=== PATIENT | male | born 1960 | race Caucasian/White ===

== ENCOUNTER → 2024-06-18 | Outpatient (CLI) | payer OTHER, SELFPAY ==
--- NOTE | 2024-06-18 15:50 | RAD_ITS ---
INDICATION: PRE OP EXAMINATION/TECHNIQUE: X-RAY - XR Chest 2 Views COMPARISON: No relevant prior comparison study available FINDINGS: LINES/DEVICES: None. LUNGS: The lungs are hyperinflated. No consolidation, edema or effusion. No pneumothorax. MEDIASTINUM AND CARDIOVASCULAR STRUCTURES: Cardiac silhouette not enlarged. Central airways and mediastinal contour are unremarkable. BONES AND SOFT TISSUES: Unremarkable. RAD/Chest PA and Lateral IMPRESSION: Hyperinflated lungs. Electronically Signed: Patito Sainz MD at 8:31 EST ,
[2024-06-18 16:19] LABS: Absolute Lymphocyte Count 3.63 X10^3/uL (0.83-4.51); Absolute Neutrophil Count 4.5 X10^3/uL (2.0-7.7); Basophil# 0.04 X10^3/uL; Basophil% 0.4 % (0-1); Eosinophil# 0.19 X10^3/uL; Hematocrit 45.5 % (40-54); Hemoglobin 15.2 g/dL (13.0-16.5); Lymphocyte # 3.63 X10^3/ul (0.83-4.51); Lymphocyte % 38.7 % (19-41); Mean Corp Hgb Conc 33.4 g/dL (32-36); Mean Corpuscular Hgb 31.2 pg (27.0-32.0); Mean Corpuscular Volume 93.4 fL (80-94); Mean Platelet Vol. 8.7 fl (6.2-12.0); Monocyte# 1.01 X10^3/uL; Monocyte% 10.8 % (0-10); NRBC Flagged by Analyzer 0 % (0-5); Neutrophil # 4.47 X10^3/uL (2.7-7.7); Neutrophil % 47.8 % (47-70); Platelet Count 372 K/mm3 (150-450); RBC Distribution Width CV 13.2 % (11.6-14.6); RBC Distribution Width SD 45.2 fl (35.1-43.9); Red Blood Count 4.87 M/mm3 (4.6-6.2); White Blood Count 9.4 K/mm3 (4.4-11.0)
[2024-06-18 16:40] LABS: Color, Urine Yellow (Yellow); Glucose, Dipstick Normal (Normal); Ketone-Dipstick Negative (Negative); Leukocyte Esterase-Dipstick Negative /ul (Negative); Nitrite-Dipstick Negative (Negative); Occult Blood-Urine Negative /ul (Negative); Protein-Dipstick Negative (Negative); Urine Bilirubin Dipstick Negative (Negative); Urine Clarity Clear (Clear); Urine Urobilinogen Normal (Normal)
[2024-06-18 16:58] LABS: AST(SGOT) 18 U/L (15-37); Alanine Aminotransfer ALT/SGPT 23 U/L (16-61); Albumin, Serum 3.9 g/dL (3.2-5.0); Alkaline Phosphatase 74 U/L (45-117); Anion Gap 5 (5-15); BUN 8 mg/dL (7-18); BUN/Creat Ratio 10.7 RATIO (10-20); Calcium,Total 9.4 mg/dL (8.5-10.1); Chloride 104 mmol/L (98-107); Cholesterol 193 mg/dL (200); Creatinine, Serum 0.75 mg/dL (0.70-1.30); EST Glomerular Filtration Rate 111 mL/min (>60); Est Glom Filt Rate - Afr Amer 134 mL/min (>60); Globulin 3.8 g/dL (2.2-4.2); Glucose 90 mg/dL (74-106); High Density Lipoprotein 75 mg/dL; Potassium 4.2 mmol/L (3.5-5.1); Protein, Total 7.7 g/dL (6.4-8.2); Sodium Level 136 mmol/L (136-145); Triglycerides 73 mg/dL; Very Low Density Lipoprotein 15 mg/dL (5-40)
== END | disposition home or self-care (01) ==
PROVIDERS: PCP Family Medicine
DX: Z01.818 Encounter for other preprocedural examination (principal); I10 Essential (primary) hypertension; E78.5 Hyperlipidemia, unspecified
CPT/HCPCS: 36415; 71046; 80053; 80061; 81002; 84443; 85025

== ENCOUNTER 2024-06-29 09:49 | Day surgery (SDC) | payer OTHER, SELFPAY ==
[2024-06-29] VITALS (8 sets, daily range): BP systolic 133–164; BP diastolic 82–97; PULSE 82–95; RESP 16–18; TEMP 36.5–36.6; O2SAT 96–99; BMI 22.1
--- NOTE | 2024-06-29 | LES_PTH ---
PATIENT: MIGUEL DOE LOC: [facility] [place][id number] AGE/SX: 63/M ROOM: RE06/29/[address]: Dr. Tea Zaman MD : 1960 BED: DIS: 06/29/2024 SPEC #: [id number] RECD: 06/29/24 13:30 STATUS: JANUARY PAVAN #: [id number] LISA: 06/29/24 00:[address]: Tea Zaman DEPT: SURGICAL PATHOLOGY RECD BY: Los Beckett ENTERED: 06/29/24 13:34 SP TYPE: Lesion OTHR DR: Luis De La Rosa, [facility], RN ONCOLOGY RESEARCH-C Tissues: A - CYST B - Skin of nose, NOS C - Skin of arm Procedures: Surgery Specimen Level III Surgery Specimen Level IV HEADER OPERATION: Excision cyst right cheek with intermediate closure PRE-OP DIAGNOSIS: Neoplasm of uncertain behavior of skin of upper extremity, neoplasm of uncertain behavior of skin of nose, sebaceous cyst TISSUE SUBMITTED: A- Cyst right cheek, B-Lesion nose, C=Lesion left arm MICROSCOPIC DIAGNOSIS A. Cyst right cheek, excision: Inflamed epidermal inclusion cyst. B. 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 Actinic keratosis and solar elastosis. See comment. C. Lesion left arm, excisional biopsy: Basal cell carcinoma, nodular type, completely excised. Actinic keratosis and solar elastosis. 07/02/2024 COMMENT B. The tumor measures 0.7 x 0.2 cm (measured microscopically) and is present at the deep resection margin. Lymph-vascular or perineural invasion is not identified. MICROSCOPIC DESCRIPTION Slides are reviewed. GROSS DESCRIPTION A. Received in fixative is one container labeled with the patient's name and designated Cyst right cheek. The specimen consists of a piece of skin with underlying tissue measuring 4.0 x 2.2cm and 1.0cm in depth. Sections reveal a cyst that was previously ruptured filled with goodson-white cheesy material occupying almost entire underlying tissue. Filament Tester sections are submitted in one cassette. B. Received in fixative is one container labeled with the patient's name and designated Lesion nose. The specimen consists of a shave biopsy of goodson-white skin measuring 1.6 x 1.0cm and 0.1cm in thickness. The specimen is inked, serially sectioned and submitted entirely in one cassette. C. Received in fixative is one container labeled with the patient's name and designated Lesion left arm. The specimen consists of a goodson-white skin ellipse measuring 2.6 x 1.7cm and up to 0.3cm in thickness. The specimen is inked, serially section and submitted entirely in two cassettes. 06/29/2024 TC: 0 CPT:82422k3,01041
[2024-06-29] MEDS: 0.9% Normal Saline (1000mL) 1,000 ML 15 ML IV (10:37)
--- NOTE | 2024-06-29 10:43 | PCM.HP.BLA ---
History and Physical Date of Admission: 06/29/24 The patient is examined and there are no changes to the H&P dated 06/18/2024. He presents for excision of a subcutaneous cyst of the right cheek, excision of the lesion of the nose and excision of a neoplasm of the left arm. The patient is marked in the preop holding area and informed consent obtained. Assessment & Plan Assessment/Plan (1) Neoplasm of uncertain behavior of skin of upper extremity: (2) Neoplasm of uncertain behavior of skin of nose: (3) Sebaceous cyst: PLAN: Plan Patient for excision cyst of the right cheek, Nose, And left arm
--- NOTE | 2024-06-29 11:11 | PRE.ANES_ITS ---
ASA Classification* ASA Classification ASA Classification: 2 Assessment & Plan Anesthesia* Anesthesia Assessment Anesthesia Assessment: Discussed sedation and/or anesthesia options, risks, benefits, and alternatives with patient/parents/legal guardian/POA. Questions invited. The patient/parents/legal guardian/POA seems to understand and agrees to proceed with anesthesia plan. Reviewed the physical assessment, medical history, allergy history and patient home medications list prior to surgery/procedure/anesthetic and documented any changes. Performed airway and anesthesia risk assessments. Anesthesia Type Anesthesia Type: General History Source History Obtained from:: Patient and Chart Anesthesia Focused Assessment* Temperature: 97.7 F Pulse Rate: 82 Blood Pressure: 164/85 Respiratory Rate: 16 Pulse Ox: 96 Oxygen Delivery Method: Room Air Airway Assessment Mouth opens: >3 cm Mallampati Score: I Teeth Condition: Caps/Crowns (Patient has a crown left upper molar. It is tight.) Neck Range of motion (ROM): Full ROM Focused Labs Anesthesia Preop lab: CBC WBC 9.4 K/mm3 (4.4-11.0) 06/18/24 15:29 RBC 4.87 M/mm3 (4.6-6.2) 06/18/24 15:29 Hgb 15.2 g/dL (13.0-16.5) 06/18/24 15:29 Hct 45.5 % (40-54) 06/18/24 15:29 Plt Count 372 K/mm3 (150-450) 06/18/24 15:29 CHEMISTRY Potassium 4.2 mmol/L (3.5-5.1) 06/18/24 15:29 Sodium 136 mmol/L (136-145) 06/18/24 15:29 BUN 8 mg/dL (7-18) 06/18/24 15:29 Creatinine 0.75 mg/dL (0.70-1.30) 06/18/24 15:29 Glucose 90 mg/dL (74-106) 06/18/24 15:29 TSH 3.100 uIU/mL (0.358-3.740) 06/18/24 15:29 COAG Pre-Assessment Diagnosis/Proposed Procedure Planned Operative Procedure(s): (R) Excision cyst right cheek with intermediate closure,excision neoplasm nose, excision neoplasm left arm Anesthesia History 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 When Was Last Pacemaker Check QUESTION #4 FULL TEXT: You/Your Family Experience fever (hyperthermia) with Anesthesia Last Oral Intake Last Oral intake: Last Oral Intake NPO since 21:00 06/29/24 10:23 Meds taken in AM with sips of Yes 06/29/24 10:23 water? Meds patient instructed to lisinopril 06/29/24 10:23 take am of surgery Any additional information?: Yes Meds taken in AM with sips of water?: Yes PONV PONV - water well driller: PONV - water well driller Female No 06/19/24 14:23 HX of Motion Sickness No 06/19/24 14:23 HX of N/V After Surgery No 06/19/24 14:23 Non-Smoker No 06/19/24 14:23 Duration of Surgery greater Yes 06/19/24 14:23 than 60 minutes Number of Risk Factors 1 06/19/24 14:23 PONV Score Low Risk 06/19/24 14:23 Height & Weight Height & Weight: Anesthesia: Height & Weight Height 5 ft 10 in 06/29/24 10:23 Weight: 70 kg 06/29/24 10:23 Body Mass Index (BMI) 22.1 06/29/24 10:23 Respiratory Assessment Respiratory Assessment - water well driller: Respiratory Tract Infection Hx - water well driller Hx Respiratory Tract Infection No 06/19/24 14:23 STOP Sleep Apnea STOP Sleep Apnea - water well driller: STOP Sleep Apnea - water well driller Hx Hypertension Yes: just started new med 12 06/19/24 14: Hx Sleep Apnea No 06/19/24 14:23 CPAP BIPAP Do you snore loudly (louder No 06/19/24 14:23 than talking or can be heard Do you often feel tired/ No 06/19/24 14:23 fatigued/ sleepy during daytime? Has anyone observed you stop No 06/19/24 14:23 breathing during sleep? STOP Results Negative 06/19/24 14:23 QUESTION #5 FULL TEXT : Do you snore loudly (louder than talking or can be heard through closed doors)? 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 Specify any problems Hx of Preganancy in last 3 N/A 06/19/24 14:23 Months Nurse Filling Out Transfusion NBUCHER 06/19/24 14:23 & Questions: Date: 06/19/24 06/19/24 14:23 Time: 14:24 06/19/24 14:23 Patient unable to answer at this time (ie. confused, unrespo /Reproduction History /Reproductive History - water well driller: /Reproductive Hx- water well driller Hx Now No 06/19/24 14:23 Gestational Age (in weeks): EDC: Hx Hx Para Hx Section SAB No 06/19/24 14:23 Active Medications Active Medications: Current Medications Generic Name Dose Route Start Last Admin Trade Name Freq PRN Reason Stop Dose Admin Cefazolin Sodium 2 gm/ N/A 20 mls @ 400 mls/hr 06/29/24 11:30 IV 06/29/24 11:32 PREOP ONE Sodium Chloride 1,000 mls @ 15 mls/hr 06/29/24 10:30 06/29/24 10:37 IV 07/02/24 05:09 15 mls/hr .Q48H DENN[place] Administration Protocol PFSH Medical History Loss of hearing Wears glasses Smoker Hypertension History of hearing problem History of back problems Home Medications ?Medication ?Instructions ?Recorded ?Last Taken ?Type lisinopril 10 mg tablet 20 mg PO DAILY 06/19/24 06/29/24 04:30 History Allergy/AdvReac Type Severity Reaction Status Date / Time No Known Allergies Allergy Verified 06/19/24 14:21 Surgical History History of inguinal hernia repair History of cataract extraction with lens replacement (~2021) Social History Smoking Status: Current every day smoker tobacco type: cigarettes alcohol intake: never substance use type: does not use additional social history: pt denies aspirin and ibuprofen use, pt denies vaping, denies marijuana use, denies edibles. Review of Systems (Anesthesia) ROS Narrative System reviewed and no additional complaints, except as documented.
[2024-06-29] MEDS: Cefazolin 2 GM in Syringe IV (11:25)
[2024-06-29] MEDS: Povidone Iodine 30 ML Opthalmic Sol 1 DRP (11:45)
[2024-06-29] MEDS: Lidocaine 1% /Epi 1:100 (20ml) 20 ML Vial (11:51)
[2024-06-29] MEDS: BACITRACIN/POLYMYXIN B 15 GM Tube 1 APPLIC (12:56)
--- NOTE | 2024-06-29 13:06 | EX.PCM.DISCH ---
Discharge Instructions Dressing / Incision Additional Dressing/Incision Instructions:: On the cheek, you can leave this dressing on until seen next week in the office. (If it falls off, replace with gauze and tape in place) On the nose, apply antibiotic ointment (like neosporin, bacitracin, or triple antibiotic ointment) 1 x a day On the arm, you can leave this dressing on until seen in the office next week. Until seen next week, keep the dressings dry (sponge bathe only) Take the oral antibiotic (Keflex) 2 x a day until finished. Keep your back elevated (recliner position) at night to decrease swelling and bruising. Follow Up Care Please Follow Up With: Tea Zaman MD When: next week Test Results: Test results from this visit will be discussed in further detail at your follow-up appointment, if applicable. Discharge Plan Admission Attending Provider: Tea Zaman Primary Care Provider: Luis De La Rosa Instructions Print Language: Canadian Discharge Orders/Prescriptions Prescriptions: New cephalexin 500 mg capsule 500 mg PO BID 7 Days Qty: 14 0RF No Action lisinopril 10 mg tablet 20 mg PO DAILY Referrals / Follow Up: Luis De La Rosa, LANGUAGE AND LITERATURE DIVISION CHAIR-C [Primary Care Provider] - Disposition Disposition (needs filled in before D/C Order can be placed): Home, Self Care
--- NOTE | 2024-06-29 13:12 | PCM.POST.ANE ---
Anesthesia: Postop Eval I Current Vital Signs Temperature: 97.8 F Pulse Rate: 90 Blood Pressure: 137/82 Respiratory Rate: 18 Pulse Ox: 98 Oxygen Delivery Method: Room Air Assessment Airway patent: Yes Spontaneous unlabored respirations: Yes Mental status: Awake and Calm nausea: No Vomiting: No Anesthesia Complication: No Fluid Hydration Crystalloid volume administer (ml): 1,000 Total IV fluid infused: 1,000 Progress Note Anesthesia document: Postop Eval 1 completed: Yes
--- NOTE | 2024-06-29 13:12 | PCM.OPRPT ---
Problems Associated Problem List Diagnoses (1) Neoplasm of uncertain behavior of skin of upper extremity: (2) Neoplasm of uncertain behavior of skin of nose: (3) Sebaceous cyst: Operative Report (Standard) Operative Information Date of Procedure: 06/29/24 Pre-Operative Diagnosis: Cyst of right cheek Atrophic neoplasm of nasal dorsum Ulcerated lesion left elbow Post-Operative Diagnosis: Same Surgery/Procedure Performed: Excision cyst of right cheek (5.5 cm) with intermediate closure of the same length Excision neoplasm nose (2.0 cm) Excision neoplasm left arm at the elbow (5.0 cm) record center specialist: Yes Four Slide Operator: Kirill Lozada Tasks completed by nurse first assist: Retracting Type of Anesthesia: General RN Documented Start/Stop Times: Operation Date: 06/29/24 11:30 Case Time Into Pre-Op 06/29/24 10:12 Out of Pre-Op 06/29/24 11:19 Anesthesia Start 06/29/24 11:21 Into Room 06/29/24 11:21 Procedure Start 06/29/24 11:51 Procedure End 06/29/24 13:02 Anesthesia End 06/29/24 13:07 Out of Room 06/29/24 13:07 Procedure Start Time: 11:51 Procedure Stop Time: 13:02 Select all DRAINS/GRAFTS/IMPLANTS that apply: None Estimated Blood Loss: Minimal Specimen collected: Yes Description of specimen(s) removed: Cyst of right cheek Neoplasm of nasal dorsum Neoplasm left elbow Description of surgery: The patient presents today with a large draining cystic lesion of the right cheek, and atrophic neoplasm of the nasal dorsum, and an ulcerated lesion of the left elbow. He presents for excision of the above sites and submission for pathologic valuation. Informed consent was obtained prior to surgery. He is aware the potential need for further surgery depending on the resulting pathology. The potential risks of the procedure were reviewed including the potential for facial asymmetry. He is marked in the preop holding area prior to surgery. The patient is brought to the operating room and placed under general anesthesia in the supine position. The face and left arm are prepped and draped in the usual sterile fashion. 1% Xylocaine with epinephrine is used for local anesthetic. Following this, an elliptical incision is made over the apex of the cyst and dissection carried down to the cyst. It is enucleated from its bed. The cyst is noted to be draining from an open site during the procedure. This is primarily sebaceous debris however a purulent drainage also returns. The cyst is in this way totally removed. It is passed off the operative field to be sent to pathology. Hemostasis is controlled with cautery. The wound is irrigated with saline irrigation. The wound is then closed and layers using a Monocryl suture in the subcutaneous tissue and dermis. Skin edges are approximated with a running chromic suture. The site is dressed with dry gauze and tape. We then directed our attention to neoplasm of the nose and after this is anesthetized with 1% Xylocaine with epinephrine, it is excised and passed off the operative field to be sent to pathology. Hemostasis is controlled with cautery. The wound is then closed with a combination of interrupted silk suture as well as a running chromic suture. Antibiotic ointment is placed on the site. We then directed our attention to the ulcerated neoplasm of the left elbow. After this is anesthetized with 1% Xylocaine with epinephrine to facilitate hemostasis, it is excised down to subcutaneous tissue and passed off the operative field to be sent to pathology. The site is then closed with a combination of interrupted and running chromic suture. Xeroform gauze, type VII gauze, and an Keron wrap were used to dress the site. He tolerated the procedure well was taken to the recovery area in an awakening in stable condition. Needle and sponge counts are correct. Surgical Findings: As above Complications Complications: No Admit VTE Documentation VTE Mechan Device Prophylaxis: SCD's
--- NOTE | 2024-06-29 13:20 | POSTOPAN2_ITS ---
Anesthesia Postop Eval I Sum Postop Eval Completion status Anesthesia document: Postop Eval 1 completed: Yes Anesthesia Postop Eval I Summary Anesthesia Postop Eval I Summary: Anesthesia Postop Eval I: Assessment Summary Airway patent Yes 06/29/24 13:12 [email or web address] [email or web address] Spontaneous unlabored Yes 06/29/24 13:12 PIPE [email or web address].DARLIN respirations Mental status Awake,Calm 06/29/24 13:12 [email or web address] nausea No 06/29/24 13:12 PIPE [email or web address].[email or web address] Vomiting No 06/29/24 13:12 PIPE LAYER.[email or web address] Anesthesia Postop Eval I: Fluid Summary Crystalloid volume administer 1,000 06/29/24 13:12 PIPE [email or web address] (ml) Colloids volume administered ( ml) Blood Product volume administered (ml) Total IV fluid infused 1,000 06/29/24 13:12 PIPE [email or web address].[email or web address] Anesthesia Postop Eval I: Summary Notes Anesthesia Complication No 06/29/24 13:12 PIPE [email or web address] Anesthesia Complication Comment: Post-operative progress note Anesthesia: Postop Eval II Evaluation Mental status: Awake Pain Level: 1 nausea: No Vomiting: No
--- NOTE | 2024-06-29 13:20 | PCM.POSTANE2 ---
Anesthesia Postop Eval I Sum Postop Eval Completion status Anesthesia document: Postop Eval 1 completed: Yes Anesthesia Postop Eval I Summary Anesthesia Postop Eval I Summary: Anesthesia Postop Eval I: Assessment Summary Airway patent Yes 06/29/24 13:12 FOUNDRY [email or web address] Spontaneous unlabored Yes 06/29/24 13:12 FOUNDRY HAND.DARLIN respirations Mental status Awake,Calm 06/29/24 13:12 FOUNDRY HAND.[email or web address] nausea No 06/29/24 13:12 FOUNDRY HAND.[email or web address] Vomiting No 06/29/24 13:12 FOUNDRY HAND.[email or web address] Anesthesia Postop Eval I: Fluid Summary Crystalloid volume administer 1,000 06/29/24 13:12 FOUNDRY HAND.[email or web address] (ml) Colloids volume administered ( ml) Blood Product volume administered (ml) Total IV fluid infused 1,000 06/29/24 13:12 FOUNDRY HAND.[email or web address] Anesthesia Postop Eval I: Summary Notes Anesthesia Complication No 06/29/24 13:12 FOUNDRY HAND.[email or web address] Anesthesia Complication Comment: Post-operative progress note Anesthesia: Postop Eval II Evaluation Mental status: Awake Pain Level: 1 nausea: No Vomiting: No
== END 2024-06-29 14:08 | disposition home or self-care (01) ==
LOC: SDC 09:53 → AC 09:55
PROVIDERS: Referring Provider Plastic Surgery; Visit Provider Plastic Surgery
PROC: (CPT 11446; principal; 2024-06-29 11:15)
DX: C44.619 Basal cell carcinoma of skin of left upper limb, including shoulder (principal); L72.3 Sebaceous cyst; Z79.899 Other long term (current) drug therapy
CPT/HCPCS: 11446; 11642; 11606; 12053; 00300; 88304; 88305; J2405

== ENCOUNTER → 2024-07-23 | Outpatient (CLI) | payer OTHER, SELFPAY | END | disposition home or self-care (01) | LOC: LAB 12:30 | DX: Z01.818 Encounter for other preprocedural examination (principal) | CPT/HCPCS: 36415; 80053; 84439; 84443; 84481; 85025 ==

== ENCOUNTER 2024-08-02 05:44 | Day surgery (SDC) | payer OTHER, SELFPAY ==
[2024-08-02] VITALS (9 sets, daily range): BP systolic 109–150; BP diastolic 67–95; PULSE 77–94; RESP 16; TEMP 36.4–37.1; O2SAT 92–100; BMI 22.4
[2024-08-02] MEDS: 0.9% Normal Saline (1000mL) 1,000 ML 15 ML IV (06:13)
--- NOTE | 2024-08-02 06:21 | PRE.ANES_ITS ---
ASA Classification* ASA Classification ASA Classification: 2 Assessment & Plan Anesthesia* Anesthesia Assessment Anesthesia Assessment: Discussed sedation and/or anesthesia options, risks, benefits, and alternatives with patient/parents/legal guardian/POA. Questions invited. The patient/parents/legal guardian/POA seems to understand and agrees to proceed with anesthesia plan. Reviewed the physical assessment, medical history, allergy history and patient home medications list prior to surgery/procedure/anesthetic and documented any changes. Performed airway and anesthesia risk assessments. Anesthesia Type Anesthesia Type: General History Source History Obtained from:: Patient and Chart Anesthesia Focused Assessment* Temperature: 98.0 F Pulse Rate: 86 Blood Pressure: 127/82 Respiratory Rate: 16 Pulse Ox: 100 Oxygen Delivery Method: Room Air Airway Assessment Mouth opens: >3 cm Mallampati Score: II Teeth Condition: Intact Focused Labs Anesthesia Preop lab: CBC WBC 9.4 K/mm3 (4.4-11.0) 06/18/24 15:29 RBC 4.87 M/mm3 (4.6-6.2) 06/18/24 15:29 Hgb 15.2 g/dL (13.0-16.5) 06/18/24 15:29 Hct 45.5 % (40-54) 06/18/24 15:29 Plt Count 372 K/mm3 (150-450) 06/18/24 15:29 CHEMISTRY Potassium 4.2 mmol/L (3.5-5.1) 06/18/24 15:29 Sodium 136 mmol/L (136-145) 06/18/24 15:29 BUN 8 mg/dL (7-18) 06/18/24 15:29 Creatinine 0.75 mg/dL (0.70-1.30) 06/18/24 15:29 Glucose 90 mg/dL (74-106) 06/18/24 15:29 TSH 3.100 uIU/mL (0.358-3.740) 06/18/24 15:29 COAG Pre-Assessment Diagnosis/Proposed Procedure Planned Operative Procedure(s): Excision squamous cell carcinoma nose with frozen section(2.5cm)with possible rotation flap Anesthesia History Anesthesia History - char conveyor tender: Anesthesia History - char conveyor tender Hx Hospitalization No 07/31/24 11:35 Any Problems With Anesthesia No 07/31/24 11:35 Cholinesterase deficiency No 07/31/24 11:35 You/Your Family Experience No 07/31/24 11:35 fever (hyperthermia) with Relationship Recent Exposure to Contagious No 08/02/24 06:08 Disease Does patient have nerve No 07/31/24 11:35 stimulator Patient instructed to have device shut off --Does patient have Pacemaker No 08/02/24 06:08 or ICD? When Was Last Pacemaker Check QUESTION #4 FULL TEXT: You/Your Family Experience fever (hyperthermia) with Anesthesia Last Oral Intake Last Oral intake: Last Oral Intake NPO since 18:00 08/02/24 06:08 Meds taken in AM with sips of No 08/02/24 06:08 water? Meds patient instructed to take am of surgery PONV PONV - char conveyor tender: PONV - char conveyor tender Female No 07/31/24 11:35 HX of Motion Sickness No 07/31/24 11:35 HX of N/V After Surgery No 07/31/24 11:35 Non-Smoker No 07/31/24 11:35 Duration of Surgery greater No 07/31/24 11:35 than 60 minutes Number of Risk Factors PONV Score Height & Weight Height & Weight: Anesthesia: Height & Weight Height 5 ft 9 in 08/02/24 06:08 Weight: 69 kg 08/02/24 06:08 Body Mass Index (BMI) 22.4 08/02/24 06:08 Respiratory Assessment Respiratory Assessment - char conveyor tender: Respiratory Tract Infection Hx - char conveyor tender Hx Respiratory Tract Infection No 07/31/24 11:35 STOP Sleep Apnea STOP Sleep Apnea - char conveyor tender: STOP Sleep Apnea - char conveyor tender Hx Hypertension Yes: just started new med 12 07/31/24 11:35 /05/03 Hx Sleep Apnea No 07/31/24 11:35 CPAP BIPAP Do you snore loudly (louder No 07/31/24 11:35 than talking or can be heard Do you often feel tired/ No 07/31/24 11:35 fatigued/ sleepy during daytime? Has anyone observed you stop No 07/31/24 11:35 breathing during sleep? STOP Results Negative 07/31/24 11:35 QUESTION #5 FULL TEXT : Do you snore loudly (louder than talking or can be heard through closed doors)? Tobacco Use History Tobacco Use History - char conveyor tender: Tobacco Use History - char conveyor tender Tobacco Use Smoking Status Current every day smoker 07/31/24 11:35 Hx Tobacco Use Yes 07/31/24 11:35 Years Smoking Packs Smoked per Day 1 07/31/24 11:35 Smoking Cessation Date was within the last 15 years Hx Smoking Cessation Date Hx Smoking Cessation Counseling Hematologic Medial History Hematologic Hx - char conveyor tender: Hematologic Medical Hx - biometrics analyst Hx of Blood Transfusion No 07/31/24 11:35 Hx of Transfusion in last 3 No 07/31/24 11:35 Months Date of Last Transfusion (if within last 3 months) Ever experience any problems No 07/31/24 11:35 with transfusion(s)? Specify any problems Hx of Preganancy in last 3 N/A 07/31/24 11:35 Months Nurse Filling Out Transfusion NBUCHER 07/31/24 11:35 & Questions: Date: 07/31/24 07/31/24 11:35 Time: 11:36 07/31/24 11:35 Patient unable to answer at this time (ie. confused, unrespo /Reproduction History /Reproductive History - char conveyor tender: /Reproductive Hx- char conveyor tender Hx Now Gestational Age (in weeks): EDC: Hx Hx Para Hx Section SAB No 07/31/24 11:35 Active Medications Active Medications: Current Medications Generic Name Dose Route Start Last Admin Trade Name Freq PRN Reason Stop Dose Admin Cefazolin Sodium 2 gm/ N/A 20 mls @ 400 mls/hr 08/02/24 07:30 IV 08/02/24 07:32 PREOP ONE Sodium Chloride 1,000 mls @ 15 mls/hr 08/02/24 06:15 08/02/24 06:13 IV 08/07/24 19:34 15 mls/hr .Q48H [place] Administration Protocol [facility] Medical History Loss of hearing Wears glasses Smoker Hypertension History of hearing problem History of back problems Home Medications ?Medication ?Instructions ?Recorded ?Last Taken ?Type lisinopril 10 mg tablet 20 mg PO DAILY 06/19/24 08/01/24 History Allergy/AdvReac Type Severity Reaction Status Date / Time No Known Allergies Allergy Verified 08/02/24 06:04 Surgical History History of excision of mass History of inguinal hernia repair History of cataract extraction with lens replacement (~2021) Social History Smoking Status: Current every day smoker tobacco type: cigarettes alcohol intake: never substance use type: does not use additional social history: pt denies aspirin and ibuprofen use, pt denies vaping, denies marijuana use, denies edibles. Review of Systems (Anesthesia) ROS Narrative System reviewed and no additional complaints, except as documented.
--- NOTE | 2024-08-02 07:08 | PCM.HP.BLA ---
History and Physical Date of Admission: 08/02/24 The patient is examined and there are no changes to the H&P of 07/23/24. Pt for excision SCC nose with FS and possible rotation flap. Informed consent obtained. Pt marked in the pre-op area. 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
--- NOTE | 2024-08-02 07:30 | LES_PTH ---
PATIENT: MIGUEL DOE [place] [facility] [place][id number] AGE/SX: 63/M ROOM: RE08/02/[address]: Dr. Tea Zaman MD : 1960 BED: DIS: 08/02/2024 SPEC #: [id number] RECD: 08/02/24 08:38 STATUS: JANUARY REAbby #: [id number] LISA: 08/02/24 07:[address]: Tea Zaman DEPT: SURGICAL PATHOLOGY RECD BY: Aubrey Isabel ENTERED: 08/02/24 08:39 SP TYPE: Lesion OTHR DR: Luis De La Rosa, [facility], CHILD AND ADOLESCENT PSYCHIATRIST-C Tissues: Skin of nose, NOS Procedures: Frozen Section (charge) Frozen Section Add'l ([facility]) Surgery Specimen Level IV HEADER OPERATION: Excision squamous cell carcinoma nose with frozen section PRE-OP DIAGNOSIS: Squamous cell carcinoma of skin of nose TISSUE SUBMITTED: A- Squamous cell carcinoma of nose, B- Additional deep margin, C- 2nd additional margin, D- 3rd additional margin, E- 4th additional margin FROZEN SECTION DIAGNOSIS A. Nose lesion, excisional biopsy: Invasive squamous cell carcinoma. Deep margin is positive, other margins are free of tumor. B. Nose lesion, additional deep margin: Positive for invasive squamous cell carcinoma at 9o'clock margin. C. Nose lesion, additional margins: 3o'clock margin piece, negative for carcinoma. 9o'clock margin piece, positive for squamous cell carcinoma, close to deep margin. D. Nose lesion, 3rd additional margin: Positive for squamous cell carcinoma. E. Nose lesion, 4th additional margin: Negative for carcinoma. . 08/02/2024 MICROSCOPIC DIAGNOSIS A. Nose lesion, excisional biopsy: Invasive squamous cell carcinoma. See comment. B. Nose lesion, additional deep margin: Invasive squamous cell carcinoma. C. Nose lesion, 2nd additional margin: 3o'clock margin is negative for carcinoma. 9o'clock margin is positive for invasive squamous cell carcinoma at the deep margin. D. Nose lesion, 3rd additional margin: Positive for invasive squamous cell carcinoma at the deep margin. E. Nose lesion, 4th additional margin: Positive for invasive squamous cell carcinoma at the deep margin. . 08/03/2024 COMMENT A. The tumor is present at the deep margin of the specimen. Peripheral margins are negative for tumor. E. The invasive squamous cell carcinoma is noted only at the permanent sections slide. Frozen section slides are reviewed again and negative for carcinoma. MICROSCOPIC DESCRIPTION Slides are reviewed. GROSS DESCRIPTION A. Received fresh for frozen section diagnosis labeled with the patient's name is a specimen designated Skin of nose. The specimen is oriented on a gauze piece The specimen consists of a piece of goodson-white skin measuring 2.2 x 1.1 x 0.4cm. This piece is inked as follows: 12o'clock-black, 6o'clock-blue, 3 o'clock-green, 9 o'clock- yellow. The specimen is serially sectioned and submitted entirely for frozen section diagnosis in two cassettes. Cassette 1 contains the 3&9o'clock margins. B. Received fresh for frozen section diagnosis labeled with the patient's name is a specimen designated Additional deep margin. The specimen is oriented on a gauze piece The specimen consists of a goodson soft tissue measuring 1.5 x 1.5 x 0.1cm. The specimen is inked as follows: 12o'clock-black, 6o'clock-blue, 3 o'clock-green, 9 o'clock- yellow. The entire specimen is submitted in one cassette for frozen section diagnosis (enface margins). C. Received fresh for frozen section diagnosis labeled with the patient's name is a specimen designated 2nd additional margin. The specimen is oriented on a gauze piece. The specimen consists of two pieces of goodson-white skin. The specimen oriented as 3o'clock measures 2.3 x 0.2 x 0.1cm. and a piece oriented as 9 o'clock measures 2 x 0.7 x 0.1cm. The specimen is inked as follows: 12o'clock-black, 6o'clock-blue, 3 o'clock-green, 9 o'clock- yellow. The entire specimen is submitted in two cassettes for frozen section diagnosis. D. Received fresh for frozen section diagnosis labeled with the patient's name is a specimen designated 3rd additional margin. The specimen is oriented on a gauze piece. The specimen consists of a piece of goodson soft tissue measuring 2 x 0.2 x 0.1cm. The specimen is inked as follows: 12o'clock margin-black, 6o'clock margin-blue. The entire specimen is submitted for frozen section diagnosis in one cassette. E. Received fresh for frozen section diagnosis labeled with the patient's name is a specimen designated 4th additional margin. The specimen is oriented on a gauze piece. The specimen consists of a piece of goodson soft tissue measuring 1.5 x 0.2 x 0.6cm. The specimen is inked as follows: 12o'clock margin-black, 6o'clock margin-blue. The entire specimen is submitted for frozen section diagnosis in one cassette. SJ.mr 08/02/2024 TC:0 CPT:75892u8,[id number] ADDENDUM ADDENDUM ADDENDUM ADDENDUM ADDENDUM ADDENDUM ADDENDUM ADDENDUM ADDENDUM ADDENDUM ADDENDUM ADDENDUM ADDENDUM ADDENDUM ADDENDUM ADDENDUM ADDENDUM 10/05/2024 13:06 ADDENDUM 10/05/2024 13:06 ADDENDUM 10/05/2024 13:06 ADDENDUM 10/05/2024 13:06 ADDENDUM 10/05/2024 13:06 This addendum is to report re-review per Dr Curtis's request: Dr Curtis's questions - Size and depth of tumor: Evaluation of the size and depth of the tumor is limited by the fact that the tumor was received in multiple pieces with re-resected margins. The greatest dimensions observed on the glass slide is approximately 0.6 cm wide by 1.2 cm deep, and tumor extends into fibroadipose tissue deep to skeletal muscle. The length along the long axis of the excision cannot be assessed. Presence of lymphovascular and perineural invasion: Not identified. Confirm deep surgical margin in part E: The deep surgical margin is positive for squamous cell carcinoma (confirmed).
[2024-08-02] MEDS: Cefazolin 2 GM in Syringe IV (07:50)
[2024-08-02] MEDS: Lidocaine 1% /Epi 1:100 (20ml) 20 ML Vial (08:10)
--- NOTE | 2024-08-02 11:12 | DCINST_ITS ---
Discharge Instructions Dressing / Incision Additional Dressing/Incision Instructions:: Keep your back elevated (recliner position) to reduce bleeding and swelling. Avoid bending, lifting, straining to reduce bleeding and swelling. Take the oral antibiotic (Keflex) 2 times a day until finished. Keep the dressing and tape dry??do not remove until seen in the office Follow Up Care Please Follow Up With: Tea Zaman MD When: In 1 week Test Results: Test results from this visit will be discussed in further detail at your follow- up appointment, if applicable. Discharge Plan Admission Attending Provider: Tea Zaman Primary Care Provider: Luis De La Rosa Instructions Print Language: Ethiopian Discharge Orders/Prescriptions Prescriptions: New cephalexin 500 mg capsule 500 mg PO BID 7 Days Qty: 14 0RF No Action lisinopril 10 mg tablet 20 mg PO DAILY Referrals / Follow Up: Luis De La Rosa, REFINERY OPERATOR [facility] [Primary Care Provider] - Disposition Disposition (needs filled in before D/C Order can be placed): Home, Self Care
--- NOTE | 2024-08-02 11:15 | PCM.OPRPT ---
Operative Report (Standard) Operative Information Date of Procedure: 08/02/24 Pre-Operative Diagnosis: Biopsy-proven SCC of nasal dorsum Post-Operative Diagnosis: Same Surgery/Procedure Performed: Excision SCC nasal dorsum with frozen section x 5; rotation flap closures x 2 for wound closure (3 x 4 cm; 3 x 4cm) chemical strength tester: No Type of Anesthesia: General RN Documented Start/Stop Times: Operation Date: 08/02/24 07:30 Case Time Into Pre-Op 08/02/24 05:51 Out of Pre-Op 08/02/24 07:26 Anesthesia Start 08/02/24 07:30 Into Room 08/02/24 07:30 Procedure Start 08/02/24 08:00 Procedure End 08/02/24 11:08 Procedure Start Time: 08:00 Procedure Stop Time: 11:08 Select all DRAINS/GRAFTS/IMPLANTS that apply: None Estimated Blood Loss: <20cc Specimen collected: Yes Description of specimen(s) removed: SCC nasal dorsum with frozen section x 5 Description of surgery: The patient presents with biopsy-proven SCC of the dorsum of the nose. He presents for removal with frozen section evaluation for clear margins. He is aware of the potential for rotation flap closure of the resulting wound. Patient is brought to the operating room and placed under general anesthesia in the supine position. Care is taken to pad all pressure points, apply sequential compression stockings, and a warming blanket. The face is prepped and draped in the usual sterile fashion. We initially began with excising the previously biopsied skin cancer site on the dorsum of the nose. This is marked for orientation and passed off the operative field. Hemostasis is controlled with cautery. Frozen section reveals positive margin and therefore a repeat frozen section is performed in the same way. In total, 5 frozen sections were needed to obtain clear margins of the periphery and deep. Hemostasis is controlled with cautery. The size of the wound eliminates the possibility of primary closure and therefore rotation flap closures from the upper nasolabial fold are designed bilaterally. These flaps are initially injected peripheral to the flap with 1% Xylocaine with epinephrine. The flaps are then elevated in a subcutaneous/fascial plane. Hemostasis is controlled with cautery. The flaps are then transposed medially. These are then tacked together using silk suture. With adequate wound closure accomplished, further refinement the closure is done with running simple and horizontal mattress chromic sutures. Dermabond is applied to the incision along with Steri-Strips. A thin layer of Nitropaste is applied to the base of the flaps. He tolerated the procedure well was taken to the recovery area in an awake and stable condition. Needle and sponge counts are correct. Surgical Findings: Large SCC of the nasal dorsum Complications Complications: No Admit VTE Documentation VTE Present on Admission: No VTE Mechan Device Prophylaxis: SCD's
--- NOTE | 2024-08-02 11:20 | PCM.POST.ANE ---
Anesthesia: Postop Eval I Current Vital Signs Temperature: 98.2 F Pulse Rate: 88 Blood Pressure: 123/82 Respiratory Rate: 16 Pulse Ox: 98 Oxygen Delivery Method: Room Air Assessment Airway patent: Yes Spontaneous unlabored respirations: Yes Mental status: Asleep nausea: No Vomiting: No Anesthesia Complication: No Fluid Hydration Crystalloid volume administer (ml): 1,500 Total IV fluid infused: 1,500 Progress Note Anesthesia document: Postop Eval 1 completed: Yes
[2024-08-02] MEDS: Acetaminophen 325 MG Tablet 650 MG PO (13:12)
--- NOTE | 2024-08-02 19:08 | POSTOPAN2_ITS ---
Anesthesia Postop Eval I Sum Postop Eval Completion status Anesthesia document: Postop Eval 1 completed: Yes Anesthesia Postop Eval I Summary Anesthesia Postop Eval I Summary: Anesthesia Postop Eval I: Assessment Summary Airway patent Yes 08/02/24 11:22 [email or web address] [email or web address] Spontaneous unlabored Yes 08/02/24 11:22 [email or web address] [email or web address] respirations Mental status Asleep 08/02/24 11:22 [email or web address] nausea No 08/02/24 11:22 [email or web address] [email or web address] Vomiting No 08/02/24 11:22 [email or web address] [email or web address] Anesthesia Postop Eval I: Fluid Summary Crystalloid volume administer 1,500 08/02/24 11:22 [email or web address] (ml) Colloids volume administered ( ml) Blood Product volume administered (ml) Total IV fluid infused 1,500 08/02/24 11:22 [email or web address] Anesthesia Postop Eval I: Summary Notes Anesthesia Complication No 08/02/24 11:22 [email or web address] Anesthesia Complication Comment: Post-operative progress note Anesthesia: Postop Eval II Evaluation Mental status: Awake and Calm Pain Level: 1 nausea: No Vomiting: No Complications Anesthesia Complication: No
--- NOTE | 2024-08-02 19:08 | PCM.POSTANE2 ---
Anesthesia Postop Eval I Sum Postop Eval Completion status Anesthesia document: Postop Eval 1 completed: Yes Anesthesia Postop Eval I Summary Anesthesia Postop Eval I Summary: Anesthesia Postop Eval I: Assessment Summary Airway patent Yes 08/02/24 11:22 [email or web address] Spontaneous unlabored Yes 08/02/24 11:22 PROCEDURAL [email or web address] respirations Mental status Asleep 08/02/24 11:22 [email or web address] nausea No 08/02/24 11:22 PROCEDURAL [email or web address] Vomiting No 08/02/24 11:22 [email or web address] Anesthesia Postop Eval I: Fluid Summary Crystalloid volume administer 1,500 08/02/24 11:22 [email or web address] (ml) Colloids volume administered ( ml) Blood Product volume administered (ml) Total IV fluid infused 1,500 08/02/24 11:22 [email or web address] Anesthesia Postop Eval I: Summary Notes Anesthesia Complication No 08/02/24 11:22 [email or web address] Anesthesia Complication Comment: Post-operative progress note Anesthesia: Postop Eval II Evaluation Mental status: Awake and Calm Pain Level: 1 nausea: No Vomiting: No Complications Anesthesia Complication: No
== END 2024-08-02 13:32 | disposition home or self-care (01) ==
LOC: SDC 05:45 → AC 05:47
PROVIDERS: Referring Provider Plastic Surgery; Visit Provider Plastic Surgery
PROC: (CPT 11646; principal; 2024-08-02 07:20)
DX: C44.321 Squamous cell carcinoma of skin of nose (principal)
CPT/HCPCS: 11646; 00300; 88305; 88331; 88332; J2405

== ENCOUNTER → 2024-11-06 | Outpatient (CLI) | payer OTHER, SELFPAY ==
--- NOTE | 2024-11-06 14:12 | CT_ITS ---
PROCEDURE: LOW DOSE CT LUNG SCREENING (CTLUNGSCREEN), 11/06/2024 REASON FOR EXAM: LUNG CANCER SCREENING TECHNIQUE: Low dose CT (LDCT) chest was performed without contrast. Multiplanar reformats and MIP reconstructions were generated. RADIATION DOSE SUMMARY: CTDlvol: 1.59 mGy DLP: 55.79 mGycm One or more dose reduction techniques were used (e.g., Automated exposure control, adjustment of the mA and/or kV according to patient size, use of iterative reconstruction technique). COMPARISON: No prior CT or CTA chest FINDINGS: Note that evaluation of the vasculature, anastacia, and soft tissues is limited in the absence of IV contrast. Heart/pericardium:Trace aortic annular calcification. Moderate multivessel coronary atherosclerosis and/or stents.. Aorta: Mild atherosclerosis. Pulmonary arteries: Unremarkable. Lymph nodes: Precarinal node, 10 mm short axis. Lungs/pleura: Trace apical emphysema. Mild biapical pleural/parenchymal scarring.. 2 x 4 mm subpleural LEFT upper lobe micronodule (series 2, image 101). Airways: Unremarkable. Chest wall: Unremarkable. Upper abdomen: Grossly unremarkable. Musculoskeletal: Demineralization suspected. Mild scoliosis may be positional. Presumed bone island within the T11 vertebral body.. CT/Low Dose CT Lung Screening IMPRESSION: 1. Lung-RADS category: 2S (benign appearance or behavior, <1% chance of maligna ncy); continue annual screening with LDCT. 2. Other clinically significant or potentially significant non-lung cancer find ings: Coronary arterial calcification moderate or severe. 3. Borderline minimal mediastinal lymphadenopathy, nonspecific and potentially reactive, however given reported history of malignancy, recommend clinical follow-up. Comparison with any available outsid e imaging may be helpful to establish stability. 4. Additional description as above. Recommendations per [employer]. Lung CT Screening Reporting and Data System (Lung-RADS) v. 2022 Reading Location: [id number]
== END | disposition home or self-care (01) ==
LOC: CT 14:11
PROVIDERS: Referring Provider Nurse Practitioner Family; Visit Provider Nurse Practitioner Family
DX: Z12.2 Encounter for screening for malignant neoplasm of respiratory organs (principal); Z87.891 Personal history of nicotine dependence
CPT/HCPCS: 71271

== ENCOUNTER → 2025-02-11 | Outpatient (CLI) | payer OTHER, SELFPAY ==
--- NOTE | 2025-02-11 06:17 | ECHOD_ITS ---
Reason For Study Reason For Study: CHEST PAIN Procedure This was a 2D Doppler, Color Flow transthoracic echocardiogram. Exam performed in department. Left Ventricle Normal LV size. Left ventricular systolic function is normal. The left ventricular ejection fraction is 70 %. Stage 1 diastolic dysfunction. No regional wall motion abnormalities noted. Right Ventricle Normal RV size. Normal systolic function. Atria Normal left atrium. Normal right atrium. Mitral Valve Normal mitral valve. Tricuspid Valve Normal tricuspid valve. Aortic Valve Trisinus/trileaflet aortic valve. Pulmonic Valve Normal pulmonic valve. Great Vessels Normal aortic root. The pulmonary artery is normal size. Inferior vena cava collapse with respiration. Pericardium/Pleural No pericardial effusion. MMode/2D Measurements & Calculations LVIDd: 3.7 cm IVSd: 1.1 cm Ao root diam: 3.3 cm LVIDs: 2.1 cm LVPWd: 1.2 cm RVDd: 3.5 cm FS: 43.7 % LAV(MOD-bp): 23.9 ml LVAd ap4: 27.2 cm2 SV(MOD-sp4): 57.9 ml LAV(MOD-bp) Indexed: 13.4 ml/m2 LVLd ap4: 7.7 cm SI(MOD-sp4): 32.4 ml/m2 LAV(MOD-sp2): 33.6 ml EDV(MOD-sp4): 79.5 ml LAV(MOD-sp4): 15.8 ml EDV(sp4-el): 81.8 ml LVAs ap4: 12.6 cm2 LVLs ap4: 6.4 cm ESV(MOD-sp4): 21.6 ml ESV(sp4-el): 20.9 ml EF(MOD-sp4): 72.8 % EF(sp4-el): 74.4 % SV(sp4-el): 60.8 ml LA A4 area: 8.3 cm2 LA dimension(2D): 3.1 cm RA A4 area: 10.4 cm2 Time Measurements MV dec time: 0.28 sec Doppler Measurements & Calculations MV E max zheng: 69.3 cm/sec Lat Peak E' Zheng: 10.3 cm/sec Med Peak E' Zheng: 9.4 cm/sec MV A max zheng: 77.3 cm/sec E/E' lat: 6.7 E/E' med: 7.4 MV E/A: 0.90 MV V2 max: 83.6 cm/sec Ao V2 max: 152.2 cm/sec MV max P.8 mmHg MV dec slope: 257.0 cm/sec2 Ao max P.3 mmHg MV V2 mean: 56.4 cm/sec Ao V2 mean: 102.4 cm/sec MV mean P.4 mmHg Ao mean P.9 mmHg MV V2 VTI: 34.0 cm Ao V2 VTI: 35.2 cm AV (velocity ratio): 0.63 LV V1 max: 107.0 cm/sec PA V2 max: 113.0 cm/sec LV V1 max P.6 mmHg PA V2 mean: 75.5 cm/sec LV V1 mean P.3 mmHg LV V1 mean: 70.0 cm/sec LV V1 VTI: 22.1 cm ECHO/Echo Complete Interpretation Summary Normal LV size. Left ventricular systolic function is normal. The left ventricular ejection fraction is 70 %. Stage 1 diastolic dysfunction. Ordering Physician: Rolan Hoover Referring Physician: Rolan Hoover Performed By: Emely Luciano RCS
--- OUTSIDE RECORDS SUMMARY | 2025-02-11 06:19 | XMS RPT_ITS | CCD ---
Author Organization [facility] Care Team Providers Care Director Of Plant Operations Name Role Phone Beam REEL CUTTER-C, Zebulun Primary Care Provider Austyn MAYA, Dr. Metcalf Attending Provider Austyn MAYA, Dr. Metcalf Referring Provider Austyn MAYA, Dr. Metcalf Other Provider Beam REEL CUTTER-C, Zebulun Referring Provider Tin REEL CUTTER-C, Ginette E Attending Provider Dr. Jorge Curtis DO Attending Provider Dr. Jorge Curtis DO Referring Provider Alison REEL CUTTER-C, Radha Attending Provider Alison REEL CUTTER-C, Radha Referring Provider Beam REEL CUTTER-C, Zebulun Primary Care Provider Dr. Tea Zaman MD Attending Provider Dr. Tea Zaman MD Referring Provider Beam REEL CUTTER-C, Zebulun Primary Care Provider Beam REEL CUTTER-C, Zebulun Referring Provider Dr. Tea Zaman MD Attending Provider Alison REEL CUTTER-C, Radha Referring Provider Beam REEL CUTTER-C, Zebulun Primary Care Provider Beam REEL CUTTER-C, Zebulun Referring Provider Austyn MAYA, Dr. Metcalf Attending Provider Dr. Rolan Hoover MD Attending Provider [phone] Beam VSC, Zebulun Attending Unavailable Beam VSC, Zebulun Primary Care Unavailable Beam VSC, Zebulun Primary Care Unavailable Jorge Curtis Attending Unavailable Jorge Curtis Referring Unavailable Beam VSC, Zebulun Primary Care Unavailable Jorge Curtis Attending Unavailable Jorge Curtis Referring Unavailable Beam VSC, Zebulun Attending Unavailable Beam VSC, Zebulun Referring Unavailable Beckett, Jersey Primary Care Unavailable Beam VSC, Zebulun Referring Unavailable Beam VSC, Zebulun Attending Unavailable Beam VSC, Zebulun Primary Care Unavailable Beam VSC, Zebulun Primary Care Unavailable Jorge Curtis Attending Unavailable GhazoTea fuller Attending Unavailable GhazoEliana fullera Referring Unavailable Beam VSC, Zebulun Primary Care Unavailable GhazoTea fuller Referring Unavailable GhTea magaña Attending Unavailable Beam VSC, Zebulun Primary Care Unavailable Beam VSC, Zebulun Referring Unavailable GhazoTea fuller Attending Unavailable Beam VSC, Zebulun Primary Care Unavailable Beam VSC, Zebulun Primary Care Unavailable Beam VSC, Zebulun Referring Unavailable Tea Zaman Attending Unavailable Beam VSC, Zebulun Primary Care Unavailable Beam VSC, Zebulun Referring Unavailable GhTea magaña Attending Unavailable Beam VSC, Zebulun Primary Care Unavailable Jorge Curtis Attending Unavailable Jorge Curtis Referring Unavailable Beam VSC, Zebulun Primary Care Unavailable Jorge Curtis Attending Unavailable Jorge Curtis Referring Unavailable Beam VSC, Zebulun Primary Care Unavailable Jorge Curtis Attending Unavailable Jorge Curtis Referring Unavailable Beam VSC, Zebulun Primary Care Unavailable AlisonRdaha sanchez Attending Unavailable Alison, Radha Referring Unavailable Beam VSC, Zebulun Primary Care Unavailable Beam VSC, Zebulun Referring Unavailable GhazoTea fuller Attending Unavailable Beam VSC, Zebulun Primary Care Unavailable Beam VSC, Zebulun Referring Unavailable Tea Zaman Attending Unavailable Beam VSC, Zebulun Primary Care Unavailable Jorge Curtis Attending Unavailable Jorge Curtis Referring Unavailable Tea Zaman Attending Unavailable Jersey Beckett Referring Unavailable Beam VSC, Zebulun Primary Care Unavailable Beam VSC, Zebulun Referring Unavailable DarriusazoEliana fullera Attending Unavailable Beam VSC, Zebulun Primary Care Unavailable Beam VSC, Zebulun Primary Care Unavailable Ghazojonny Tea Referring Unavailable Jorge Curtis Attending Unavailable Beam VSC, Zebulun Primary Care Unavailable Alison Radha Referring Unavailable Alison Radha Attending Unavailable Beam VSC, Zebulun Primary Care Unavailable Beam VSC, Zebulun Referring Unavailable GhazoEliana fullera Attending Unavailable Beam VSC, Zebulun Primary Care Unavailable Rolan Hoover Attending Unavailable Rolan Hoover Referring Unavailable Beam VSC, Zebulun Primary Care Unavailable Jorge Curtis Attending Unavailable Jorge Curtis Referring Unavailable Ghazoul, Tea Consulting Unavailable GhazoJackmanesa Referring Unavailable Eliana Zamana Attending Unavailable Beam VSC, Zebulun Primary Care Unavailable Eliana Zamana Attending Unavailable Ghazoul, Tea Consulting Unavailable Ghazoul, Tea Referring Unavailable Beam VSC, Zebulun Primary Care Unavailable Beam VSC, Zebulun Primary Care Unavailable Jorge Curtis Attending Unavailable Jorge Curtis Referring Unavailable Beam VSC, Zebulun Primary Care Unavailable Jorge Curtis Attending Unavailable Jorge Curtis Referring Unavailable Beam VSC, Zebulun Primary Care Unavailable Tin REEL CUTTER, Ginette Pedersen Attending Unavailabl e Beam VSC, Zebulun Primary Care Unavailable Jorge Curtis Referring Unavailable Jorge Curtis Attending Unavailable Beam VSC, Zebulun Referring Unavailable Beam VSC, Zebulun Primary Care Unavailable Eliana Zamana Attending Unavailable Beam VSC, Zebulun Primary Care Unavailable Jorge Curtis Referring Unavailable Jorge Curtis Attending Unavailable Beam VSC, Zebulun Primary Care Unavailable Jorge Curtis Attending Unavailable Jorge Curtis Referring Unavailable Beam VSC, Zebulun Referring Unavailable Beam VSC, Zebulun Primary Care Unavailable Eliana Zamana Attending Unavailable Beam VSC, Zebulun Primary Care Unavailable Jorge Curtis Referring Unavailable Jorge Curtis Attending Unavailable Beam VS, Zebulun Referring Unavailable Beam VS, Zebulun Primary Care Unavailable Jorge Curtis Attending Unavailable Beam VS, Zebulun Primary Care Unavailable Jorge Curtis Attending Unavailable Jorge Curtis Referring Unavailable Beam VSC, Zebulun Referring Unavailable Beam VS, Zebulun Primary Care Unavailable Rolan Hoover Attending Unavailable Beam VS, Zebulun Referring Unavailable Jorge Curtis Attending Unavailable Beam VS, Zebun Primary Care Unavailable Jersey Beckett Referring Unavailable Jersey Beckett Primary Care Unavailable Tea Zaman Attending Unavailable Medications Current Medications Medication Drug Class(es) Dates Sig (Normalized) Sig (Original) lisinopril 20 mg oral tablet (12 sources) Angiotensin Converting Enzyme Inhibitor Start: 08-14-2024 take 1 tablet by mouth once daily Lisinopril 20 mg tablet Active 20 mg PO daily August 14, 2024 1:00am Start: 06-19-2024 End: 08-14-2024 take 2 tablets by mouth once daily Lisinopril 10 mg tablet Discontinued 20 mg PO DAILY June 19, 2024 1:00am August 14, 2024 10:47am silver sulfADIAZINE 10 mg/ml topical cream (6 sources) Sulfonamide Antibacterial Start: 08-14-2024 Silver Sulfadiazine (Silvadene) 1 % cream Active 1 NMA TOPICAL DAILY 20 August 14, 2024 1:00am apply a thin layer once a day as directed to the affected site Completed/Discontinued Medications Medication Drug Class(es) Dates Sig (Normalized) Sig (Original) cephalexin 500 mg oral capsule (12 sources) Cephalosporin Antibacterial Start: 08-02-2024 End: 08-14-2024 take 1 capsule by mouth twice daily Cephalexin 500 mg capsule Discontinued 500 mg PO TWICE A DAY 14 7 0 August 02, 2024 1:00am August 14, 2024 10:47am Start: 06-29-2024 End: 07-17-2024 take 1 capsule by mouth twice daily Cephalexin 500 mg capsule Discontinued 500 mg PO TWICE A DAY 14 7 0 June 29, 2024 1:00am July 17, 2024 4:49pm Problems Active Problems Problem Classification Problem Date Documented Date Episodic/Chronic Coronary atherosclerosis and other heart disease (20 sources) Calcification of coronary artery; Translations: [Atherosclerotic heart disease of marshall coronary artery without angina pectoris] Onset: 01-09-2025 11-07-2024 Chronic Essential hypertension (5 sources) Hypertensive disorder; Translations: [Essential (primary) hypertension] Onset: 01-09-2025 12-06-2024 Chronic Comment on above: just diagnosed and s tarted med 06/20/24 Other connective tissue disease (3 sources) H/O: back problem; Translations: [Personal history of other diseases of the musculoskeletal system and connective tissue] 12-06-2024 Episodic Other ear and sense organ disorders (3 sources) Hearing loss; Translations: [Unspecified hearing loss, unspecified ear] 12-06-2024 Chronic Other injuries and conditions due to external causes (18 sources) Delayed healing of wound; Translations: [Other injury of unspecified body region, subsequent encounter] 08-21-2024 Episodic Other non-epithelial cancer of skin (20 sources) Squamous cell carcinoma of skin of face; Translations: [Squamous cell carcinoma of skin of nose] Onset: 12-05-2024 07-03-2024 Episodic Other screening for suspected conditions (not mental disorders or infectious disease) (13 sources) Patient encounter status; Translations: [Encounter for screening for malignant neoplasm of respiratory organs] Onset: 12-10-2024 11-06-2024 Episodic Other skin disorders (6 sources) Epidermoid cyst; Translations: [Epidermal cyst] 07-03-2024 Episodic Other skin disorders (6 sources) Sebaceous cyst of skin; Translations: [Sebaceous cyst] 06-05-2024 Episodic Substance-related disorders (20 sources) Nicotine dependence; Translations: [Nicotine dependence, unspecified, uncomplicated] Onset: 10-17-2024 08-21-2024 Chronic Unclassified (6 sources) C44.321 - Squamous cell carcinoma of skin of nose Unclassified (6 sources) I25.10 - Atherosclerotic heart disease of marshall coronary artery without angina pectoris Unclassified (2 sources) Squamous cell cancer of skin of nose Past or Other Problems Problem Classification Problem Date Documented Da te Episodic/Chronic Neoplasms of unspecified nature or uncertain behavior (14 sources) Neoplasm of uncertain behavior of skin of upper limb; Translations: [Neoplasm of uncertain behavior of skin] Onset: 07-31-2024 06-05-2024 Episodic Other skin disorders (1 source) Sebaceous cyst; Translations: [Sebaceous cyst] Onset: 07-31-2024 Episodic Results Test Name Value Interpretation Reference Range Facility Radiation Oncology Visiton 0 01-14-2025 Radiation Oncology Visit [facility] [place] [address] OFFICE VISIT Date of Service: 01/14/25 0854 MR#: [id number] Acct: [id number] Name: MIGUEL LOVE Rep #: [id number] : 1960 From: Jorge Curtis Age/Sex: 64/M Location: [facility] Status: Signed Intake Vital Signs 12/12/24 09:09 01/09/25 08:54 01/14/25 08:56 Height 5 ft 9 in 5 ft 9 in 5 ft 9 in Weight: 144 lb 3 oz 143 lb 142 lb 1 oz BMI 21.2 21.1 20.9 BP 145/80 H 119/77 102/69 Blood Pressure Location Lt brachial Lt brachial Rt brachial Position Sitting Sitting Sitting Respiration 16 16 18 Pulse 70 72 87 Pulse Source Monitor Monitor Monitor Temp 98.6 F 97.8 F Temperature Source Temporal Artery Temporal Artery Pulse Oximetry (%) 97 97 Oxygen Delivery Method room air room air Intake Visit Reasons: 1 MONTH F/U POST RT Is patient in pain?: No Allergies No Known Allergies Allergy (Verified 01/14/25 08:57) Medications ???Medication ???Instructions ???Recorded ???Confirmed ???Type lisinopril 20 mg tablet 20 mg PO QDAY 08/14/24 01/14/25 Hi story silver sulfadiazine 1 % topical 1 applic topical DAILY #20 grams 0 08/14/24 01/14/25 Rx cream (Silvadene) Have you fallen in the past year?: No PFSH PFSH Medical History Atherosclerosis of coronary artery of marshall heart without angina pectoris Coronary artery calcification Tobacco use disorder, continuous Loss of hearing Hypertension History of back problems Home Medications ???Medication ???Instructions ???Recorded ???Last Taken ???Type lisinopril 20 mg tablet 20 mg PO QDAY 08/14/24 Unknown His tory silver sulfadiazine 1 % topical 1 applic topical DAILY #20 grams 0 08/14/24 Unknown Rx cream (Silvadene) Allergy/AdvReac Type Severity Reaction Status Date / Time No Known Allergies Allergy Verified 01/14/25 08:57 Family History Father Cancer Mother Bowel disease Surgical History History of excision of mass History of inguinal hernia repair History of cataract extraction with lens replacement ( 2021) Social History Smoking Status: Current every day smoker tobacco type: cigarettes Tobacco: How many years used: 50 alcohol intake: current alcohol intake frequency: holidays/special occasions only substance use type: does not use additional social history: pt denies aspirin and ibuprofen use, pt denies vaping, denies marijuana use, denies edibles. 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 From 10/29/2024 ??? 12/14/2024 he completed adjuvant radiation. History of Present Illness: 06/29/2024: Patient completed shave biopsy of a dorsum of the nose lesion.??? Pathology was consistent with invasive well to moderately differentiated squamous cell carcinoma, tumor measures about 7 x 2 mm and is present at the deep margin.??? No LVSI or PNI is noted. 08/02/2024: Patient underwent excision of the dorsum nose lesion, disease was present at the deep margin and 4 consecutive additional margins were obtained with the final 1 being negative on frozen but positive on final report. From 10/29/2024 ??? 12/14/2024: received adjuvant radiation therapy to the postop bed on the nose consisting of 6600 cGy delivered in 33 fractions using a .decimal bolus. He was treated using a 3D conformal treatment plan. Radiation Treatment History: 1) From 10/29/2024 ??? 12/14/2024: received adjuvant radiation therapy to the postop bed on the nose consisting of 6600 cGy delivered in 33 fractions using a .decimal bolus. He was treated using a 3D conformal treatment plan. Interval History: Patient presents for follow-up approximately 1 month after completing adjuvant radiation therapy to his nose. He reports doing well overall. The skin irritation has resolved, he denies tanning or peeling. He denies any pain. He does have some increased eye watering and itchiness and also increased drainage in his nose. He denies having any new skin lesions. He denies any changes in vision. He denies having nosebleeds but does have some increased crustiness at times especially in the morning. He denies taste changes or any dental concerns. Energy level has improved. He completes all ADLs though is difficult due to the 3 other problems or concerns at this time. Review of Systems: A 12-point review of systems was completed and was negative except for what is noted in the HPI/Interval History and by the nurse. Physical Exam: Weight: 142 lbs 1 oz (more content not included)... Normal [facility] Cardiology Visit Reporton Cardiology Visit Report [facility] [address] [place] [address] OFFICE VISIT Date of Service: 01/09/25 MR#: [id number] Acct: [id number] Name: MIGUEL LOVE Rep #: [id number] : 1960 Provider: Dr. Rolan Hoover MD Age/Sex: 64/M Location: [facility] Status: Signed HPI HPI History of Present Illness Details: Pleasant 64-year-old man with a history of tobacco use who underwent a low-dose CT scan was noted to have coronary calcifications as well as aortic annular calcification. He was therefore sent for us to have an evaluation. He denies any chest pain or shortness of breath or paroxysmal nocturnal dyspnea pedal edema he has had no neck arm or jaw discomfort suggest angina. He has been compliant with his medications. He does have some shortness of breath with exertion. His physical exam is unremarkable his electrocardiogram demonstrates sinus rhythm with a rate of 69 bpm and no acute changes his lipid profile demonstrates a total cholesterol 193 HDL of 75 LDL of 103 Intake Vital Signs 11/21/24 08:43 12/12/24 09:09 01/09/25 08:54 Height 5 ft 9 in 5 ft 9 in 5 ft 9 in Weight: 144 lb 3 oz 143 lb BMI 21.2 21.1 BP 145/80 H 119/77 Blood Pressure Location Lt brachial Lt brachial Position Sitting Sitting Respiration 16 16 Pulse 70 72 Pulse Source Monitor Monitor Temp 98.6 F Temperature Source Temporal Artery Pulse Oximetry (%) 97 Oxygen Delivery Method room air Intake Visit Reasons: CORONARY CALCIFICATIONS (ALISON) Systems Consultant Required: No Accompanied by: Self Is patient in pain?: No Allergies No Known Allergies Allergy (Verified 01/09/25 08:59) Medications ???Medication ???Instructions ???Recorded ???Confirmed ???Type lisinopril 20 mg tablet 20 mg PO QDAY 08/14/24 01/09/25 Hi story silver sulfadiazine 1 % topical 1 applic topical DAILY #20 grams 0 08/14/24 01/09/25 Rx cream (Silvadene) Have you fallen in the past year?: No PFSH Medical History Atherosclerosis of coronary artery of marshall heart without angina pectoris Coronary artery calcification Tobacco use disorder, continuous Loss of hearing Hypertension History of back problems Surgical History History of excision of mass History of inguinal hernia repair History of cataract extraction with lens replacement ( 2021) Family History Father Cancer Mother Bowel disease Social History Smoking Status: Current every day smoker tobacco type: cigarettes Tobacco: How many years used: 50 alcohol intake: current alcohol intake frequency: holidays/special occasions only substance use type: does not use additional social history: pt denies aspirin and ibuprofen use, pt denies vaping, denies marijuana use, denies edibles. ROS Const Const: Negative for fatigue, weakness, headache(s), daytime sleepiness or difficulty sleeping ENT ENT: Negative for headache(s), dizziness or Nosebleed/epistaxis Cardio Chest Pain: No Palpitations: No Edema: None Resp Respiratory: Negative for SOB with activity, SOB at rest, SOB orthopnea SOB lying down or Cough GI GI: Negative nausea, vomiting or heartburn Neuro Neuro: Negative for dizziness, lightheadedness, near syncope, headache(s) or weakness Endo Endo: Negative for fatigue Cardiology Exam Const Appearance: cooperative, healthy appearing, no acute distress, well developed and well groomed Nutritional Appearance: average body habitus and well nourished Orientation: alert, awake and oriented x3 Head Head: normal to inspection, normocephalic and atraumatic Ears: hearing grossly normal bilaterally and external ears normal Nose: external nose normal, nares normal, nasal mucous membranes and turbinates normal, septum normal and no nasal discharge Face and Sinus: face symmetric Mouth: oral mucosae normal, tongue normal, oropharynx normal and moist mucous membranes Teeth and gingiva: dentition normal Throat: posterior oropharynx normal, tonsils normal and uvula midline Eyes General: appearance normal, both eyes and all related structures Eyelids: eyelids normal Conjunctivae: conjunctivae normal Pupils: PERRL, normal by confrontation and accommodation normal EOM: EOM intact bilaterally Neck Neck: normal visual inspection, trachea midline and no JVD JVD: +5 Carotids: normal carotid upstroke and bounding pulses Chest Chest inspection: normal inspection of the chest, symmetric chest movement and normal respiratory effort Auscultation: Bilateral: Clear to Auscultation Cardio Palpation: normal PMI Rate: regular rate Rhythm: regular rhythm Hear (more content not included)... Normal [facility] Radiation Oncology Visiton 0 12-12-2024 Radiation Oncology Visit [facility] [address] [place] [id number] OFFICE VISIT Date of Service: 12/12/24906 MR#: [id number] Acct: [id number] Name: MIGUEL LOVE Rep #: [id number] : 1960 From: Jorge Curtis DO Age/Sex: 64/M Location: [facility] Status: Signed Intake Vital Signs 10/17/24 09:04 12/12/24 09:09 Height 5 ft 9 in 5 ft 9 in Weight: 144 lb 3 oz BMI 21.2 BP 145/80 H Blood Pressure Location Lt brachial Position Sitting Respiration 16 Pulse 70 Pulse Source Monitor Temp 98.6 F Temperature Source Temporal Artery Pulse Oximetry (%) 97 Oxygen Delivery Method room air Intake Visit Reasons: OTV Is patient in pain?: No Allergies No Known Allergies Allergy (Verified 12/12/24 09:13) Medications ???Medication ???Instructions ???Recorded ???Confirmed ???Type lisinopril 20 mg tablet 20 mg PO QDAY 08/14/24 12/12/24 Hi story silver sulfadiazine 1 % topical 1 applic topical DAILY #20 grams 0 08/14/24 12/12/24 Rx cream (Silvadene) Have you fallen in the past year?: No PFSH PFSH Medical History Atherosclerosis of coronary artery of marshall heart without angina pectoris Coronary artery calcification Tobacco use disorder, continuous Loss of hearing Hypertension History of back problems Home Medications ???Medication ???Instructions ???Recorded ???Last Taken ???Type lisinopril 20 mg tablet 20 mg PO QDAY 08/14/24 Unknown His tory silver sulfadiazine 1 % topical 1 applic topical DAILY #20 grams 0 08/14/24 Unknown Rx cream (Silvadene) Allergy/AdvReac Type Severity Reaction Status Date / Time No Known Allergies Allergy Verified 12/12/24 09:13 Family History Father Cancer Mother Bowel disease Surgical History History of excision of mass History of inguinal hernia repair History of cataract extraction with lens replacement ( 2021) Social History Smoking Status: Current every day smoker tobacco type: cigarettes Tobacco: How many years used: 50 alcohol intake: current alcohol intake frequency: holidays/special occasions only substance use type: does not use additional social history: pt denies aspirin and ibuprofen use, pt denies vaping, denies marijuana use, denies edibles. 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 Plan: Plan was made to complete adjuvant radiation therapy to the postop bed on the nose consisting of 6600 cGy delivered in 33 fractions using a .decimal bolus. Treatment Data: Treatment Site: nose Current total dose/Total dose planned: 6200 cGy / 6600 cGy Fraction number: Chemotherapy: none Subjective: Pain: 0 / 10 Fatigue: mild Skin: moderate erythema, some dry desquamation, no rash ENT: vision stable, mild conjunctival irritation/tearing some increased nasal congestion, occasional morning nose bleed Objective: Weight: 144 lbs Physical Exam: Gen: NAD Skin: moderate erythema, some dry desquamation, no rash, mild conjunctival erythema Assessment Plan Assessment/Plan (1) Squamous cell carcinoma of nose: PLAN: Plan Assessment: Tolerating treatment well overall.??? I reviewed and approved all treatment associated imaging. Fatigue: mild Skin: grade 2 erythema, Aquaphor, john Eye irritation improved this week, possibly from lotion, planning eye drops prn Plan: Continue treatment as planned.??? Will finish Tuesday I have reviewed potential treatment associated toxicities as well as timing for resolution and management. Reviewed skin care instructions, lotion bid Reviewed Flonase, saline rinses Follow up in one month or sooner if needed. Thank you for allowing me to participate in the management and care of your patient. If I may answer any questions in the interim, please do not hesitate to contact me at any time. Jorge Curtis DO, MS Contact Officer, Department of Radiation Oncology [facility] Coding Level of Care Code Radiation Tx Management x5 Diagnoses Squamous cell carcinoma of nose C44.321 12/12/24 0926 Date Jorge Cordoba Signature: Date (if applicable) CC: Normal [facility] Radiation Oncology Visiton 0 12-10-2024 Radiation Oncology Visit [facility] 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 Oncologic History: 06/29/2024: Patient completed shave biopsy of a dorsum of the nose lesion.??? Pathology was consistent with invasive well to moderately differentiated squamous cell carcinoma, tumor measures about 7 x 2 mm and is present at the deep margin.??? No LVSI or PNI is noted. 08/02/2024: Patient underwent excision of the dorsum nose lesion, disease was present at the deep margin and 4 consecutive additional margins were obtained with the final 1 being negative on frozen but positive on final report. Radiation Treatment History: None The patient completed a course of external beam radiotherapy in our department. This treatment was delivered for curative intent. Treatment was given according to the following parameters: MIGUEL LOVE received adjuvant radiation therapy to the postop bed on the nose consisting of 6600 cGy delivered in 33 fractions using a .decimal bolus. He was treated using a 3D conformal treatment plan. The patient did not receive concurrent chemotherapy. Date of First Treatment: 10/29/2024 Date of Last Treatment: 12/14/2024 Total Elapsed Days (including weekend and holidays): 46 Missed Treatments: none Response and Tolerance: The patient tolerated this course of radiotherapy well overall. The following radiation related toxicities developed during the course of radiation therapy: * Grade 2-3 skin erythema with dry desquamation * Grade 1 fatigue Total weight change during therapy: N/A Disposition: The patient tolerated the planned course of radiation therapy well without unexpected toxicity in an appropriate time course. I reviewed management of potential toxicities and discussed expected timing for toxicity resolution. I will have MIGUEL follow-up in one month for a routine visit. MIGUEL will maintain follow up with all other providers. MIGUEL was instructed to call with any further questions or concerns in the interim. If we can provide any further information on this patient's course of care, please do not hesitate to ask. We would like to thank you very much for allowing us to participate in the care of this patient. Sincerely, Jorge Curtis DO, MS Contact Officer, Department of Radiation Oncology [facility] 12/24/24 0851 Date Jorge Curtis DO Cosigner Signature: Date (if applicable) CC: Dr. Tea Zaman MD; [facility] REEL CUTTER-C Beam Normal [facility] Radiation Oncology Visiton 0 12-05-2024 Radiation Oncology Visit [facility] [address] [address] OFFICE VISIT Date of Service: 12/05/24910 MR#: [id number] Acct: [id number] Name: MIGUEL LOVE Rep #: [id number] : 1960 From: Jorge Curtis DO Age/Sex: 64/M Location: [facility] [place] Status: Signed Intake Vital Signs 10/17/24 09:04 12/05/24 09:12 Height 5 ft 9 in 5 ft 9 in Weight: 144 lb BMI 21.2 BP 128/79 H Blood Pressure Location Lt brachial Position Sitting Respiration 16 Pulse 69 Pulse Source Monitor Temp 98.4 F Temperature Source Temporal Artery Pulse Oximetry (%) 98 Oxygen Delivery Method room air Intake Visit Reasons: OTV Is patient in pain?: No Allergies No Known Allergies Allergy (Verified 12/05/24 09:13) Medications ???Medication ???Instructions ???Recorded ???Confirmed ???Type lisinopril 20 mg tablet 20 mg PO QDAY 08/14/24 12/05/24 Hi story silver sulfadiazine 1 % topical 1 applic topical DAILY #20 grams 0 08/14/24 12/05/24 Rx cream (Silvadene) Have you fallen in the past year?: No PFSH PFSH Medical History Coronary artery calcification Tobacco use disorder, continuous Encounter for screening for malignant neoplasm of lung Loss of hearing Wears glasses Smoker Hypertension History of hearing problem History of back problems Home Medications ???Medication ???Instructions ???Recorded ???Last Taken ???Type lisinopril 20 mg tablet 20 mg PO QDAY 08/14/24 Unknown His tory silver sulfadiazine 1 % topical 1 applic topical DAILY #20 grams 0 08/14/24 Unknown Rx cream (Silvadene) Allergy/AdvReac Type Severity Reaction Status Date / Time No Known Allergies Allergy Verified 12/05/24 09:13 Family History Father Cancer Mother Bowel disease Surgical History History of excision of mass History of inguinal hernia repair History of cataract extraction with lens replacement ( 2021) Social History Smoking Status: Current every day smoker tobacco type: cigarettes Tobacco: How many years used: 50 alcohol intake: current alcohol intake frequency: holidays/special occasions only substance use type: does not use additional social history: pt denies aspirin and ibuprofen use, pt denies vaping, denies marijuana use, denies edibles. 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 Plan: Plan was made to complete adjuvant radiation therapy to the postop bed on the nose consisting of 6600 cGy delivered in 33 fractions using a .decimal bolus. Treatment Data: Treatment Site: nose Current total dose/Total dose planned: 5200 cGy / 6600 cGy Fraction number: Chemotherapy: none Subjective: Pain: 0 / 10 Fatigue: mild Skin: moderate erythema, some dry desquamation, no rash ENT: vision stable, mild conjunctival irritation/tearing some increased nasal congestion, occasional morning nose bleed Objective: Weight: 144 lbs Physical Exam: Gen: NAD Skin: moderate erythema, some dry desquamation, no rash, mild conjunctival erythema Assessment Plan Assessment/Plan (1) Squamous cell carcinoma of nose: PLAN: Plan Assessment: Tolerating treatment well overall.??? I reviewed and approved all treatment associated imaging. Fatigue: mild Skin: grade 2 erythema, Aquaphor, john Eye irritation improved this week, possibly from lotion, planning eye drops prn Plan: Continue treatment as planned.??? I have reviewed potential treatment associated toxicities as well as timing for resolution and management. Reviewed skin care instructions, lotion bid Reviewed Flonase, saline rinses Follow up next week or sooner if needed. Thank you for allowing me to participate in the management and care of your patient. If I may answer any questions in the interim, please do not hesitate to contact me at any time. Jorge Curtis DO, MS Contact Officer, Department of Radiation Oncology [facility] Coding Level of Care Code Radiation Tx Management x5 Diagnoses Squamous cell carcinoma of nose C44.321 12/05/24 0934 Date Jorge Curtis DO Cosign Signature: Date (if applicable) CC: Normal [facility] Radiation Oncology Visiton 0 11-28-2024 Radiation Oncology Visit [facility] Care [address] [place], [place] [address] [address] OFFICE VISIT Date of Service: 11/28/24 0851 MR#: [id number] Acct: [id number] Name: MIGUEL LOVE Rep #: [id number] : 1960 From: Jorge Curtis DO Age/Sex: 64/M Location: [facility] [place] Status: Signed Intake Vital Signs 10/17/24 09:04 11/28/24 08:52 Height 5 ft 9 in 5 ft 9 in Weight: 145 lb 2 oz BMI 21.4 BP 129/77 H Blood Pressure Location Lt brachial Position Sitting Respiration 16 Pulse 70 Pulse Source Monitor Temp 98.1 F Temperature Source Temporal Artery Pulse Oximetry (%) 99 Oxygen Delivery Method room air Intake Visit Reasons: OTV Is patient in pain?: No Allergies No Known Allergies Allergy (Verified 11/28/24 08:53) Medications ???Medication ???Instructions ???Recorded ???Confirmed ???Type lisinopril 20 mg tablet 20 mg PO QDAY 08/14/24 11/28/24 Hi story silver sulfadiazine 1 % topical 1 applic topical DAILY #20 grams 0 08/14/24 11/28/24 Rx cream (Silvadene) Have you fallen in the past year?: No PFSH PFSH Medical History Coronary artery calcification Tobacco use disorder, continuous Encounter for screening for malignant neoplasm of lung Loss of hearing Wears glasses Smoker Hypertension History of hearing problem History of back problems Home Medications ???Medication ???Instructions ???Recorded ???Last Taken ???Type lisinopril 20 mg tablet 20 mg PO QDAY 08/14/24 Unknown His tory silver sulfadiazine 1 % topical 1 applic topical DAILY #20 grams 0 08/14/24 Unknown Rx cream (Silvadene) Allergy/AdvReac Type Severity Reaction Status Date / Time No Known Allergies Allergy Verified 11/28/24 08:53 Family History Father Cancer Mother Bowel disease Surgical History History of excision of mass History of inguinal hernia repair History of cataract extraction with lens replacement ( 2021) Social History Smoking Status: Current every day smoker tobacco type: cigarettes Tobacco: How many years used: 50 alcohol intake: current alcohol intake frequency: holidays/special occasions only substance use type: does not use additional social history: pt denies aspirin and ibuprofen use, pt denies vaping, denies marijuana use, denies edibles. 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 Plan: Plan was made to complete adjuvant radiation therapy to the postop bed on the nose consisting of 6600 cGy delivered in 33 fractions using a .decimal bolus. Treatment Data: Treatment Site: nose Current total dose/Total dose planned: 4400 cGy / 6600 cGy Fraction number: Chemotherapy: none Subjective: Pain: 0 / 10 Fatigue: mild Skin: moderate erythema, some dry desquamation, no rash ENT: vision stable, mild conjunctival irritation/tearing some increased nasal congestion, occasional morning nose bleed Objective: Weight: 145 lbs 2 oz Physical Exam: Gen: NAD Skin: moderate erythema, some dry desquamation, no rash, mild conjunctival erythema Assessment Plan Assessment/Plan (1) Squamous cell carcinoma of nose: PLAN: Plan Assessment: Tolerating treatment well overall.??? I reviewed and approved all treatment associated imaging. Fatigue: mild Skin: grade 2 erythema, Aquaphor, john Eye irritation, possibly from lotion, planning eye drops prn Plan: Continue treatment as planned.??? I have reviewed potential treatment associated toxicities as well as timing for resolution and management. Reviewed skin care instructions, lotion bid Reviewed Flonase, saline rinses Follow up next week or sooner if needed. Thank you for allowing me to participate in the management and care of your patient. If I may answer any questions in the interim, please do not hesitate to contact me at any time. Jorge Curtis DO, MS Contact Officer, Department of Radiation Oncology [facility] Coding Level of Care Code Radiation Tx Management x5 Diagnoses Squamous cell carcinoma of nose C44.321 11/28/24 0917 Date Jorge Snowdenigner Signature: Date (if applicable) CC: Normal [facility] Radiation Oncology Visiton 0 11-21-2024 Radiation Oncology Visit [facility] [place] [address] OFFICE VISIT Date of Service: 11/21/24 0841 MR#: [id number] Acct: [id number] Name: MIGUEL LOVE Rep #: [id number] : 1960 From: Jorge Curtis DO Age/Sex: 64/M Location: [facility] [place] Status: Signed Intake Vital Signs 10/17/24 09:04 11/21/24 08:43 Height 5 ft 9 in 5 ft 9 in Weight: 143 lb 1 oz BMI 21.1 BP 151/79 H Blood Pressure Location Lt brachial Position Sitting Respiration 16 Pulse 81 Pulse Source Monitor Temp 98.6 F Temperature Source Temporal Artery Pulse Oximetry (%) 100 Oxygen Delivery Method room air Intake Visit Reasons: OTV Is patient in pain?: No Allergies No Known Allergies Allergy (Verified 11/21/24 08:45) Medications ???Medication ???Instructions ???Recorded ???Confirmed ???Type lisinopril 20 mg tablet 20 mg PO QDAY 08/14/24 11/21/24 Hi story silver sulfadiazine 1 % topical 1 applic topical DAILY #20 grams 0 08/14/24 11/21/24 Rx cream (Silvadene) Have you fallen in the past year?: No PFSH PFSH Medical History Coronary artery calcification Tobacco use disorder, continuous Encounter for screening for malignant neoplasm of lung Loss of hearing Wears glasses Smoker Hypertension History of hearing problem History of back problems Home Medications ???Medication ???Instructions ???Recorded ???Last Taken ???Type lisinopril 20 mg tablet 20 mg PO QDAY 08/14/24 Unknown His tory silver sulfadiazine 1 % topical 1 applic topical DAILY #20 grams 0 08/14/24 Unknown Rx cream (Silvadene) Allergy/AdvReac Type Severity Reaction Status Date / Time No Known Allergies Allergy Verified 11/21/24 08:45 Family History Father Cancer Mother Bowel disease Surgical History History of excision of mass History of inguinal hernia repair History of cataract extraction with lens replacement ( 2021) Social History Smoking Status: Current every day smoker tobacco type: cigarettes Tobacco: How many years used: 50 alcohol intake: current alcohol intake frequency: holidays/special occasions only substance use type: does not use additional social history: pt denies aspirin and ibuprofen use, pt denies vaping, denies marijuana use, denies edibles. 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 Plan: Plan was made to complete adjuvant radiation therapy to the postop bed on the nose consisting of 6600 cGy delivered in 33 fractions using a .decimal bolus. Treatment Data: Treatment Site: nose Current total dose/Total dose planned: 3400 cGy / 6600 cGy Fraction number: Chemotherapy: none Subjective: Pain: 0 / 10 Fatigue: mild Skin: moderate erythema, some dry desquamation, no rash ENT: vision stable, mild conjunctival irritation/tearing some increased nasal congestion, occasional morning nose bleed Objective: Weight: 143 lbs 1 oz Physical Exam: Gen: NAD Skin: moderate erythema, some dry desquamation, no rash Assessment Plan Assessment/Plan (1) Squamous cell carcinoma of nose: PLAN: Plan Assessment: Tolerating treatment well overall.??? I reviewed and approved all treatment associated imaging. Fatigue: mild Skin: grade 2 erythema Eye irritation, possibly from lotion, planning eye drops prn Plan: Continue treatment as planned.??? I have reviewed potential treatment associated toxicities as well as timing for resolution and management. Reviewed skin care instructions, lotion bid Reviewed Flonase, saline rinses Follow up next week or sooner if needed. Thank you for allowing me to participate in the management and care of your patient. If I may answer any questions in the interim, please do not hesitate to contact me at any time. Jorge Curtis DO, MS Contact Officer, Department of Radiation Oncology [facility] Coding Level of Care Code Radiation Tx Management x5 Diagnoses Squamous cell carcinoma of nose C44.321 11/21/24 0909 Date Jorge Curtis DO Cosigner Signature: Date (if applicable) CC: Normal [facility] Radiation Oncology Visiton 0 11-14-2024 Radiation Oncology Visit [facility] [address] [place] [address] OFFICE VISIT Date of Service: 11/14/24 0851 MR#: [id number] Acct: [id number] Name: MIGUEL LOVE Rep #: [id number] : 1960 From: Jorge Curtis DO Age/Sex: 64/M Location: [facility] [place] Status: Signed Intake Vital Signs 10/17/24 09:04 11/14/24 08:52 Height 5 ft 9 in 5 ft 9 in Weight: 144 lb 5 oz BMI 21.3 BP 124/77 H Blood Pressure Location Lt brachial Position Sitting Respiration 16 Pulse 71 Pulse Source Monitor Temp 98.7 F Temperature Source Temporal Artery Pulse Oximetry (%) 99 Oxygen Delivery Method room air Intake Visit Reasons: OTV Is patient in pain?: No Allergies No Known Allergies Allergy (Verified 11/14/24 08:53) Medications ???Medication ???Instructions ???Recorded ???Confirmed ???Type lisinopril 20 mg tablet 20 mg PO QDAY 08/14/24 11/14/24 Hi story silver sulfadiazine 1 % topical 1 applic topical DAILY #20 grams 0 08/14/24 11/14/24 Rx cream (Silvadene) Have you fallen in the past year?: No PFSH PFSH Medical History Coronary artery calcification Tobacco use disorder, continuous Encounter for screening for malignant neoplasm of lung Loss of hearing Wears glasses Smoker Hypertension History of hearing problem History of back problems Home Medications ???Medication ???Instructions ???Recorded ???Last Taken ???Type lisinopril 20 mg tablet 20 mg PO QDAY 08/14/24 Unknown His tory silver sulfadiazine 1 % topical 1 applic topical DAILY #20 grams 0 08/14/24 Unknown Rx cream (Silvadene) Allergy/AdvReac Type Severity Reaction Status Date / Time No Known Allergies Allergy Verified 11/14/24 08:53 Family History Father Cancer Mother Bowel disease Surgical History History of excision of mass History of inguinal hernia repair History of cataract extraction with lens replacement ( 2021) Social History Smoking Status: Current every day smoker tobacco type: cigarettes Tobacco: How many years used: 50 alcohol intake: current alcohol intake frequency: holidays/special occasions only substance use type: does not use additional social history: pt denies aspirin and ibuprofen use, pt denies vaping, denies marijuana use, denies edibles. 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 Plan: Plan was made to complete adjuvant radiation therapy to the postop bed on the nose consisting of 6600 cGy delivered in 33 fractions using a .decimal bolus. Treatment Data: Treatment Site: nose Current total dose/Total dose planned: 2400 cGy / 6600 cGy Fraction number: Chemotherapy: none Subjective: Pain: 0 / 10 Fatigue: mild Skin: mild erythema, no rash or desquamation some increased nasal congestion, two small nose bleeds Objective: Weight: 144 lbs 5 oz Physical Exam: Gen: NAD Skin: mild erythema, no rash or desquamation Assessment Plan Assessment/Plan (1) Squamous cell carcinoma of nose: PLAN: Plan Assessment: Tolerating treatment well overall.??? I reviewed and approved all treatment associated imaging. Fatigue: mild Skin: grade 1-2 erythema Plan: Continue treatment as planned.??? I have reviewed potential treatment associated toxicities as well as timing for resolution and management. Reviewed skin care instructions, lotion bid Reviewed Flonase, saline rinses Follow up next week or sooner if needed. Thank you for allowing me to participate in the management and care of your patient. If I may answer any questions in the interim, please do not hesitate to contact me at any time. Jorge Curtis DO, MS Contact Officer, Department of Radiation Oncology [facility] Coding Level of Care Code Radiation Tx Management x5 Diagnoses Squamous cell carcinoma of nose C44.321 11/14/24 1007 Date Jorge Curtis DO [facility] Signature: Date (if applicable) CC: Normal [facility] Radiation Oncology Visiton 0 11-07-2024 Radiation Oncology Visit [facility] [address] [place] [address] OFFICE VISIT Date of Service: 11/07/24 0850 MR#: [id number] Acct: [id number] Name: MIGUEL LOVE Rep #: [id number] : 1960 From: Jorge Curtis DO Age/Sex: 64/M Location: [facility] [place] Status: Signed Intake Vital Signs 10/17/24 09:04 11/07/24 08:51 Height 5 ft 9 in 5 ft 9 in Weight: 143 lb 8 oz BMI 21.2 BP 125/71 H Blood Pressure Location Lt brachial Position Sitting Respiration 16 Pulse 77 Pulse Source Monitor Temp 98.5 F Temperature Source Temporal Artery Pulse Oximetry (%) 99 Oxygen Delivery Method room air Intake Visit Reasons: OTV Is patient in pain?: No Allergies No Known Allergies Allergy (Verified 11/07/24 08:52) Medications ???Medication ???Instructions ???Recorded ???Confirmed ???Type lisinopril 20 mg tablet 20 mg PO QDAY 08/14/24 11/07/24 Hi story silver sulfadiazine 1 % topical 1 applic topical DAILY #20 grams 0 08/14/24 11/07/24 Rx cream (Silvadene) Have you fallen in the past year?: No PFSH PFSH Medical History Tobacco use disorder, continuous Encounter for screening for malignant neoplasm of lung Loss of hearing Wears glasses Smoker Hypertension History of hearing problem History of back problems Home Medications ???Medication ???Instructions ???Recorded ???Last Taken ???Type lisinopril 20 mg tablet 20 mg PO QDAY 08/14/24 Unknown His tory silver sulfadiazine 1 % topical 1 applic topical DAILY #20 grams 0 08/14/24 Unknown Rx cream (Silvadene) Allergy/AdvReac Type Severity Reaction Status Date / Time No Known Allergies Allergy Verified 11/07/24 08:52 Family History Father Cancer Mother Bowel disease Surgical History History of excision of mass History of inguinal hernia repair History of cataract extraction with lens replacement ( 2021) Social History Smoking Status: Current every day smoker tobacco type: cigarettes Tobacco: How many years used: 50 alcohol intake: current alcohol intake frequency: holidays/special occasions only substance use type: does not use additional social history: pt denies aspirin and ibuprofen use, pt denies vaping, denies marijuana use, denies edibles. 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 Plan: Plan was made to complete adjuvant radiation therapy to the postop bed on the nose consisting of 6600 cGy delivered in 33 fractions using a .decimal bolus. Treatment Data: Treatment Site: nose Current total dose/Total dose planned: 1400 cGy / 6600 cGy Fraction number: Chemotherapy: none Subjective: Pain: 0 / 10 Fatigue: mild Skin: mild erythema, no rash or desquamation Objective: Weight: 143 lbs 8 oz Physical Exam: Gen: NAD Skin: mild erythema, no rash or desquamation Assessment Plan Assessment/Plan (1) Squamous cell carcinoma of nose: PLAN: Plan Assessment: Tolerating treatment well overall.??? I reviewed and approved all treatment associated imaging. Fatigue: mild Skin: grade 1 erythema Plan: Continue treatment as planned.??? I have reviewed potential treatment associated toxicities as well as timing for resolution and management. Reviewed skin care instructions, lotion bid Follow up next week or sooner if needed. Thank you for allowing me to participate in the management and care of your patient. If I may answer any questions in the interim, please do not hesitate to contact me at any time. Jorge Curtis DO, MS Contact Officer, Department of Radiation Oncology [facility] Coding Level of Care Code Radiation Tx Management x5 Diagnoses Squamous cell carcinoma of nose C44.321 11/07/24 0903 Date Jorge Curtis DO Cosign Signature: Date (if applicable) CC: Normal [facility] Low Dose CT Lung Screeningon 11-06-[address] Lung Screening [facility] Imaging Services [address] [place] [address] Lung Screening MR#: [id number] Acct: [id number] Name: MIGUEL LOVE Rep #: [id number] : 1960 M 64 From: Michael Mota MD PCP: Luis De La RosaC REEL CUTTERYohanC Status: REG CLI Study: Low Dose CT Lung Screening Date of Exam: 11/06 Exam# [id number] Ordering Dr: Radha Rsoas NP, NP PROCEDURE: LOW DOSE CT LUNG SCREENING (CTLUNGSCREEN), 11/06/2024 REASON FOR EXAM: LUNG CANCER SCREENING TECHNIQUE: Low dose CT (LDCT) chest was performed without contrast. Multiplanar reformats and MIP reconstructions were generated. RADIATION DOSE SUMMARY: CTDlvol: 1.59 mGy DLP: 55.79 mGycm One or more dose reduction techniques were used (e.g., Automated exposure control, adjustment of the mA and/or kV according to patient size, use of iterative reconstruction technique). COMPARISON: No prior CT or CTA chest FINDINGS: Note that evaluation of the vasculature, anastacia, and soft tissues is limited in the absence of IV contrast. Heart/pericardium:Trace aortic annular calcification. Moderate multivessel coronary atherosclerosis and/or stents.. Aorta: Mild atherosclerosis. Pulmonary arteries: Unremarkable. Lymph nodes: Precarinal node, 10 mm short axis. Lungs/pleura: Trace apical emphysema. Mild biapical pleural/parenchymal scarring.. 2 x 4 mm subpleural LEFT upper lobe micronodule (series 2, image 101). Airways: Unremarkable. Chest wall: Unremarkable. Upper abdomen: Grossly unremarkable. Musculoskeletal: Demineralization suspected. Mild scoliosis may be positional. Presumed bone island within the T11 vertebral body.. CT/Low Dose CT Lung Screening IMPRESSION: 1. Lung-RADS category: 2S (benign appearance or behavior, <1% chance of malignancy); continue annual screening with LDCT. 2. Other clinically significant or potentially significant non-lung cancer findings: Coronary arterial calcification moderate or severe. 3. Borderline minimal mediastinal lymphadenopathy, nonspecific and potentially reactive, however given reported history of malignancy, recommend clinical follow-up. Comparison with any available outside imaging may be helpful to establish stability. 4. Additional description as above. Recommendations per [employer]. Lung CT Screening Reporting and Data System (Lung-RADS) v. 2022 Reading Location: [id number] CC: REEL CUTTERRae Rosas; Luis FREGOSO REEL CUTTER-C [employer]am [employer] Furniture Repairer: Signed Normal [facility] Oncology Visit Reporton 10-10 Oncology Visit Report [facility] [place] [address] OFFICE VISIT Date of Service: 11/06/24 1325 MR#: [id number] Acct: [id number] Name: MIGUEL LOVE Rep #: [id number] : 1960 From: Radha Rosas NP REEL CUTTER -C Age/Sex: 64/M Location: [facility] Status: Signed HPI HPI Reviewed eligibility criteria: 64 year old M with a > 20 pack year smoking history (1 ppd x 48 years) Smoking Status: Current every day smoker Decision Making Engaged in shared decision making visit utilizing a visual aid. Discussed the risks and benefits of lung cancer screening including the total radiation exposure, false positive rate, over diagnosis and potential need for follow-up diagnostic testing all associated with low-dose chest CT. Comorbidities htn ROS Const Denies anorexia, Denies fatigue, Denies headache(s), Denies poor appetite and Denies weight loss ENT Denies headache(s) Card Denies chest pain, Denies dyspnea and Denies palpitations Resp Denies cough, Denies dyspnea, Denies hemoptysis and Denies wheezing GI Reports system reviewed and no additional complaints, except as documented Reports system reviewed and no additional complaints, except as documented Musc Reports system reviewed and no additional complaints, except as documented Skin/Breast Reports system reviewed and no additional complaints, except as documented Neuro Yes system reviewed and no additional complaints, except as documented and No headache(s) Psych Reports system reviewed and no additional complaints, except as documented Endo Reports system reviewed and no additional complaints, except as documented, Denies fatigue and Denies palpitations Andrew/Lymph Reports system reviewed and no additional complaints, except as documented Aller/Immun Denies wheezing Exam Const General: not in acute distress Orientation: alert and oriented x3 HENMT Head: normocephalic and atraumatic Nose: other (erythema (currently receiving radiation therapy) ) Neck Neck: trachea midline, supple and no lymphadenopathy noted Resp Effort Inspection: normal respiratory effort and symmetric chest movement Auscultation: Bilateral: Clear to Auscultation Cardio Rate: regular rate Rhythm: regular rhythm Heart Sounds: S1 normal, S2 normal and no murmurs Psych Affect: normal affect Speech and Movement: speech and movement normal Results Results November 06, [address] Lung Screening IMPRESSION: 1. Lung-RADS category: 2S (benign appearance or behavior, <1% chance of malignancy); continue annual screening with LDCT. 2. Other clinically significant or potentially significant non-lung cancer findings: Coronary arterial calcification moderate or severe. 3. Borderline minimal mediastinal lymphadenopathy, nonspecific and potentially reactive, however given reported history of malignancy, recommend clinical follow-up. Comparison with any available outside imaging may be helpful to establish stability. 4. Additional description as above. Intake Vital Signs 10/17/24 09:04 10/31/24 09:41 11/06/24 13:30 Height 5 ft 9 in 5 ft 9 in 5 ft 9 in Weight: 141 lb 5 oz BMI 20.8 BP 118/80 Blood Pressure Location Lt brachial Position Sitting Respiration 16 Pulse 83 Pulse Source Monitor Temp 97.4 F L Temp Source Temporal Pulse Oximetry (%) 96 Oxygen Delivery Method room air Intake Visit Reasons: Lung Cancer Screening Chief Complaint: nose scc Is patient in pain?: No Allergies No Known Allergies Allergy (Verified 11/07/24 08:52) Medications ???Medication ???Instructions ???Recorded ???Confirmed ???Type lisinopril 20 mg tablet 20 mg PO QDAY 08/14/24 11/07/24 Hi story silver sulfadiazine 1 % topical 1 applic topical DAILY #20 grams 0 08/14/24 11/07/24 Rx cream (Silvadene) Have you fallen in the past year?: No PFSH Medical History (Updated 11/07/24 @ 17:19 by Radha Rosas REEL CUTTER, REEL CUTTER-C) Coronary artery calcification Tobacco use disorder, continuous Encounter for screening for malignant neoplasm of lung Loss of hearing Wears glasses Smoker Hypertension History of hearing problem History of back problems Surgical History History of excision of mass History of inguinal hernia repair History of cataract extraction with lens replacement ( 2021) Family History Father Cancer Mother Bowel disease Social History Smoking Status: Current every day smoker tobacco type: cigarettes Tobacco: How many years used: 50 alcohol intake: current alcohol intake frequency: holidays/special occasions only substance use type: does not use additional social history: pt denies aspirin (more content not included)... Normal [facility] Radiation Oncology Visiton 0 10-31-2024 Radiation Oncology Visit [facility] [address] [place] [address] OFFICE VISIT Date of Service: 10/31/24940 MR#: [id number] Acct: [id number] Name: MIGUEL LOVE Rep #: [id number] : 1960 From: Jorge Curtis DO Age/Sex: 64/M Location: [facility] [place] Status: Signed Intake Vital Signs 10/17/24 09:04 10/31/24 09:41 Height 5 ft 9 in 5 ft 9 in Weight: 142 lb 8 oz BMI 21.0 BP 122/74 H Blood Pressure Location Lt brachial Position Sitting Respiration 16 Pulse 69 Pulse Source Monitor Temp 98.6 F Temperature Source Temporal Artery Pulse Oximetry (%) 97 Oxygen Delivery Method room air Intake Visit Reasons: OTV Is patient in pain?: No Allergies No Known Allergies Allergy (Verified 10/31/24 09:43) Medications ???Medication ???Instructions ???Recorded ???Confirmed ???Type lisinopril 20 mg tablet 20 mg PO QDAY 08/14/24 10/31/24 Hi story silver sulfadiazine 1 % topical 1 applic topical DAILY #20 grams 0 08/14/24 10/31/24 Rx cream (Silvadene) Have you fallen in the past year?: No PFSH PFSH Medical History Loss of hearing Wears glasses Smoker Hypertension History of hearing problem History of back problems Home Medications ???Medication ???Instructions ???Recorded ???Last Taken ???Type lisinopril 20 mg tablet 20 mg PO QDAY 08/14/24 Unknown His tory silver sulfadiazine 1 % topical 1 applic topical DAILY #20 grams 0 08/14/24 Unknown Rx cream (Silvadene) Allergy/AdvReac Type Severity Reaction Status Date / Time No Known Allergies Allergy Verified 10/31/24 09:43 Surgical History History of excision of mass History of inguinal hernia repair History of cataract extraction with lens replacement ( 2021) Social History Smoking Status: Current every day smoker tobacco type: cigarettes alcohol intake: never substance use type: does not use additional social history: pt denies aspirin and ibuprofen use, pt denies vaping, denies marijuana use, denies edibles. 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 Plan: Plan was made to complete adjuvant radiation therapy to the postop bed on the nose consisting of 6600 cGy delivered in 33 fractions using a .decimal bolus. Treatment Data: Treatment Site: nose Current total dose/Total dose planned: 400 cGy / 6600 cGy Fraction number: Chemotherapy: none Subjective: Pain: 0 / 10 Fatigue: mild Skin: no erythema, rash, desquamation Objective: Weight: 142 lbs 8 oz Physical Exam: Gen: NAD Skin: no erythema, rash, desquamation Assessment Plan Assessment/Plan (1) Squamous cell carcinoma of nose: PLAN: Plan Assessment: Tolerating treatment well overall.??? I reviewed and approved all treatment associated imaging. Fatigue: mild Plan: Continue treatment as planned.??? I have reviewed potential treatment associated toxicities as well as timing for resolution and management. Reviewed skin care instructions, lotion bid Follow up next week or sooner if needed. Thank you for allowing me to participate in the management and care of your patient. If I may answer any questions in the interim, please do not hesitate to contact me at any time. Jorge Curtis DO, MS Contact Officer, Department of Radiation Oncology [facility] Coding Level of Care Code Radiation Tx Management x5 Diagnoses Squamous cell carcinoma of nose C44.321 10/31/2454 Date Jorge Snowdengeovanywilmer Signature: Date (if applicable) CC: Normal [facility] Plastic Surgery Visit Report on 10-17-2024 Plastic Surgery Visit Report [facility] Plastic Reconstructive Surgery [address], [address] [place] [address] OFFICE VISIT Date of Service: 10/17/24 MR#: [id number] Acct: [id number] Name: MIGUEL LOVE Rep #: [id number] : 1960 Provider: Dr. Tea fuller MD Age/Sex: 64/M Location: [facility] Status: Signed Intake Vital Signs 09/19/24 09:02 10/08/24 09:00 10/17/24 09:04 Height 5 ft 9 in 5 ft 9 in 5 ft 9 in Weight: 148 lb BMI 21.8 BP 130/82 H Blood Pressure Location Lt brachial Position Sitting Respiration 18 Pulse 79 Temp 97.5 F L Temp Source Temporal Pulse Oximetry (%) 95 Oxygen Delivery Method room air Intake Visit Reasons: 4 w fu Chief Complaint: nose scc Is patient in pain?: No Allergies No Known Allergies Allergy (Verified 10/17/24 09:05) Have you fallen in the past year?: No Nurse's Note: pt here for follow up nose lesion Subjective Details: Mr. Love comes in for recheck of his nose status post excision of an extensive BCC. He states he has been putting Aquaphor on the area daily and massaging it. He is following up with radiation oncology and preparation for eventual radiation. He had been on Chantix but states he discontinued this because it did not curb his craving for nicotine. Objective Details: The wounds on his nose are closed however he has an adherent scar in the supratip area of the nose. I have asked him to continue aggressive massage of the area with pressure. I have encouraged him to continue using the Aquaphor until directed otherwise during his treatment. The cyst site on the right cheek is also healing satisfactorily. Coding Level of Care Code Off vis,est,level 2 Diagnoses Squamous cell carcinoma of nose C44.321 [facility] Medical History Loss of hearing Wears glasses Smoker Hypertension History of hearing problem History of back problems Surgical History History of excision of mass History of inguinal hernia repair History of cataract extraction with lens replacement ( 2021) Social History Smoking Status: Current every day smoker tobacco type: cigarettes alcohol intake: never substance use type: does not use additional social history: pt denies aspirin and ibuprofen use, pt denies vaping, denies marijuana use, denies edibles. Assessment and Plan (No Qualifiers) Assessment and Plan (1) Squamous cell carcinoma of nose: Status: Acute Plan Details Additional Comments: I will see him back as needed. He is encouraged to call with any problems. 10/17/24 1639 Date Tea Berkowitz Signature: Date (if applicable) CC: Normal [facility] Radiation Oncology Visiton 0 10-08-2024 Radiation Oncology Visit [facility] [address] [place] [address] OFFICE VISIT Date of Service: 10/08/24 0857 MR#: [id number] Acct: [id number] Name: MIGUEL LOVE Rep #: [id number] : 1960 From: Jorge Curtis DO Age/Sex: 63/M Location: [facility] Status: Signed Intake Vital Signs 09/19/24 09:02 10/08/24 09:00 Height 5 ft 9 in 5 ft 9 in Weight: 151 lb 6 oz 145 lb 5 oz BMI 22.3 21.4 BP 126/71 H 136/81 H Blood Pressure Location Lt brachial Rt brachial Position Sitting Sitting Respiration 18 16 Pulse 84 81 Pulse Source Monitor Temp 98.6 F 97.4 F L Temperature Source Temporal Artery Pulse Oximetry (%) 96 98 Oxygen Delivery Method room air room air Intake Visit Reasons: SQAMOUS CELL - NOSE Is patient in pain?: No Allergies No Known Allergies Allergy (Verified 10/08/24 09:01) Medications ???Medication ???Instructions ???Recorded ???Confirmed ???Type lisinopril 20 mg tablet 20 mg PO QDAY 08/14/24 10/08/24 Hi story silver sulfadiazine 1 % topical 1 applic topical DAILY #20 grams 0 08/14/24 10/08/24 Rx cream (Silvadene) Have you fallen in the past year?: No PFSH PFSH Medical History Loss of hearing Wears glasses Smoker Hypertension History of hearing problem History of back problems Home Medications ???Medication ???Instructions ???Recorded ???Last Taken ???Type lisinopril 20 mg tablet 20 mg PO QDAY 08/14/24 Unknown His tory silver sulfadiazine 1 % topical 1 applic topical DAILY #20 grams 0 08/14/24 Unknown Rx cream (Silvadene) Allergy/AdvReac Type Severity Reaction Status Date / Time No Known Allergies Allergy Verified 10/08/24 09:01 Surgical History History of excision of mass History of inguinal hernia repair History of cataract extraction with lens replacement ( 2021) Social History Smoking Status: Current every day smoker tobacco type: cigarettes alcohol intake: never substance use type: does not use additional social history: pt denies aspirin and ibuprofen use, pt denies vaping, denies marijuana use, denies edibles. 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 History of Present Illness: 06/29/2024: Patient completed shave biopsy of a dorsum of the nose lesion.??? Pathology was consistent with invasive well to moderately differentiated squamous cell carcinoma, tumor measures about 7 x 2 mm and is present at the deep margin.??? No LVSI or PNI is noted. 08/02/2024: Patient underwent excision of the dorsum nose lesion, disease was present at the deep margin and 4 consecutive additional margins were obtained with the final 1 being negative on frozen but positive on final report. Radiation Treatment History: No prior history of radiation therapy. No pacemaker. No diagnosis of radiosensitizing comorbidity. Interval History: Patient presents for initial consultation. He reports having a lesion on the dorsum of his nose for at least a couple of years, over this time he did not notice it changing very much and it did not cause him any symptoms. Specifically he denies numbness or weakness in his face, bleeding, difficulty breathing/nasal congestion, pain in the nose. He completed surgery about 2 months ago and reports healing fairly well but having some delayed healing. He is a chronic smoker of 1 pack/day for about 30 to 40 years. He denies current nasal symptoms including congestion/difficulty breathing, nosebleeds, pain, weakness/numbness in his face. He denies dry mouth or taste changes and denies any dental concerns. He denies cough, shortness of breath, chest pain, bone pain. He continues to work he denies neck swelling. He reports full range of motion his neck. He believes his vision is normal bilaterally, he did have cataract surgery in 2023 to both eyes. Denies dry eye or double vision. Denies hearing changes. He continues to work and completes all ADLs without any difficulty. He denies having other problems or concerns this time. Review of Systems: A 12-point review of systems was completed and was negative except for what is noted in the HPI/Interval History and by the nurse. Physical Exam: Weight: 145 lbs ECO KARNOFSKY SCORE: 80% CONSTITUTIONAL: Well-developed, well-nourished, and in no apparent distress. HEENT: Mucous membranes moist. No evidence of thrush or lesions within the visualized oropharynx or oral cavity. No trismus. Poor dentition. Pupils are equal, round, and re (more content not included)... Normal [facility] Plastic Surgery Visit Report on 09-19-2024 Plastic Surgery Visit Report [facility] Plastic Reconstructive Surgery [address], [address] [place] [address] OFFICE VISIT Date of Service: 09/19/24 MR#: [id number] Acct: [id number] Name: MIGUEL LOVE Rep #: [id number] : 1960 Provider: Dr. Tea fuller MD Age/Sex: 63/M Location: [facility] Status: Signed Intake Vital Signs 09/05/24 09:50 09/19/24 09:02 Height 5 ft 9 in 5 ft 9 in Weight: 151 lb 2 oz 151 lb 6 oz BMI 22.3 22.3 BP 129/74 H 126/71 H Blood Pressure Location Lt brachial Lt brachial Position Sitting Sitting Respiration 18 18 Pulse 71 84 Temp 98.9 F 98.6 F Temp Source Temporal Temporal Pulse Oximetry (%) 96 96 Oxygen Delivery Method room air room air Intake Visit Reasons: 2 W FU Chief Complaint: post op lesions on cheek, nose Is patient in pain?: No Allergies No Known Allergies Allergy (Verified 09/19/24 09:03) Medications ???Medication ???Instructions ???Recorded ???Confirmed ???Type lisinopril 20 mg tablet 20 mg PO QDAY 08/14/24 09/19/24 Hi story silver sulfadiazine 1 % topical 1 applic topical DAILY #20 grams 0 08/14/24 09/19/24 Rx cream (Silvadene) Have you fallen in the past year?: No Nurse's Note: pt here for post op scc nose, delayed healing , no issues/concerns Subjective Details: Miguel comes in today for recheck of the nose reconstruction following skin cancer excision. He denies any problems. Objective Details: The open wound is closed at this point. Residual scab is debrided. I applied Aquaphor to the entire site and asked him to do the same with massage to help soften the scar and reduce edema. After reviewing the case with Mohs surgeon, he concurred with radiation. The level of the excision extended down to the perichondrium/periosteu m. At this point, now that the wound is healed, I reviewed that because of his positive deep margins on permanent section despite multiple excisions (and frozen section as clear margins), that further treatment is necessary to prevent recurrence. He is in agreement with this. We will consult radiation oncology for evaluation, recommendations, and management. 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 Nicotine dependence F17.200 [facility] Medical History Loss of hearing Wears glasses Smoker Hypertension History of hearing problem History of back problems Surgical History History of excision of mass History of inguinal hernia repair History of cataract extraction with lens replacement ( 2021) Social History Smoking Status: Current every day smoker tobacco type: cigarettes alcohol intake: never substance use type: does not use additional social history: pt denies aspirin and ibuprofen use, pt denies vaping, denies marijuana use, denies edibles. Assessment and Plan (No Qualifiers) Assessment and Plan (1) Squamous cell carcinoma of nose: Status: Acute (2) Nicotine dependence: Status: Acute Plan Details Additional Comments: I will see him back in 4 weeks for recheck We will initiate submission of a consult to radiation oncology 09/19/24 1620 Date Tea Berkowitz Signature: Date (if applicable) CC: Normal [facility] Plastic Surgery Visit Report on 09-05-2024 Plastic Surgery Visit Report [facility] Plastic Reconstructive Surgery [address], [address] [place] [address] OFFICE VISIT Date of Service: 09/05/24 MR#: [id number] Acct: [id number] Name: NADERMIGUEL AASHISH Rep #: [id number] : 1960 Provider: Dr. Tea fuller MD Age/Sex: 63/M Location: [facility] [place] Status: Signed Intake Vital Signs 08/28/24 09:17 09/05/24 09:50 Height 5 ft 9 in 5 ft 9 in Weight: 152 lb 8 oz 151 lb 2 oz BMI 22.5 22.3 BP 139/79 H 129/74 H Blood Pressure Location Lt brachial Lt brachial Position Sitting Sitting Respiration 18 18 Pulse 87 71 Temp 97.3 F L 98.9 F Temp Source Oral Temporal Pulse Oximetry (%) 97 96 Oxygen Delivery Method room air room air Intake Visit Reasons: 1 W FU Chief Complaint: post op lesions on cheek, nose Is patient in pain?: No Allergies No Known Allergies Allergy (Verified 09/05/24 09:50) Medications ???Medication ???Instructions ???Recorded ???Confirmed ???Type lisinopril 20 mg tablet 20 mg PO QDAY 08/14/24 09/05/24 Hi story silver sulfadiazine 1 % topical 1 applic topical DAILY #20 grams 0 08/14/24 09/05/24 Rx cream (Silvadene) Have you fallen in the past year?: No Nurse's Note: pt here for post op nose lesion, no issues Subjective Details: Miguel comes in for recheck of the skin cancer removed from the dorsum of his nose. He denies any problems. He continues to treat that area by keeping it open at night and in the morning dressing it with a Band-Aid for work. Objective Details: The open area is considerably reduced in size. There is no evidence of infection. I cleaned this with peroxide and debrided it with gauze abrasion. I have asked him to continue the same and to discontinue using peroxide twice a day. (I suggested once a day to clean it before applying Silvadene). At this point we can consider further treatment. I indicated I will run this by a Mohs surgeon to get their opinion on Mohs surgery versus radiation. I will see him back in 2 weeks for recheck. Coding Level of Care Code Global Post Op Diagnoses Nicotine dependence F17.200 Squamous cell carcinoma of nose C44.321 Delayed wound healing T14.8XXD [facility] Medical History Loss of hearing Wears glasses Smoker Hypertension History of hearing problem History of back problems Surgical History History of excision of mass History of inguinal hernia repair History of cataract extraction with lens replacement ( 2021) Social History Smoking Status: Current every day smoker tobacco type: cigarettes alcohol intake: never substance use type: does not use additional social history: pt denies aspirin and ibuprofen use, pt denies vaping, denies marijuana use, denies edibles. Assessment and Plan (No Qualifiers) Assessment and Plan (1) Nicotine dependence: Status: Acute (2) Squamous cell carcinoma of nose: Status: Acute (3) Delayed wound healing: Status: Acute Plan Details Additional Comments: Follow-up in 2 weeks. 09/05/24 1639 Date Tea Zaman MD Cosigner Signature: Date (if applicable) CC: Normal [facility] Plastic Surgery Visit Report on 08-28-2024 Plastic Surgery Visit Report [facility] Plastic Reconstructive Surgery [address] [facility], [address] [place] [address] OFFICE VISIT Date of Service: 08/28/24 MR#: [id number] Acct: [id number] Name: MIGUEL LOVE Rep #: [id number] : 1960 Provider: Dr. Tea fuller MD Age/Sex: 63/M Location: [facility] Status: Signed Intake Vital Signs 08/21/24 10:16 08/28/24 09:17 Height 5 ft 9 in 5 ft 9 in Weight: 154 lb 152 lb 8 oz BMI 22.7 22.5 BP 126/73 H 139/79 H Blood Pressure Location Lt brachial Lt brachial Position Sitting Sitting Respiration 18 18 Pulse 83 87 Temp 99.1 F 97.3 F L Temp Source Temporal Oral Pulse Oximetry (%) 95 97 Oxygen Delivery Method room air room air Intake Visit Reasons: 1 W FU Chief Complaint: post op lesions on cheek, nose Is patient in pain?: No Allergies No Known Allergies Allergy (Verified 08/28/24 09:18) Medications ???Medication ???Instructions ???Recorded ???Confirmed ???Type lisinopril 20 mg tablet 20 mg PO QDAY 08/14/24 08/28/24 Hi story silver sulfadiazine 1 % topical 1 applic topical DAILY #20 grams 0 08/14/24 08/28/24 Rx cream (Silvadene) Have you fallen in the past year?: No Nurse's Note: pt here post op bcc on bcc on arm, scc on nose, no issue/concern Subjective Details: Miguel comes in for recheck of the skin cancer of his nose. He denies any problems. He states it appears to be improved. Objective Details: On exam, the open area is smaller. There is a base of granulating tissue. It does have a layer of fibrinous exudate and this was debrided. A thin layer of Silvadene was applied along with a nonstick dressing and tape. I have asked him to continue with the present management including keeping it open at nighttime at home, using the Silvadene, and keeping it covered at work. He also washes the area once a day with peroxide. I will see him back in a week for recheck. I also briefly reviewed that because of our positive margin, we still need to address the potential for residual cancer there. Coding Level of Care Code Global Post Op Diagnoses Delayed wound healing T14.8XXD Nicotine dependence F17.200 Squamous cell carcinoma of nose C44.321 [facility] Medical History Loss of hearing Wears glasses Smoker Hypertension History of hearing problem History of back problems Surgical History History of excision of mass History of inguinal hernia repair History of cataract extraction with lens replacement ( 2021) Social History Smoking Status: Current every day smoker tobacco type: cigarettes alcohol intake: never substance use type: does not use additional social history: pt denies aspirin and ibuprofen use, pt denies vaping, denies marijuana use, denies edibles. Assessment and Plan (No Qualifiers) Assessment and Plan (1) Delayed wound healing: Status: Acute (2) Nicotine dependence: Status: Acute (3) Squamous cell carcinoma of nose: Status: Acute Plan Details Additional Comments: I will see him back in a week for recheck. 08/28/24 1640 Date Tea Zaman MD Cosigner Signature: Date (if applicable) CC: Normal [facility] Plastic Surgery Visit Report on 08-21-2024 Plastic Surgery Visit Report [facility] Plastic Reconstructive Surgery [address], [address] [place] [address] OFFICE VISIT Date of Service: 08/21/24 MR#: [id number] Acct: [id number] Name: MIGUEL LOVE Rep #: [id number] : 1960 Provider: Dr. Tea fuller MD Age/Sex: 63/M Location: [facility] Status: Signed Intake Vital Signs 08/14/24 09:46 08/21/24 10:16 Height 5 ft 9 in 5 ft 9 in Weight: 152 lb 6 oz 154 lb BMI 22.5 22.7 BP 136/76 H 126/73 H Blood Pressure Location Lt brachial Lt brachial Position Sitting Sitting Respiration 18 Pulse 84 83 Temp 97.3 F L 99.1 F Temp Source Oral Temporal Pulse Oximetry (%) 99 95 Oxygen Delivery Method room air room air Intake Visit Reasons: 1 W F/U Chief Complaint: post op lesions on cheek, nose Is patient in pain?: No Allergies No Known Allergies Allergy (Verified 08/21/24 10:17) Medications ???Medication ???Instructions ???Recorded ???Confirmed ???Type lisinopril 20 mg tablet 20 mg PO QDAY 08/14/24 08/21/24 Hi story silver sulfadiazine 1 % topical 1 applic topical DAILY #20 grams 0 08/14/24 08/21/24 Rx cream (Silvadene) Have you fallen in the past year?: No Nurse's Note: pt here for follow up bcc nose no issues/concerns Subjective Details: Mr. Love comes in today for recheck of the skin cancer removed from his nose. He has been applying the Silvadene to the open site. He denies any other problems. Objective Details: The open site on the nose is slowly granulating and improving. This was debrided of fibrinous exudate. The remainder of the incisions were treated with Aquaphor which was massaged in the incision areas. Silvadene was applied to the open area and a nonstick dressing applied. I told him he can leave this open at night. He is to clean it with peroxide before applying the Silvadene. I will see him in a week for recheck. I also indicated before we can consider further treatment, he has have a closed wound. He is also aware that his smoking contributes to slower wound healing. I will see him in a week for recheck. 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 Nicotine dependence F17.200 Delayed wound healing T14.8XXD [facility] Medical History Loss of hearing Wears glasses Smoker Hypertension History of hearing problem History of back problems Surgical History History of excision of mass History of inguinal hernia repair History of cataract extraction with lens replacement ( 2021) Social History Smoking Status: Current every day smoker tobacco type: cigarettes alcohol intake: never substance use type: does not use additional social history: pt denies aspirin and ibuprofen use, pt denies vaping, denies marijuana use, denies edibles. Assessment and Plan (No Qualifiers) Assessment and Plan (1) Squamous cell carcinoma of nose: Status: Acute (2) Nicotine dependence: Status: Acute (3) Delayed wound healing: Status: Acute Plan Details Additional Comments: He is to follow-up in 1 week. 08/21/24 1612 Date Tea Zaman MD Cosigner Signature: Date (if applicable) CC: Normal [facility] Plastic Surgery Visit Report on 08-14-2024 Plastic Surgery Visit Report [facility] Plastic Reconstructive Surgery [address], [address] [place] [address] OFFICE VISIT Date of Service: 08/14/24 MR#: [id number] Acct: [id number] Name: MIGUEL LOVE Rep #: [id number] : 1960 Provider: Dr. Tea fuller MD Age/Sex: 63/M Location: [facility] Status: Signed Intake Vital Signs 07/17/24 15:48 08/07/24 11:25 08/14/24 09:46 Height 5 ft 10 in 5 ft 9 in 5 ft 9 in Weight: 152 lb 6 oz BMI 22.5 BP 136/76 H Blood Pressure Location Lt brachial Position Sitting Pulse 84 Temp 97.3 F L Temp Source Oral Pulse Oximetry (%) 99 Oxygen Delivery Method room air Intake Visit Reasons: post op Chief Complaint: post op lesions on cheek, nose Is patient in pain?: No Allergies No Known Allergies Allergy (Verified 08/14/24 09:47) Medications ???Medication ???Instructions ???Recorded ???Confirmed ???Type lisinopril 20 mg tablet 20 mg PO QDAY 08/14/24 08/14/24 Hi story silver sulfadiazine 1 % topical 1 applic topical DAILY #20 grams 0 08/14/24 08/14/24 Rx cream (Silvadene) Have you fallen in the past year?: No Nurse's Note: pt here post op lesion on nose, no issues/conerns Subjective Details: Miguel comes in for recheck of the skin cancer removed from his nose on 08/02. He denies any problems. Objective Details: The flaps are healing satisfactorily. Reinforcing sutures are removed. There is a central area of delayed wound healing and possible peripheral flap necrosis over the dorsum of the nose. This was cleaned with peroxide and a thin layer of Silvadene applied. I will have him do the same once a day and I will see him back in a week for recheck of the wound. The patient admits to continuing to smoke 1 pack/day. I did discuss the findings on the permanent sections of the pathology. Despite frozen section revealing clear margins of the right lateral (9:00) margin, the permanent section reveals positive invasive SCC at the deep margin. I discussed with him the need for probable outside consultation for evaluation and management to prevent recurrent SCC. I also discussed the need for a complete dermatologic evaluation in light of 2 sites of skin cancer. (Arm and nose). I will see him back in 1 week for recheck. I have called in a prescription for Silvadene. 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 Assessment and Plan (No Qualifiers) Assessment and Plan (1) Squamous cell carcinoma of nose: Status: Acute Plan Details Additional Comments: I will see him back in 1 week for recheck. 08/14/24 1619 Date Tea Zaman MD Cosigner Signature: Date (if applicable) CC: Normal [facility] Plastic Surgery Visit Report on 08-07-2024 Plastic Surgery Visit Report [facility] Plastic Reconstructive Surgery [address], [address] [place] [address] OFFICE VISIT Date of Service: 08/07/24 MR#: [id number] Acct: [id number] Name: MIGUEL LOVE Rep #: [id number] : 1960 Provider: Dr. Tea fuller MD Age/Sex: 63/M Location: [facility] Status: Signed Intake Vital Signs 08/02/24 06:08 08/07/24 11:25 Height 5 ft 9 in 5 ft 9 in Weight: 154 lb BMI 22.7 BP 155/82 H Blood Pressure Location Lt brachial Position Sitting Respiration 18 Pulse 79 Temp 97.3 F L Temp Source Oral Pulse Oximetry (%) 95 Oxygen Delivery Method room air Intake Visit Reasons: post op Chief Complaint: post op lesions on cheek, nose Is patient in pain?: No (sore/tender) Allergies No Known Allergies Allergy (Verified 08/02/24 06:04) Medications ???Medication ???Instructions ???Recorded ???Confirmed ???Type lisinopril 10 mg tablet 20 mg PO DAILY 06/19/24 08/07/24 History cephalexin 500 mg capsule 500 mg PO BID 7 days #14 caps 08/02/24 08/07/24 Rx Have you fallen in the past year?: No Nurse's Note: pt here post op nose lesion, nose tender/sore no other concerns Subjective Details: Mr. Love comes in for recheck of the skin cancer removed from his nose. He states that the first few days after surgery were rough. He states that sleeping in a recliner is difficult. Objective Details: The Steri-Strips were removed. The incision was cleaned with peroxide. It is well-approximated except in the midline with the tissue is slightly macerated. The area was cleaned with peroxide and Telfa and antibiotic ointment applied and taped in place. I asked him to remove the dressing for showering and pat it with peroxide before reapplying the Telfa, which he is to change daily. Preliminary review of the pathology demonstrates clear margins on the final frozen section however the permanent section is now calling the deep margin positive for invasive squamous cell carcinoma. I will review this with pathology. After which I will discuss with the patient. 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 [facility] Medical History Loss of hearing Wears glasses Smoker Hypertension History of hearing problem History of back problems Surgical History History of excision of mass History of inguinal hernia repair History of cataract extraction with lens replacement ( 2021) Social History Smoking Status: Current every day smoker tobacco type: cigarettes alcohol intake: never substance use type: does not use additional social history: pt denies aspirin and ibuprofen use, pt denies vaping, denies marijuana use, denies edibles. Assessment and Plan (No Qualifiers) Assessment and Plan (1) Squamous cell cancer of skin of nose: Status: Acute Plan Details Additional Comments: Patient to return in 1 week. 08/07/24 1610 Date Tea Zaman MD Cosigner Signature: Date (if applicable) CC: Normal [facility] Discharge Instructionon 07-12 Discharge Instruction [facility] Medical Records Department [address] [place] [address] Instructions for Home/Discharge Instructions 08/02/24 1112 MR#: [id number] Acct: [id number] Name: MIGUEL LOVE Rep #: [id number] : 1960 63 From: Tea Zaman MD PCP: Luis De La Rosa REEL CUTTERRae Status:REG [facility] Discharge Instructions Dressing / Incision Additional Dressing/Incision Instructions:: Keep your back elevated (recliner position) to reduce bleeding and swelling. Avoid bending, lifting, straining to reduce bleeding and swelling. Take the oral antibiotic (Keflex) 2 times a day until finished. Keep the dressing and tape dry?do not remove until seen in the office Follow Up Care Please Follow Up With: Tea Zaman MD When: In 1 week Test Results: Test results from this visit will be discussed in further detail at your follow-up appointment, if applicable. Discharge Plan Admission Attending Provider: Tea Zaman Primary Care Provider: Luis De La Rosa Instructions Print Language: Djiboutian Discharge Orders/Prescriptions Prescriptions: New cephalexin 500 mg capsule 500 mg PO BID 7 Days Qty: 14 0RF No Action lisinopril 10 mg tablet 20 mg PO DAILY Referrals / Follow Up: Luis De La Rosa, REEL CUTTER-C [Primary Care Provider] - Disposition Disposition (needs filled in before D/C Order can be placed): Home, Self Care 08/02/24 1114 Tea Zaman MD CC: Luis De La Rosa Signed Normal [facility] Frozen Section (charge)on Frozen Section (charge) Patient Age/Sex Location Account Attending Physician MIGUEL LOVE 63/M [facility] [id number] Dr. Tea Zaman MD Specimen: [id number] Received: 08/02/24 Status: JANUARY Fung Num: [id number] Spec Type: Lesion Subm Dr: Dr. Tea Zaman MD HEADER OPERATION: Excision squamous cell carcinoma nose with frozen section PRE-OP DIAGNOSIS: Squamous cell carcinoma of skin of nose TISSUE SUBMITTED: A- Squamous cell carcinoma of nose, B- Additional deep margin, C- 2nd additional margin, D- 3rd additional margin, E- 4th additional margin FROZEN SECTION DIAGNOSIS A. Nose lesion, excisional biopsy: Invasive squamous cell carcinoma. Deep margin is positive, other margins are free of tumor. B. Nose lesion, additional deep margin: Positive for invasive squamous cell carcinoma at 9o'clock margin. C. Nose lesion, additional margins: 3o'clock margin piece, negative for carcinoma. 9o'clock margin piece, positive for squamous cell carcinoma, close to deep margin. D. Nose lesion, 3rd additional margin: Positive for squamous cell carcinoma. E. Nose lesion, 4th additional margin: Negative for carcinoma. SJ.mr 08/02/2024 MICROSCOPIC DIAGNOSIS A. Nose lesion, excisional biopsy: Invasive squamous cell carcinoma. See comment. B. Nose lesion, additional deep margin: Invasive squamous cell carcinoma. C. Nose lesion, 2nd additional margin: 3o'clock margin is negative for carcinoma. 9o'clock margin is positive for invasive squamous cell carcinoma at the deep margin. D. Nose lesion, 3rd additional margin: Positive for invasive squamous cell carcinoma at the deep margin. E. Nose lesion, 4th additional margin: Positive for invasive squamous cell carcinoma at the deep margin. SJ.mr 08/03/2024 COMMENT A. The tumor is present at the deep margin of the specimen. Peripheral margins are negative for tumor. E. The invasive squamous cell carcinoma is noted only at the permanent sections slide. Frozen section slides are reviewed again and negative for carcinoma. Patient Age/Sex Location Account Attending Physician MIGUEL LOVE 63/[facility] [id number] Dr. Tea Zaman MD MICROSCOPIC DESCRIPTION Slides are reviewed. GROSS DESCRIPTION A. Received fresh for frozen section diagnosis labeled with the patient's name is a specimen designated Skin of nose. The specimen is oriented on a gauze piece The specimen consists of a piece of goodson-white skin measuring 2.2 x 1.1 x 0.4cm. This piece is inked as follows: 12o'clock-black, 6o'clock-blue, 3 o'clock-green, 9 o'clock- yellow. The specimen is serially sectioned and submitted entirely for frozen section diagnosis in two cassettes. Cassette 1 contains the 3 9o'clock margins. B. Received fresh for frozen section diagnosis labeled with the patient's name is a specimen designated Additional deep margin. The specimen is oriented on a gauze piece The specimen consists of a goodson soft tissue measuring 1.5 x 1.5 x 0.1cm. The specimen is inked as follows: 12o'clock-black, 6o'clock-blue, 3 o'clock-green, 9 o'clock- yellow. The entire specimen is submitted in one cassette for frozen section diagnosis (enface margins). C. Received fresh for frozen section diagnosis labeled with the patient's name is a specimen designated 2nd additional margin. The specimen is oriented on a gauze piece. The specimen consists of two pieces of goodson-white skin. The specimen oriented as 3o'clock measures 2.3 x 0.2 x 0.1cm. and a piece oriented as 9 o'clock measures 2 x 0.7 x 0.1cm. The specimen is inked as follows: 12o'clock-black, 6o'clock-blue, 3 o'clock-green, 9 o'clock- yellow. The entire specimen is submitted in two cassettes for frozen section diagnosis. D. Received fresh for frozen section diagnosis labeled with the patient's name is a specimen designated 3rd additional margin. The specimen is oriented on a gauze piece. The specimen consists of a piece of goodson soft tissue measuring 2 x 0.2 x 0.1cm. The specimen is inked as follows: 12o'clock margin-black, 6o'clock margin-blue. The entire specimen is submitted for frozen section diagnosis in one cassette. E. Received fresh for frozen section diagnosis labeled with the patient's name is a specimen designated 4th additional margin. The specimen is oriented on a ga (more content not included)... Normal [facility] Comment on above: Performed By: #### P FSC ####[facility] [id number] [place], [place], [address] MR/POSTOP.ANEon 08-02-2024 MR/POSTOP.[facility] Medical Records Department [address] [place] [address] Anesthesia Postop Eval I 08/02/24 1120 MR#: [id number] Acct: [id number] Name: MIGUEL LOVENE Rep #: [id number] : 1960 63 From: Fiona Mosquera CRNA PCP: Luis De La Rosa Larry REEL CUTTER-C Status:REG [facility] Y Race: C Location: [facility]08-11 Anesthesia: Postop Eval I Current Vital Signs Temperature: 98.2 F Pulse Rate: 88 Blood Pressure: 123/82 Respiratory Rate: 16 Pulse Ox: 98 Oxygen Delivery Method: Room Air Assessment Airway patent: Yes Spontaneous unlabored respirations: Yes Mental status: Asleep nausea: No Vomiting: No Anesthesia Complication: No Fluid Hydration Crystalloid volume administer (ml): 1,500 Total IV fluid infused: 1,500 Progress Note Anesthesia document: Postop Eval 1 completed: Yes 08/02/24 1122 Date Fiona Granadosignwilmer Signature: Date CC: Signed Normal [facility] MR/[id number] 08-02-2024 MR/POSTOPAN2 [facility] Medical Records Department [address] [place] [address] Anesthesia Postop Eval II 08/02/24 1908 MR#: [id number] Acct: [id number] Name: NADERMIGUEL AASHISH Rep #: [id number] : 1960 63 From: Elmer Campa MD PCP: Luis De La Rosa REEL CUTTER-C Status:DEP SDC Y Race: C Location: [facility] Anesthesia Postop Eval I Sum Postop Eval Completion status Anesthesia document: Postop Eval 1 completed: Yes Anesthesia Postop Eval I Summary Anesthesia Postop Eval I Summary: Anesthesia Postop Eval I: Assessment Summary Airway patent Yes 08/02/24 11:22 PLATE [email or web address] Spontaneous unlabored Yes 08/02/24 11:22 PLATE [email or web address] respirations Mental status Asleep 08/02/24 11:22 PLATE [email or web address] nausea No 08/02/24 11:22 PLATE STRAIGHTENER.[email or web address] Vomiting No 08/02/24 11:22 PLATE STRAIGHTENER.[email or web address] Anesthesia Postop Eval I: Fluid Summary Crystalloid volume administer 1,500 08/02/24 11:22 PLATE STRAIGHTENER.JSWI (ml) Colloids volume administered ( ml) Blood Product volume administered (ml) Total IV fluid infused 1,500 08/02/24 11:22 PLATE [email or web address].[email or web address] Anesthesia Postop Eval I: Summary Notes Anesthesia Complication No 08/02/24 11:22 PLATE [email or web address].[email or web address] Anesthesia Complication Comment: Post-operative progress note Anesthesia: Postop Eval II Evaluation Mental status: Awake and Calm Pain Level: 1 nausea: No Vomiting: No Complications Anesthesia Complication: No 08/02/24 1908 Date Elmer Campa MD Cosigner Signature: Date CC: Signed Normal [facility] Operative Reporton 5 Operative Report [facility] Medical Records Department [address] [place] [address] Operative Report 08/02/24 1115 MR#: [id number] Acct: [id number] Name: MIGUEL LOVE Rep #: [id number] : 1960 63 From: Tea Zaman MD PCP: Luis De La Rosa Larry REEL CUTTER-C Status:[facility] Location: [facility] Operative Report (Standard) Operative Information Date of Procedure: 08/02/24 Pre-Operative Diagnosis: Biopsy-proven SCC of nasal dorsum Post-Operative Diagnosis: Same Surgery/Procedure Performed: Excision SCC nasal dorsum with frozen section x 5; rotation flap closures x 2 for wound closure (3 x 4 cm; 3 x 4cm) pug machine operator: No Type of Anesthesia: General RN Documented Start/Stop Times: Operation Date: 08/02/24 07:30 Case Time Into Pre-Op 08/02/24 05:51 Out of Pre-Op 08/02/24 07:26 Anesthesia Start 08/02/24 07:30 Into Room 08/02/24 07:30 Procedure Start 08/02/24 08:00 Procedure End 08/02/24 11:08 Procedure Start Time: 08:00 Procedure Stop Time: 11:08 Select all DRAINS/GRAFTS/IMPLANTS that apply: None Estimated Blood Loss: <20cc Specimen collected: Yes Description of specimen(s) removed: SCC nasal dorsum with frozen section x 5 Description of surgery: The patient presents with biopsy-proven SCC of the dorsum of the nose. He presents for removal with frozen section evaluation for clear margins. He is aware of the potential for rotation flap closure of the resulting wound. Patient is brought to the operating room and placed under general anesthesia in the supine position. Care is taken to pad all pressure points, apply sequential compression stockings, and a warming blanket. The face is prepped and draped in the usual sterile fashion. We initially began with excising the previously biopsied skin cancer site on the dorsum of the nose. This is marked for orientation and passed off the operative field. Hemostasis is controlled with cautery. Frozen section reveals positive margin and therefore a repeat frozen section is performed in the same way. In total, 5 frozen sections were needed to obtain clear margins of the periphery and deep. Hemostasis is controlled with cautery. The size of the wound eliminates the possibility of primary closure and therefore rotation flap closures from the upper nasolabial fold are designed bilaterally. These flaps are initially injected peripheral to the flap with 1% Xylocaine with epinephrine. The flaps are then elevated in a subcutaneous/fascial plane. Hemostasis is controlled with cautery. The flaps are then transposed medially. These are then tacked together using silk suture. With adequate wound closure accomplished, further refinement the closure is done with running simple and horizontal mattress chromic sutures. Dermabond is applied to the incision along with Steri-Strips. A thin layer of Nitropaste is applied to the base of the flaps. He tolerated the procedure well was taken to the recovery area in an awake and stable condition. Needle and sponge counts are correct. Surgical Findings: Large SCC of the nasal dorsum Complications Complications: No Admit VTE Documentation VTE Present on Admission: No VTE Mechan Device Prophylaxis: SCD's 08/02/24 1121 Cosigner Signature (if applicable): CC: Dr. Tea Zaman MD; Stephentyron [facility] REEL CUTTER-C Beam Signed ADDENDUM by Dr. Tea Zaman MD on 09/25/24 at 1636 Addendum Intraop photo after 5th frozen section. 09/25/24 1636 Cosigner Signature (if applicable): cc: Dr. Tea Zaman MD; [facility] REEL CUTTER-C Beam * Signed Normal [facility] CBC W/Diff, Automatedon 07-11-2024 Absolute Lymph 2.83 X10 3/uL Normal 0.83-4.51 [facility] Comment on above: Result Comment: WRON G PATIENT Performed By: #### L 500.4050, L100.0100 ####[facility] [address] [place], [address] Absolute Neut 3.9 X10 3/uL Normal 2.0-7.7 [facility] Comment on above: Result Comment: WRON G PATIENT Performed By: #### L 500.4050, L100.0100 ####[facility] [address] [place], [address] BASO# 0.04 X10 3/uL Normal [facility] Comment on above: Result Comment: WRON G PATIENT Performed By: #### L 500.4050, L100.0100 ####[facility] [address] [place], [address] Basophils/100 WBC (Bld) 0.5 % Normal 0-1 [facility] Comment on above: Result Comment: WRON G PATIENT Performed By: #### L 500.4050, L100.0100 ####[facility] [address] [place], [address] EOS# 0.10 X10 3/uL Normal [facility] Comment on above: Result Comment: WRON G PATIENT Performed By: #### L 500.4050, L100.0100 ####[facility] [address] [place], [address] Eosinophils/100 WBC (Bld) 1.3 % Normal 0-5 [facility] Comment on above: Result Comment: WRON G PATIENT Performed By: #### L 500.4050, L100.0100 ####[facility] [address] [place], [address] Erythrocyte distribution width (RBC) [Ratio] 13.0 % Normal 11.6-14.6 [facility] Comment on above: Result Comment: WRON G PATIENT Performed By: #### L 500.4050, L100.0100 ####[facility] [address] [place], [address] Hematocrit (Bld) [Volume fraction] 42.0 % Normal 40-54 [facility] Comment on above: Result Comment: WRON G PATIENT Performed By: #### L 500.4050, L100.0100 ####[facility] [address] [place], [address] Hemoglobin (Bld) [Mass/Vol] 14.7 g/dL Normal 13.0-16.5 [facility] Comment on above: Result Comment: WRON G PATIENT Performed By: #### L 500.4050, L100.0100 ####[facility] [address] [place], [address] IG# 0.020 X10 3/uL High 0.0-0.0 [facility] Comment on above: Result Comment: WRON G PATIENT Performed By: #### L 500.4050, L100.0100 ####[facility] [address] [place], [address] IG% 0.300 Normal 0.0-0.9 [facility] Comment on above: Result Comment: IVAN G PATIENT IG% - Immature Granulocytes (promyelocytes, myelocytes and metamyelocytes) > 1% indicates that a LEFT SHIFT is Present. Performed By: #### L 500.4050, L100.0100 ####[facility] [address] [place], [address] LYMPH# 2.83 X10 3/ul Normal 0.83-4.51 [facility] Comment on above: Result Comment: IVAN G PATIENT Performed By: #### L 500.4050, L100.0100 ####[facility] [address] [place], [address] Lymphocytes/100 WBC (Bld) 36.1 % Normal 19-41 [facility] Comment on above: Result Comment: IVAN G PATIENT Performed By: #### L 500.4050, L100.0100 ####[facility] [address] [place], [address] MCH (RBC) [Entitic mass] 32.2 pg High 27.0-32.0 [facility] Comment on above: Result Comment: IVAN G PATIENT Performed By: #### L 500.4050, L100.0100 ####[facility] [address] [place], [address] MCHC (RBC) [Mass/Vol] 35.0 g/dL Normal 32-36 [facility] Comment on above: Result Comment: IVAN G PATIENT Performed By: #### L 500.4050, L100.0100 ####[facility] [address] [place], [address] MCV (RBC) [Entitic vol] 92.1 fL Normal 80-94 [facility] Comment on above: Result Comment: IVAN G PATIENT Performed By: #### L 500.4050, L100.0100 ####[facility] [address] [place], [address] MONO # 0.99 X10 3/uL Normal [facility] Comment on above: Result Comment: IVAN G PATIENT Performed By: #### L 500.4050, L100.0100 ####[facility] [address] [place], [address] Monocytes/100 WBC (Bld) 12.6 % High 0-10 [facility] Comment on above: Result Comment: WRON G PATIENT Performed By: #### L 500.4050, L100.0100 ####[facility] [address] [place], [address] Neutrophil # 3.86 X10 3/uL Normal 2.7-7.7 [facility] Comment on above: Result Comment: WRON G PATIENT Performed By: #### L 500.4050, L100.0100 ####[facility] [address] [place], [address] Neutrophils/100 WBC (Bld) 49.2 % Normal 47-70 [facility] Comment on above: Result Comment: WRALEXA G PATIENT Performed By: #### L 500.4050, L100.0100 ####[facility] [address] [place], [address] Nucleated RBC (Bld) [#/Vol] 0 10*3/uL Normal 0-5 [facility] Comment on above: Result Comment: WRON G PATIENT Performed By: #### L 500.4050, L100.0100 ####[facility] [address] [place], [address] Platelet mean volume (Bld) [Entitic vol] 8.2 fL Normal 6.2-12.0 [facility] Comment on above: Result Comment: WRON G PATIENT Performed By: #### L 500.4050, L100.0100 ####[facility] [address] [place], [address] Platelets (Bld) [#/Vol] 342 10*3/uL Normal 150-450 [facility] Comment on above: Result Comment: IVAN G PATIENT Performed By: #### L 500.4050, L100.0100 ####[facility] [address] [place], [address] RBC (Bld) [#/Vol] 4.56 10*6/uL Low 4.6-6.2 [facility] Comment on above: Result Comment: IVAN G PATIENT Performed By: #### L 500.4050, L100.0100 ####[facility] [address] [place], [address] RDW SD 43.8 fl Normal 35.1-43.9 [facility] Comment on above: Result Comment: IVAN G PATIENT Performed By: #### L 500.4050, L100.0100 ####[facility] [address] [place], [address] WBC (Bld) [#/Vol] 7.8 10*3/uL Normal 4.4-11.0 [facility] Comment on above: Result Comment: IVAN G PATIENT Performed By: #### L 500.4050, L100.0100 ####[facility] [address] [place], [address] Absolute Neut Normal 2.0-7.7 [facility] Comment on above: Result Comment: DUPL ICATE ORDER Performed By: #### L 500.4050, L100.0100 ####[facility] [address] [place], [address] HCT Normal 40-54 [facility] Comment on above: Result Comment: DUPL ICATE ORDER Performed By: #### L 500.4050, L100.0100 ####[facility] [address] [place], [address] HGB Normal 13.0-16.5 [facility] Comment on above: Result Comment: DUPL ICATE ORDER Performed By: #### L 500.4050, L100.0100 ####[facility] [address] [place], [address] MCH Normal 27.0-32.0 [facility] Comment on above: Result Comment: DUPL ICATE ORDER Performed By: #### L 500.4050, L100.0100 ####[facility] [address] [place], [address] MCHC Normal 32-36 [facility] Comment on above: Result Comment: DUPL ICATE ORDER Performed By: #### L 500.4050, L100.0100 ####[facility] [address] [place], [address] MCV Normal 80-94 [facility] Comment on above: Result Comment: DUPL ICATE ORDER Performed By: #### L 500.4050, L100.0100 ####[facility] [address] [place], [address] NEUT% Normal 47-70 [facility] Comment on above: Result Comment: DUPL ICATE ORDER Performed By: #### L 500.4050, L100.0100 ####[facility] [address] [place], [address] PLT Normal 150-450 [facility] Comment on above: Result Comment: DUPL ICATE ORDER Performed By: #### L 500.4050, L100.0100 ####[facility] [address] [place], [address] RBC Normal 4.6-6.2 [facility] Comment on above: Result Comment: DUPL ICATE ORDER Performed By: #### L 500.4050, L100.0100 ####[facility] [address] [place], [address] RDW CV Normal 11.6-14.6 [facility] Comment on above: Result Comment: DUPL ICATE ORDER Performed By: #### L 500.4050, L100.0100 ####[facility] [address] [place], [address] RDW SD Normal 35.1-43.9 [facility] Comment on above: Result Comment: DUPL ICATE ORDER Performed By: #### L 500.4050, L100.0100 ####[facility] [address] [place], [address] WBC Normal 4.4-11.0 [facility] Comment on above: Result Comment: DUPL ICATE ORDER Performed By: #### L 500.4050, L100.0100 ####[facility] [address] [place], [address] Comprehensive Metabolic Prof [facility] 07-23-2024 Albumin [Mass/Vol] 3.5 g/dL Normal 3.2-5.0 [facility] Comment on above: Result Comment: WRON G PATIENT Performed By: #### L 506.0400, L501.9520, L500.4050, L501.98549 #### [facility] [address] [place], [address] Albumin/Globulin [Mass ratio] 0.9 {ratio} Normal 0.9-2.4 [facility] Comment on above: Result Comment: WRON G PATIENT Performed By: #### L 506.0400, L501.9520, L500.4050, L501.31944 #### [facility] [address] [place], [address] ALK P 83 U/L Normal 45-117 [facility] Comment on above: Result Comment: WRON G PATIENT Performed By: #### L 506.0400, L501.9520, L500.4050, L501.50961 #### [facility] [address] [place], [address] ALT [Catalytic activity/Vol] 24 U/L Normal 16-61 [facility] Comment on above: Result Comment: WRON G PATIENT Performed By: #### L 506.0400, L501.9520, L500.4050, L501.62978 #### [facility] [address] [place], [address] AST [Catalytic activity/Vol] 20 U/L Normal 15-37 [facility] Comment on above: Result Comment: WRON G PATIENT Performed By: #### L 506.0400, L501.9520, L500.4050, L501.65244 #### [facility] [address] [place], [address] Bilirubin [Mass/Vol] 0.70 mg/dL Normal 0.20-1.00 [facility] Comment on above: Result Comment: WRON G PATIENT For patients on eltrombopag therapy, use of Dimension Blodgett TBIL is not recommended. Performed By: #### L 506.0400, L501.9520, L500.4050, L501.95104 #### [facility] [address] [place], [address] BUN/CRE 14.4 RATIO Normal 10-20 [facility] Comment on above: Result Comment: WRON G PATIENT Performed By: #### L 506.0400, L501.9520, L500.4050, L501.52545 #### [facility] [address] [place], [address] CA,Total 9.0 mg/dL Normal 8.5-10.1 [facility] Comment on above: Result Comment: WRON G PATIENT Performed By: #### L 506.0400, L501.9520, L500.4050, L501.25458 #### [facility] [address] [place], [address] Chloride [Moles/Vol] 106 mmol/L Normal 98-107 [facility] Comment on above: Result Comment: IVAN G PATIENT Performed By: #### L 506.0400, L501.9520, L500.4050, L501.54956 #### [facility] [address] [place], [address] CO2 [Moles/Vol] 24.0 mmol/L Normal 21.0-32.0 [facility] Comment on above: Result Comment: IVAN G PATIENT Performed By: #### L 506.0400, L501.9520, L500.4050, L501.47104 #### [facility] [address] [place], [address] Creatinine [Mass/Vol] 1.04 mg/dL Normal 0.70-1.30 [facility] Comment on above: Result Comment: IVAN G PATIENT The validity of the calculated GFR GFRAA in patients over 70 years has not been determined. Clinical correlation is essential. Performed By: #### L 506.0400, L501.9520, L500.4050, L501.80535 #### [facility] [address] [place], [address] EST GFR - AA 92 mL/min Normal >60 [facility] Comment on above: Result Comment: IVAN G PATIENT GFR Calc Performed By: #### L 506.0400, L501.9520, L500.4050, L501.21974 #### [facility] [address] [place], [address] GAP 8 Normal 5-15 [facility] Comment on above: Result Comment: IVAN G PATIENT Performed By: #### L 506.0400, L501.9520, L500.4050, L501.92490 #### [facility] [address] [place], [address] GFR/1.73 sq M.predicted among non-blacks MDRD (S/P/Bld) [Vol rate/Area] 76 mL/min/{1.73_m2} Normal >60 [facility] Comment on above: Result Comment: IVAN Okeefe PATIENT Non- GFR Calc Performed By: #### L 506.0400, L501.9520, L500.4050, L501.20284 #### [facility] [address] [place], [address] Globulin (S) [Mass/Vol] 4.0 g/dL Normal 2.2-4.2 [facility] Comment on above: Result Comment: IVAN G PATIENT Performed By: #### L 506.0400, L501.9520, L500.4050, L501.60738 #### [facility] [address] [place], [address] Glucose [Mass/Vol] 141 mg/dL High 74-106 [facility] Comment on above: Result Comment: IVAN G PATIENT Fasting Glucose result greater than or equal to 126 mg/dL suggests DIABETES MELLITUS per A.D.A. criteria. Performed By: #### L 506.0400, L501.9520, L500.4050, L501.51024 #### [facility] [address] [place], [address] Potassium [Moles/Vol] 3.9 mmol/L Normal 3.5-5.1 [facility] Comment on above: Result Comment: WRALEXA G PATIENT Performed By: #### L 506.0400, L501.9520, L500.4050, L501.41033 #### [facility] [address] [place], [address] Sodium [Moles/Vol] 138 mmol/L Normal 136-145 [facility] Comment on above: Result Comment: WRALEXA G PATIENT Performed By: #### L 506.0400, L501.9520, L500.4050, L501.23389 #### [facility] [address] [place], [address] T PROT 7.5 g/dL Normal 6.4-8.2 [facility] Comment on above: Result Comment: WRON G PATIENT Performed By: #### L 506.0400, L501.9520, L500.4050, L501.41163 #### [facility] [address] [place], [address] Urea nitrogen [Mass/Vol] 15 mg/dL Normal 7-18 [facility] Comment on above: Result Comment: WRON G PATIENT Performed By: #### L 506.0400, L501.9520, L500.4050, L501.05055 #### [facility] [address] [place], [address] Albumin [Mass/Vol] 3.8 g/dL Normal 3.2-5.0 [facility] Comment on above: Result Comment: WRON G PATIENT Performed By: #### L 500.4050, L100.0100 ####[facility] [address] [place], [address] Albumin/Globulin [Mass ratio] 1.1 {ratio} Normal 0.9-2.4 [facility] Comment on above: Result Comment: WRON G PATIENT Performed By: #### L 500.4050, L100.0100 ####[facility] [address] [place], [address] ALK P 69 U/L Normal 45-117 [facility] Comment on above: Result Comment: WRON G PATIENT Performed By: #### L 500.4050, L100.0100 ####[facility] [address] [place], [address] ALT [Catalytic activity/Vol] 23 U/L Normal 16-61 [facility] Comment on above: Result Comment: WRON G PATIENT Performed By: #### L 500.4050, L100.0100 ####[facility] [address] [place], [address] AST [Catalytic activity/Vol] 16 U/L Normal 15-37 [facility] Comment on above: Result Comment: WRON G PATIENT Performed By: #### L 500.4050, L100.0100 ####[facility] [address] [place], [address] Bilirubin [Mass/Vol] 0.70 mg/dL Normal 0.20-1.00 [facility] Comment on above: Result Comment: WRON G PATIENT For patients on eltrombopag therapy, use of Dimension Blodgett TBIL is not recommended. Performed By: #### L 500.4050, L100.0100 ####[facility] [address] [place], [address] BUN/CRE 7.7 RATIO Low 10-20 [facility] Comment on above: Result Comment: WRON G PATIENT Performed By: #### L 500.4050, L100.0100 ####[facility] [address] [place], [address] CA,Total 9.3 mg/dL Normal 8.5-10.1 [facility] Comment on above: Result Comment: WRON G PATIENT Performed By: #### L 500.4050, L100.0100 ####[facility] [address] [place], [address] Chloride [Moles/Vol] 101 mmol/L Normal 98-107 [facility] Comment on above: Result Comment: WRON G PATIENT Performed By: #### L 500.4050, L100.0100 ####[facility] [address] [place], [address] CO2 [Moles/Vol] 29.0 mmol/L Normal 21.0-32.0 [facility] Comment on above: Result Comment: WRON G PATIENT Performed By: #### L 500.4050, L100.0100 ####[facility] [address] [place], [address] Creatinine [Mass/Vol] 0.78 mg/dL Normal 0.70-1.30 [facility] Comment on above: Result Comment: WRALEXA G PATIENT The validity of the calculated GFR GFRAA in patients over 70 years has not been determined. Clinical correlation is essential. Performed By: #### L 500.4050, L100.0100 ####[facility] [address] [place], [address] EST GFR - AA 127 mL/min Normal >60 [facility] Comment on above: Result Comment: IVAN G PATIENT GFR Calc Performed By: #### L 500.4050, L100.0100 ####[facility] [address] [place], [address] GAP 1 Low 5-15 [facility] Comment on above: Result Comment: IVAN G PATIENT Performed By: #### L 500.4050, L100.0100 ####[facility] [address] [place], [address] GFR/1.73 sq M.predicted among non-blacks MDRD (S/P/Bld) [Vol rate/Area] 105 mL/min/{1.73_m2} Normal >60 [facility] Comment on above: Result Comment: WRALEXA G PATIENT Non- GFR Calc Performed By: #### L 500.4050, L100.0100 ####[facility] [address] [place], [address] Globulin (S) [Mass/Vol] 3.5 g/dL Normal 2.2-4.2 [facility] Comment on above: Result Comment: WRALEXA G PATIENT Performed By: #### L 500.4050, L100.0100 ####[facility] [address] [place], [address] Glucose [Mass/Vol] 114 mg/dL High 74-106 [facility] Comment on above: Result Comment: IVAN G PATIENT Fasting Glucose result from 100 to 125 mg/dL suggests IMPAIRED HOMEOSTASIS per A.D.A. criteria. Performed By: #### L 500.4050, L100.0100 ####[facility] [address] [place], [address] Potassium [Moles/Vol] 4.6 mmol/L Normal 3.5-5.1 [facility] Comment on above: Result Comment: WRALEXA G PATIENT Performed By: #### L 500.4050, L100.0100 ####[facility] [address] [place], [address] Sodium [Moles/Vol] 131 mmol/L Low 136-145 [facility] Comment on above: Result Comment: IVAN G PATIENT Performed By: #### L 500.4050, L100.0100 ####[facility] [address] [place], [address] T PROT 7.3 g/dL Normal 6.4-8.2 [facility] Comment on above: Result Comment: IVAN G PATIENT Performed By: #### L 500.4050, L100.0100 ####[facility] [address] [place], [address] Urea nitrogen [Mass/Vol] 6 mg/dL Low 7-18 [facility] Comment on above: Result Comment: WRALEXA G PATIENT Performed By: #### L 500.4050, L100.0100 ####[facility] [address] [place], [address] ALB Normal 3.2-5.0 [facility] Comment on above: Result Comment: DUPL ICATE ORDER -COMPLETED 07/23/24 SWOLFHOPE Performed By: #### L 500.4050, L100.0100 ####[facility] [address] [place], [address] ALK P Normal 45-117 [facility] Comment on above: Result Comment: DUPL ICATE ORDER -COMPLETED 07/23/24 SWOLFHOPE Performed By: #### L 500.4050, L100.0100 ####[facility] [address] [place], [address] ALT Normal 16-61 [facility] Comment on above: Result Comment: DUPL ICATE ORDER -COMPLETED 07/23/24 SWOLFHOPE Performed By: #### L 500.4050, L100.0100 ####[facility] [address] [place], [address] AST Normal 15-37 [facility] Comment on above: Result Comment: DUPL ICATE ORDER -COMPLETED 07/23/24 SWOLFHOPE Performed By: #### L 500.4050, L100.0100 ####[facility] [address] [place], [address] BUN Normal 7-18 [facility] Comment on above: Result Comment: DUPL ICATE ORDER -COMPLETED 07/23/24 SWOLFHOPE Performed By: #### L 500.4050, L100.0100 ####[facility] [address] [place], [address] BUN/CRE Normal 10-20 [facility] Comment on above: Result Comment: DUPL ICATE ORDER -COMPLETED 07/23/24 SWOLFHOPE Performed By: #### L 500.4050, L100.0100 ####[facility] [address] [place], [address] CA,Total Normal 8.5-10.1 [facility] Comment on above: Result Comment: DUPL ICATE ORDER -COMPLETED 07/23/24 SWOLFHOPE Performed By: #### L 500.4050, L100.0100 ####[facility] [address] [place], [address] CL Normal 98-107 [facility] Comment on above: Result Comment: DUPL ICATE ORDER -COMPLETED 07/23/24 SWOLFHOPE Performed By: #### L 500.4050, L100.0100 ####[facility] [address] [place], [address] CO2 Normal 21.0-32.0 [facility] Comment on above: Result Comment: DUPL ICATE ORDER -COMPLETED 07/23/24 SWOLFHOPE Performed By: #### L 500.4050, L100.0100 ####[facility] [address] [place], [address] CREAT,SERUM Normal 0.70-1.30 [facility] Comment on above: Result Comment: DUPL ICATE ORDER -COMPLETED 07/23/24 SWOLFHOPE Performed By: #### L 500.4050, L100.0100 ####[facility] [address] [place], [address] EST GFR Normal >60 [facility] Comment on above: Result Comment: DUPL ICATE ORDER -COMPLETED 07/23/24 SWOLFHOPE Performed By: #### L 500.4050, L100.0100 ####[facility] [address] [place], [address] EST GFR - AA Normal >60 [facility] Comment on above: Result Comment: DUPL ICATE ORDER -COMPLETED 07/23/24 SWOLFHOPE Performed By: #### L 500.4050, L100.0100 ####[facility] [address] [place], [address] GAP Normal 5-15 [facility] Comment on above: Result Comment: DUPL ICATE ORDER -COMPLETED 07/23/24 SWOLFHOPE Performed By: #### L 500.4050, L100.0100 ####[facility] [address] [place], [address] GLU Normal 74-106 [facility] Comment on above: Result Comment: DUPL ICATE ORDER -COMPLETED 07/23/24 SWOLFHOPE Performed By: #### L 500.4050, L100.0100 ####[facility] [address] [place], [address] Potassium Normal 3.5-5.1 [facility] Comment on above: Result Comment: DUPL ICATE ORDER -COMPLETED 07/23/24 SWOLFHOPE Performed By: #### L 500.4050, L100.0100 ####[facility] [address] [place], [address] T BILI Normal 0.20-1.00 [facility] Comment on above: Result Comment: DUPL ICATE ORDER -COMPLETED 07/23/24 SWOLFHOPE Performed By: #### L 500.4050, L100.0100 ####[facility] [address] [place], [address] T PROT Normal 6.4-8.2 [facility] Comment on above: Result Comment: DUPL ICATE ORDER -COMPLETED 07/23/24 SWOLFHOPE Performed By: #### L 500.4050, L100.0100 ####[facility] [address] [place], [address] Comprehensive Metabolic Profil Normal 136-145 [facility] Comment on above: Result Comment: DUPL ICATE ORDER -COMPLETED 07/23/24 SWOLFHOPE Performed By: #### L 500.4050, L100.0100 ####[facility] [address] [place], [address] Free T3on 07-23-2024 Free T3 [Mass/Vol] 9.2 pg/mL High 2.18-3.98 [facility] Comment on above: Order Comment: WRONG PATIENT Result Comment: WRON G PATIENT Performed By: #### L 506.0400, L501.9520, L500.4050, L501.26994 #### [facility] [address] [place], [place], [address] T4 Free Directon 07-23-2024 T4 FREE DIRECT 2.41 ng/dL High 0.76-1.46 [facility] Comment on above: Order Comment: WRONG PATIENTWRONG PATIENT Result Comment: WRALEXA G PATIENT Performed By: #### L 506.0400, L501.9520, L500.4050, L501.80358 ####[facility] [address] [place], [address] Thyroid Stim Hormone (TSH)on 07-23-2024 TSH Qn m[IU]/L Low 0.358-3.740 [facility] Comment on above: Order Comment: WRONG PATIENT WRONG PATIENT Result Comment: WRALEXA G PATIENT Performed By: #### L 506.0400, L501.9520, L500.4050, L501.74956 #### [facility] [address] [place], [address] Plastic Surgery Visit Report on 07-17-2024 Plastic Surgery Visit Report [facility] Plastic Reconstructive Surgery [address] [place] [address] OFFICE VISIT Date of Service: 07/17/24 MR#: [id number] Acct: [id number] Name: MIGUEL LOVE Rep #: [id number] : 1960 Provider: Dr. Tea fuller MD Age/Sex: 63/M Location: [facility] Status: Signed Intake Vital Signs 07/03/24 09:27 07/17/24 15:48 Height 5 ft 10 in 5 ft 10 in BP 161/96 H 164/92 H Blood Pressure Location Rt brachial Lt brachial Position Sitting Sitting Respiration 18 18 Pulse 87 96 Temp 97.7 F L 97.3 F L Temp Source Oral Oral Pulse Oximetry (%) 98 85 Oxygen Delivery Method room air room air Comment pt hands cold Intake Visit Reasons: FOLLOW UP Chief Complaint: post op lesions on cheek, nose Is patient in pain?: No Allergies No Known Allergies Allergy (Verified 07/17/24 15:49) Medications ???Medication ???Instructions ???Recorded ???Confirmed ???Type lisinopril 10 mg tablet 20 mg PO DAILY 06/19/24 07/17/24 History Have you fallen in the past year?: No Nurse's Note: pt here for post op lesions, no issues Subjective Details: Mr. Love comes in today for recheck of the cyst removed from his cheek as well as the skin cancer of his nose and arm. He denies any problems. He has questions about a protuberance of tissue at the bottom edge of the previous cyst excision on the cheek. Objective Details: He has a small dogear at the inferior aspect of the cheek incision. I have instructed him on massaging the area with pressure to help reduce the size of this. The nose incision has a small opening on the left aspect. There is no evidence of infection. Remaining sutures are removed. The arm incision is well-approximated. I reviewed massage of this area and moisturizing with Aquaphor. We will schedule reexcision of the nose SCC since these margins were positive. This will be done with frozen section. We will schedule this under a general anesthetic as an outpatient. 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 BCC (basal cell carcinoma), arm C44.611 [facility] Medical History Loss of hearing Wears glasses Smoker Hypertension History of hearing problem History of back problems Surgical History History of inguinal hernia repair History of cataract extraction with lens replacement ( 2021) Social History Smoking Status: Current every day smoker (Patient smoked today.) tobacco type: cigarettes alcohol intake: never substance use type: does not use additional social history: pt denies aspirin and ibuprofen use, pt denies vaping, denies marijuana use, denies edibles. Assessment and Plan (No Qualifiers) Assessment and Plan (1) Squamous cell cancer of skin of nose: Status: Acute (2) BCC (basal cell carcinoma), arm: Status: Acute Plan Details Additional Comments: Patient for excision SCC nose with FS under a general anesthetic as an outpatient 07/17/24 1650 Date Tea Zaman MD Cosigner Signature: Date (if applicable) CC: Normal [facility] Plastic Surgery Visit Report on 07-03-2024 Plastic Surgery Visit Report [facility] Plastic Reconstructive Surgery [address] [place] [address] OFFICE VISIT Date of Service: 07/03/24 MR#: [id number] Acct: [id number] Name: MIGUEL LOVE Rep #: [id number] : 1960 Provider: Dr. Tea fuller MD Age/Sex: 63/M Location: [facility] Status: Signed Intake Vital Signs 06/05/24 13:46 06/29/24 10:23 07/03/24 09:27 Height 5 ft 10 in 5 ft 10 in 5 ft 10 in BP 161/96 H Blood Pressure Location Rt brachial Position Sitting Respiration 18 Pulse 87 Temp 97.7 F L Temp Source Oral Pulse Oximetry (%) 98 Oxygen Delivery Method room air Intake Visit Reasons: POST OP Is patient in pain?: No Allergies No Known Allergies Allergy (Verified 07/03/24 09:27) Medications ???Medication ???Instructions ???Recorded ???Confirmed ???Type lisinopril 10 mg tablet 20 mg PO DAILY 06/19/24 07/03/24 History cephalexin 500 mg capsule 500 mg PO BID 7 days #14 caps 06/29/24 07/03/24 Rx Have you fallen in the past year?: No Nurse's Note: pt here post op, no issues Subjective Details: Mr. Love comes in for recheck of the cyst removed from his cheek as well as the lesion of his nose and left arm. He denies any problems. Objective Details: Incisions are all well-approximated. They were cleaned with peroxide and antibiotic ointment applied. The pathology was reviewed with him. The right cheek site was consistent with an inflamed epidermal inclusion cyst The nose site was consistent with an invasive squamous cell carcinoma. The deep margin was positive and this will need additional excision with frozen section once he is out of the early healing stages. The arm site was consistent with a basal cell carcinoma which was completely excised?no further treatment is necessary. Further instructions were reviewed with him including application of antibiotic ointment to the sites daily. He can begin to get them wet. I asked him to wear a Band-Aid on the left arm due to its vulnerability to get bumped. I will see him back in a few weeks for recheck and suture removal. 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 BCC (basal cell carcinoma), arm C44.611 Epidermal inclusion cyst L72.0 [facility] Medical History Loss of hearing Wears glasses Smoker Hypertension History of hearing problem History of back problems Surgical History History of inguinal hernia repair History of cataract extraction with lens replacement ( 2021) Social History Smoking Status: Current every day smoker (Patient smoked today.) tobacco type: cigarettes alcohol intake: never substance use type: does not use additional social history: pt denies aspirin and ibuprofen use, pt denies vaping, denies marijuana use, denies edibles. Assessment and Plan (No Qualifiers) Assessment and Plan (1) Squamous cell cancer of skin of nose: Status: Acute (2) BCC (basal cell carcinoma), arm: Status: Acute (3) Epidermal inclusion cyst: Status: Acute Plan Details Additional Comments: He is to follow-up in a few weeks for recheck. 07/03/24 1133 Date Tea Zaman MD Cosign Signature: Date (if applicable) CC: Normal [facility] Discharge Instructionon 06-11 Discharge Instruction [facility] Medical Records Department [address] [place] [address] Instructions for Home/Discharge Instructions 06/29/24 1306 MR#: [id number] Acct: [id number] Name: MIGUEL LOVE Rep #: [id number] : 1960 63 From: Tea Zaman MD PCP: Luis De La Rosa REEL CUTTER-C Status:REG [facility] Discharge Instructions Dressing / Incision Additional Dressing/Incision Instructions:: On the cheek, you can leave this dressing on until seen next week in the office. (If it falls off, replace with gauze and tape in place) On the nose, apply antibiotic ointment (like neosporin, bacitracin, or triple antibiotic ointment) 1 x a day On the arm, you can leave this dressing on until seen in the office next week. Until seen next week, keep the dressings dry (sponge bathe only) Take the oral antibiotic (Keflex) 2 x a day until finished. Keep your back elevated (recliner position) at night to decrease swelling and bruising. Follow Up Care Please Follow Up With: Tea Zaman MD When: next week Test Results: Test results from this visit will be discussed in further detail at your follow-up appointment, if applicable. Discharge Plan Admission Attending Provider: Tea Zaman Primary Care Provider: Luis De La Rosa Instructions Print Language: Djiboutian Discharge Orders/Prescriptions Prescriptions: New cephalexin 500 mg capsule 500 mg PO BID 7 Days Qty: 14 0RF No Action lisinopril 10 mg tablet 20 mg PO DAILY Referrals / Follow Up: Luis De La Rosa, REEL CUTTER-C [Primary Care Provider] - Disposition Disposition (needs filled in before D/C Order can be placed): Home, Self Care 06/29/24 1312 Tea Zaman MD CC: Luis MONK REEL CUTTER-C Estrella Signed [facility] MR/POSTOP.ANEon 06-29-2024 MR/POSTOP.[facility] Medical Records Department [address] [place] [address] Anesthesia Postop Eval I 06/29/24 1312 MR#: [id number] Acct: [id number] Name: MIGUEL LOVE Rep #: [id number] : 1960 63 From: Clarisa Main CRNA PCP: Luis De La Rosa REEL CUTTER-C Status:REG SDC Y Race: C Location: [place] [address] Anesthesia: Postop Eval I Current Vital Signs Temperature: 97.8 F Pulse Rate: 90 Blood Pressure: 137/82 Respiratory Rate: 18 Pulse Ox: 98 Oxygen Delivery Method: Room Air Assessment Airway patent: Yes Spontaneous unlabored respirations: Yes Mental status: Awake and Calm nausea: No Vomiting: No Anesthesia Complication: No Fluid Hydration Crystalloid volume administer (ml): 1,000 Total IV fluid infused: 1,000 Progress Note Anesthesia document: Postop Eval 1 completed: Yes 06/29/241311 Date Clarisa Main PLATE STRAIGHTENER Cosigner Signature: Date CC: Signed [facility] MR/DGOELWWX1xs 06-29-2024 MR/POSTOPAN2 [facility] Medical Records Department [address] [place] [address] Anesthesia Postop Eval II 06/29/24 1320 MR#: [id number] Acct: [id number] Name: MIGUEL LOVE Rep #: [id number] : 1960 63 From: Tom Valle MD PCP: Luis De La Rosa REEL CUTTER-C Status:REG SDC Y Race: C Location: [place] [address] Anesthesia Postop Eval I Sum Postop Eval Completion status Anesthesia document: Postop Eval 1 completed: Yes Anesthesia Postop Eval I Summary Anesthesia Postop Eval I Summary: Anesthesia Postop Eval I: Assessment Summary Airway patent Yes 06/29/24 13:12 PLATE [email or web address] Spontaneous unlabored Yes 06/29/24 13:12 PLATE STRAIGHTENER.SKOBY respirations Mental status Awake,Calm 06/29/24 13:12 PLATE STRAIGHTENER.SKOBY nausea No 06/29/24 13:12 PLATE STRAIGHTENER.SKOBY Vomiting No 06/29/24 13:12 PLATE STRAIGHTENER.SKOBY Anesthesia Postop Eval I: Fluid Summary Crystalloid volume administer 1,000 06/29/24 13:12 PLATE STRAIGHTENER.SKOBY (ml) Colloids volume administered ( ml) Blood Product volume administered (ml) Total IV fluid infused 1,000 06/29/24 13:12 PLATE STRAIGHTENER.SKOBY Anesthesia Postop Eval I: Summary Notes Anesthesia Complication No 06/29/24 13:12 PLATE [email or web address] Anesthesia Complication Comment: Post-operative progress note Anesthesia: Postop Eval II Evaluation Mental status: Awake Pain Level: 1 nausea: No Vomiting: No 06/29/24 1320 Date Tom Parr Signature: Date CC: Signed Normal [facility] Operative Reporton 4 Operative Report [facility] Medical Records Department [address] [place] [address] Operative Report 06/29/24 1312 MR#: [id number] Acct: [id number] Name: MIGUEL LOVE Rep #: [id number] : 1960 63 From: Tea Zaman MD PCP: Luis De La Rosa [facility] REEL CUTTER-C Status:REG SDC Location: [address] Problems Associated Problem List Diagnoses (1) Neoplasm of uncertain behavior of skin of upper extremity: (2) Neoplasm of uncertain behavior of skin of nose: (3) Sebaceous cyst: Operative Report (Standard) Operative Information Date of Procedure: 06/29/24 Pre-Operative Diagnosis: Cyst of right cheek Atrophic neoplasm of nasal dorsum Ulcerated lesion left elbow Post-Operative Diagnosis: Same Surgery/Procedure Performed: Excision cyst of right cheek (5.5 cm) with intermediate closure of the same length Excision neoplasm nose (2.0 cm) Excision neoplasm left arm at the elbow (5.0 cm) pug machine operator: Yes Physical Therapist Aide: Kirill Lozada Tasks completed by glass ribbon machine operator assistant: Retracting Type of Anesthesia: General RN Documented Start/Stop Times: Operation Date: 06/29/24 11:30 Case Time Into Pre-Op 06/29/24 10:12 Out of Pre-Op 06/29/24 11:19 Anesthesia Start 06/29/24 11:21 Into Room 06/29/24 11:21 Procedure Start 06/29/24 11:51 Procedure End 06/29/24 13:02 Anesthesia End 06/29/24 13:07 Out of Room 06/29/24 13:07 Procedure Start Time: 11:51 Procedure Stop Time: 13:02 Select all DRAINS/GRAFTS/IMPLANTS that apply: None Estimated Blood Loss: Minimal Specimen collected: Yes Description of specimen(s) removed: Cyst of right cheek Neoplasm of nasal dorsum Neoplasm left elbow Description of surgery: The patient presents today with a large draining cystic lesion of the right cheek, and atrophic neoplasm of the nasal dorsum, and an ulcerated lesion of the left elbow. He presents for excision of the above sites and submission for pathologic valuation. Informed consent was obtained prior to surgery. He is aware the potential need for further surgery depending on the resulting pathology. The potential risks of the procedure were reviewed including the potential for facial asymmetry. He is marked in the preop holding area prior to surgery. The patient is brought to the operating room and placed under general anesthesia in the supine position. The face and left arm are prepped and draped in the usual sterile fashion. 1% Xylocaine with epinephrine is used for local anesthetic. Following this, an elliptical incision is made over the apex of the cyst and dissection carried down to the cyst. It is enucleated from its bed. The cyst is noted to be draining from an open site during the procedure. This is primarily sebaceous debris however a purulent drainage also returns. The cyst is in this way totally removed. It is passed off the operative field to be sent to pathology. Hemostasis is controlled with cautery. The wound is irrigated with saline irrigation. The wound is then closed and layers using a Monocryl suture in the subcutaneous tissue and dermis. Skin edges are approximated with a running chromic suture. The site is dressed with dry gauze and tape. We then directed our attention to neoplasm of the nose and after this is anesthetized with 1% Xylocaine with epinephrine, it is excised and passed off the operative field to be sent to pathology. Hemostasis is controlled with cautery. The wound is then closed with a combination of interrupted silk suture as well as a running chromic suture. Antibiotic ointment is placed on the site. We then directed our attention to the ulcerated neoplasm of the left elbow. After this is anesthetized with 1% Xylocaine with epinephrine to facilitate hemostasis, it is excised down to subcutaneous tissue and passed off the operative field to be sent to pathology. The site is then closed with a combination of interrupted and running chromic suture. Xeroform gauze, type VII gauze, and an Keron wrap were used to dress the site. He tolerated the procedure well was taken to the recovery area in an awakening in stable condition. Needle and sponge counts are correct. Surgical Findings: As above Complications Complications: No Admit VTE Documentation VTE Mechan Device Prophylaxis: SCD's 06/29/24 1319 Cosigner Signature (if applicable): CC: Dr. Tea Zaman MD; Stephentyron [facility]Larry Beam Signed Normal [facility] Surgery Specimen Level IIIon 06-29-2024 Surgery Specimen Level III Patient Age/Sex Location Account Attending Physician MIGUEL LOVE 63/M [facility] [id number] Dr. Tea Zaman MD Specimen: [id number] Received: 06/29/24 Status: JANURAY Kenton Num: [id number] Spec Type: Lesion Subm Dr: Dr. Tea Zaman MD HEADER OPERATION: Excision cyst right cheek with intermediate closure PRE-OP DIAGNOSIS: Neoplasm of uncertain behavior of skin of upper extremity, neoplasm of uncertain behavior of skin of nose, sebaceous cyst TISSUE SUBMITTED: A- Cyst right cheek, B-Lesion nose, C=Lesion left arm MICROSCOPIC DIAGNOSIS A. Cyst right cheek, excision: Inflamed epidermal inclusion cyst. B. 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 Actinic keratosis and solar elastosis. See comment. C. Lesion left arm, excisional biopsy: Basal cell carcinoma, nodular type, completely excised. Actinic keratosis and solar elastosis. 07/02/2024 COMMENT B. The tumor measures 0.7 x 0.2 cm (measured microscopically) and is present at the deep resection margin. Lymph-vascular or perineural invasion is not identified. MICROSCOPIC DESCRIPTION Slides are reviewed. GROSS DESCRIPTION A. Received in fixative is one container labeled with the patient's name and designated Cyst right cheek. The specimen consists of a piece of skin with underlying tissue measuring 4.0 x 2.2cm and 1.0cm in depth. Sections reveal a cyst that was previously ruptured filled with goodson-white cheesy material occupying almost entire underlying tissue. Cow Buyer sections are submitted in one cassette. B. Received in fixative is one container labeled with the patient's name and designated Lesion nose. The specimen consists of a shave biopsy of goodson-white skin measuring 1.6 x 1.0cm and 0.1cm in thickness. The specimen is inked, serially sectioned and submitted entirely in one cassette. C. Received in fixative is one container labeled with the patient's name and designated Lesion left arm. The specimen consists of a goodson-white skin ellipse measuring 2.6 x 1.7cm and up to 0.3cm in thickness. The specimen is inked, serially section and submitted entirely in two cassettes. 06/29/2024 TC: 0 CPT:84438h9,86423 Patient Age/Sex Location Account Attending Physician MIGUEL LOVE 63/M [facility] [id number] Dr. Tea Zaman MD Signed (signature on file) Dr. Shahab Hadley MD 07/02/24 1330 Normal [facility] Comment on above: Performed By: #### P SUIII #### [facility] [address] [place], [address] CBC W/Diff, Automatedon 12-0 -2023 Absolute Lymph 3.63 X10 3/uL Normal 0.83-4.51 [facility] Comment on above: Performed By: #### L 500.4100, L501.9520, L500.4050, L400.2010, L100.0100 ####[facility] [address] [place], [address] Absolute Neut 4.5 X10 3/uL Normal 2.0-7.7 [facility] Comment on above: Performed By: #### L 500.4100, L501.9520, L500.4050, L400.2010, L100.0100 ####[facility] [address] [place], [address] Basophils/100 WBC (Bld) 0.4 % Normal 0-1 [facility] Comment on above: Performed By: #### L 500.4100, L501.9520, L500.4050, L400.2011, L100.0100 ####[facility] [address] [place], [address] Eosinophils/100 WBC (Bld) 2.0 % Normal 0-5 [facility] Comment on above: Performed By: #### L 500.4100, L501.9520, L500.4050, L4, L100.0100 ####[facility] [address] [place], [address] Erythrocyte distribution width (RBC) [Ratio] 13.2 % Normal 11.6-14.6 [facility] Comment on above: Performed By: #### L 500.4100, L501.9520, L500.4050, L4, L100.0100 ####[facility] [address] [place], [address] Hematocrit (Bld) [Volume fraction] 45.5 % Normal 40-54 [facility] Comment on above: Performed By: #### L 500.4100, L501.9520, L500.4050, L4, L100.0100 ####[facility] [address] [place], [address] Hemoglobin (Bld) [Mass/Vol] 15.2 g/dL Normal 13.0-16.5 [facility] Comment on above: Performed By: #### L 500.4100, L501.9520, L500.4050, L4, L100.0100 ####[facility] [address] [place], [address] IG% 0.300 Normal 0.0-0.9 [facility] Comment on above: Result Comment: IG% - Immature Granulocytes (promyelocytes, myelocytes and metamyelocytes) > 1% indicates that a LEFT SHIFT is Present. Performed By: #### L 500.4100, L501.9520, L500.4050, L4, L100.0100 ####[facility] [address] [place], [address] Lymphocytes/100 WBC (Bld) 38.7 % Normal 19-41 [facility] Comment on above: Performed By: #### L 500.4100, L501.9520, L500.4050, L400.2010, L100.0100 ####[facility] [address] [place], [address] MCH (RBC) [Entitic mass] 31.2 pg Normal 27.0-32.0 [facility] Comment on above: Performed By: #### L 500.4100, L501.9520, L500.4050, L4, L100.0100 ####[facility] [address] [place], [address] MCHC (RBC) [Mass/Vol] 33.4 g/dL Normal 32-36 [facility] Comment on above: Performed By: #### L 500.4100, L501.9520, L500.4050, L4, L100.0100 ####[facility] [address] [place], [address] MCV (RBC) [Entitic vol] 93.4 fL Normal 80-94 [facility] Comment on above: Performed By: #### L 500.4100, L501.9520, L500.4050, L4, L100.0100 ####[facility] [address] [place], [address] Monocytes/100 WBC (Bld) 10.8 % High 0-10 [facility] Comment on above: Performed By: #### L 500.4100, L501.9520, L500.4050, L400.2010, L100.0100 ####[facility] [address] [place], [address] Neutrophils/100 WBC (Bld) 47.8 % Normal 47-70 [facility] Comment on above: Performed By: #### L 500.4100, L501.9520, L500.4050, L400.2010, L100.0100 ####[facility] [address] [place], [address] Nucleated RBC (Bld) [#/Vol] 0 10*3/uL Normal 0-5 [facility] Comment on above: Performed By: #### L 500.4100, L501.9520, L500.4050, L400.2010, L100.0100 ####[facility] [address] [place], [address] Platelet mean volume (Bld) [Entitic vol] 8.7 fL Normal 6.2-12.0 [facility] Comment on above: Performed By: #### L 500.4100, L501.9520, L500.4050, L4.2010, L100.0100 ####[facility] [address] [place], [address] Platelets (Bld) [#/Vol] 372 10*3/uL Normal 150-450 [facility] Comment on above: Performed By: #### L 500.4100, L501.9520, L500.4050, L400.2010, L100.0100 ####[facility] [address] [place], [address] RBC (Bld) [#/Vol] 4.87 10*6/uL Normal 4.6-6.2 [facility] Comment on above: Performed By: #### L 500.4100, L501.9520, L500.4050, L400.2010, L100.0100 ####[facility] [address] [place], [address] RDW SD 45.2 fl High 35.1-43.9 [facility] Comment on above: Performed By: #### L 500.4100, L501.9520, L500.4050, L400.2010, L100.0100 ####[facility] [address] [place], [address] WBC (Bld) [#/Vol] 9.4 10*3/uL Normal 4.4-11.0 [facility] Comment on above: Performed By: #### L 500.4100, L501.9520, L500.4050, L400.2010, L100.0100 ####[facility] [address] [place], [address] Chest PA and Lateralon 06-18 Chest PA and Lateral [facility] Imaging Services [address] [place] [address] Chest PA and Lateral MR#: [id number] Acct: [id number] Name: MIGUEL LOVE Rep #: [id number] : 1960 M 63 From: Patito Sainz MD PCP: Dr. Jersey Beckett MD Status: REG CLI Study: Chest PA and Lateral Date of Exam: 06/18/24 Exam# [id number] Ordering Dr: Luis De La Rosa [facility] REEL CUTTER- C [id number] INDICATION: PRE OP EXAMINATION/TECHNIQUE: X-RAY - XR Chest 2 Views COMPARISON: No relevant prior comparison study available FINDINGS: LINES/DEVICES: None. LUNGS: The lungs are hyperinflated. No consolidation, edema or effusion. No pneumothorax. MEDIASTINUM AND CARDIOVASCULAR STRUCTURES: Cardiac silhouette not enlarged. Central airways and mediastinal contour are unremarkable. BONES AND SOFT TISSUES: Unremarkable. RAD/Chest PA and Lateral IMPRESSION: Hyperinflated lungs. Electronically Signed: Patito Sainz MD at 8:31 EST , CC: Dr. Jersey Beckett MD; Stephentyron [facility] REEL CUTTER-C [employer] Furniture Repairer: Signed Normal [facility] Comprehensive Metabolic Prof ilon 06-18-2024 Albumin [Mass/Vol] 3.9 g/dL Normal 3.2-5.0 [facility] Comment on above: Performed By: #### L 500.4100, L501.9520, L500.4050, L4.2010, L100.0100 ####[facility] [address] [place], [address] Albumin/Globulin [Mass ratio] 1.0 {ratio} Normal 0.9-2.4 [facility] Comment on above: Performed By: #### L 500.4100, L501.9520, L500.4050, L400.2010, L100.0100 ####[facility] [address] [place], [address] ALK P 74 U/L Normal 45-117 [facility] Comment on above: Performed By: #### L 500.4100, L501.9520, L500.4050, L400.2010, L100.0100 ####[facility] [address] [place], [address] ALT [Catalytic activity/Vol] 23 U/L Normal 16-61 [facility] Comment on above: Performed By: #### L 500.4100, L501.9520, L500.4050, L400.2010, L100.0100 ####[facility] [address] [place], [address] AST [Catalytic activity/Vol] 18 U/L Normal 15-37 [facility] Comment on above: Performed By: #### L 500.4100, L501.9520, L500.4050, L400.2010, L100.0100 ####[facility] [address] [place], [address] Bilirubin [Mass/Vol] 0.50 mg/dL Normal 0.20-1.00 [facility] Comment on above: Result Comment: For patients on eltrombopag therapy, use of Dimension Blodgett TBIL is not recommended. Performed By: #### L 500.4100, L501.9520, L500.4050, L4.2010, L100.0100 ####[facility] [address] [place], [address] BUN/CRE 10.7 RATIO Normal 10-20 [facility] Comment on above: Performed By: #### L 500.4100, L501.9520, L500.4050, L4.2010, L100.0100 ####[facility] [address] [place], [address] CA,Total 9.4 mg/dL Normal 8.5-10.1 [facility] Comment on above: Performed By: #### L 500.4100, L501.9520, L500.4050, L4.2010, L100.0100 ####[facility] [address] [place], [address] Chloride [Moles/Vol] 104 mmol/L Normal 98-107 [facility] Comment on above: Performed By: #### L 500.4100, L501.9520, L500.4050, L400.2010, L100.0100 ####[facility] [address] [place], [address] CO2 [Moles/Vol] 27.0 mmol/L Normal 21.0-32.0 [facility] Comment on above: Performed By: #### L 500.4100, L501.9520, L500.4050, L400.2010, L100.0100 ####[facility] [address] [place], [address] Creatinine [Mass/Vol] 0.75 mg/dL Normal 0.70-1.30 [facility] Comment on above: Result Comment: The validity of the calculated GFR GFRAA in patients over 70 years has not been determined. Clinical correlation is essential. Performed By: #### L 500.4100, L501.9520, L500.4050, L400.2010, L100.0100 ####[facility] [address] [place], [address] EST GFR - AA 134 mL/min Normal >60 [facility] Comment on above: Result Comment: Afri can [place] GFR Calc Performed By: #### L 500.4100, L501.9520, L500.4050, L400.2010, L100.0100 ####[facility] [address] [place], [address] GAP 5 Normal 5-15 [facility] Comment on above: Performed By: #### L 500.4100, L501.9520, L500.4050, L4.2010, L100.0100 ####[facility] [address] [place], [address] GFR/1.73 sq M.predicted among non-blacks MDRD (S/P/Bld) [Vol rate/Area] 111 mL/min/{1.73_m2} Normal >60 [facility] Comment on above: Result Comment: Non- GFR Calc Performed By: #### L 500.4100, L501.9520, L500.4050, L400.2010, L100.0100 ####[facility] [address] [place], [address] Globulin (S) [Mass/Vol] 3.8 g/dL Normal 2.2-4.2 [facility] Comment on above: Performed By: #### L 500.4100, L501.9520, L500.4050, L400.2010, L100.0100 ####[facility] [address] [place], [address] Glucose [Mass/Vol] 90 mg/dL Normal 74-106 [facility] Comment on above: Performed By: #### L 500.4100, L501.9520, L500.4050, L400.2010, L100.0100 ####[facility] [address] [place], [address] Potassium [Moles/Vol] 4.2 mmol/L Normal 3.5-5.1 [facility] Comment on above: Performed By: #### L 500.4100, L501.9520, L500.4050, L4, L100.0100 ####[facility] [address] [place], [address] Sodium [Moles/Vol] 136 mmol/L Normal 136-145 [facility] Comment on above: Performed By: #### L 500.4100, L501.9520, L500.4050, L4.2010, L100.0100 ####[facility] [address] [place], [address] T PROT 7.7 g/dL Normal 6.4-8.2 [facility] Comment on above: Performed By: #### L 500.4100, L501.9520, L500.4050, L4, L100.0100 ####[facility] [address] [place], [address] Urea nitrogen [Mass/Vol] 8 mg/dL Normal 7-18 [facility] Comment on above: Performed By: #### L 500.4100, L501.9520, L500.4050, L400.2010, L100.0100 ####[facility] [address] [place], [address] Lipid Profileon 06-18-2024 Cholesterol [Mass/Vol] 193 mg/dL Normal 200 [facility] Comment on above: Result Comment: <200 mg/dL Desirable 200-240 mg/dL Borderline >240 mg/dL High Risk Performed By: #### L 500.4100, L501.9520, L500.4050, L4, L100.0100 ####[facility] [address] [place], [address] Cholesterol in HDL [Mass/Vol] 75 mg/dL Normal [facility] Comment on above: Result Comment: The drugs N-Acetylcysteine and Metamizole may falsely depress this assay. Reference Range HDL <40 mg/dL Low HDL Cholesterol HDL >or= 60 mg/dL High HDL Cholesterol Performed By: #### L 500.4100, L501.9520, L500.4050, L400.2010, L100.0100 ####[facility] [address] [place], [address] Cholesterol in LDL [Mass/Vol] 103 mg/dL Normal 0-130 [facility] Comment on above: Performed By: #### L 500.4100, L501.9520, L500.4050, L400.2010, L100.0100 ####[facility] [address] [place], [address] Cholesterol in VLDL [Mass/Vol] 15 mg/dL Normal 5-40 [facility] Comment on above: Performed By: #### L 500.4100, L501.9520, L500.4050, L400.2010, L100.0100 ####[facility] [address] [place], [address] Triglyceride [Mass/Vol] 73 mg/dL Normal [facility] Comment on above: Result Comment: The drugs N-Acetylcysteine and Metamizole may falsely depress this assay. Serum Triglycerides Reference Interval Normal <150 mg/dL Borderline high 150 - 199 mg/dL High 200 - 499 mg/dL Very High > or = 500 mg/dL Performed By: #### L 500.4100, L501.9520, L500.4050, L400.2010, L100.0100 ####[facility] [address] [place], [address] Thyroid Stim Hormone (TSH)on 06-18-2024 TSH 3.100 uIU/mL Normal 0.358-3.740 [facility] Comment on above: Performed By: #### L 500.4100, L501.9520, L500.4050, L400.2010, L100.0100 ####[facility] [address] [place], [address] Urinalysis, Routine (Dipstic k)on 06-18-2024 BILIRUBIN URINE Negative Normal Negative [facility] Comment on above: Order Comment: Urine , Random Performed By: #### L 500.4100, L501.9520, L500.4050, L400.2010, L100.0100 ####[facility] [address] [place], [address] Clarity (U) Clear Normal Clear [facility] Comment on above: Order Comment: Urine , Random Performed By: #### L 500.4100, L501.9520, L500.4050, L400.2010, L100.0100 ####[facility] [address] [place], [address] Color (U) Yellow Normal Yellow [facility] Comment on above: Order Comment: Urine , Random Performed By: #### L 500.4100, L501.9520, L500.4050, L400.2010, L100.0100 ####[facility] [address] [place], [address] GLUCOSE, UR Normal Normal Normal [facility] Comment on above: Order Comment: Urine , Random Performed By: #### L 500.4100, L501.9520, L500.4050, L400.2010, L100.0100 ####[facility] [address] [place], [address] KETONE UR Negative Normal Negative [facility] Comment on above: Order Comment: Urine , Random Performed By: #### L 500.4100, L501.9520, L500.4050, L400.2010, L100.0100 ####[facility] [address] [place], [address] LEUK ESTERASE Negative Normal Negative [facility] Comment on above: Order Comment: Urine , Random Performed By: #### L 500.4100, L501.9520, L500.4050, L400.2010, L100.0100 ####[facility] [address] [place], [address] Nitrite Ql (U) Negative Normal Negative [facility] Comment on above: Order Comment: Urine , Random Performed By: #### L 500.4100, L501.9520, L500.4050, L4.2010, L100.0100 ####[facility] [address] [place], [address] OCCULT BLOOD-UR Negative Normal Negative [facility] Comment on above: Order Comment: Urine , Random Performed By: #### L 500.4100, L501.9520, L500.4050, L400.2010, L100.0100 ####[facility] [address] [place], [address] pH UR 7.0 Normal 5.0 - 8.0 [facility] Comment on above: Order Comment: Urine , Random Performed By: #### L 500.4100, L501.9520, L500.4050, L400.2010, L100.0100 ####[facility] [address] [place], [address] PROT DIPSTX Negative Normal Negative [facility] Comment on above: Order Comment: Urine , Random Performed By: #### L 500.4100, L501.9520, L500.4050, L400.2010, L100.0100 ####[facility] [address] [place], [address] SP.GR. DIPSTX 1.010 Normal 1.002-1.030 [facility] Comment on above: Order Comment: Urine , Random Performed By: #### L 500.4100, L501.9520, L500.4050, L400.2010, L100.0100 ####[facility] [address] [place], [address] UROBILI Normal Normal Normal [facility] Comment on above: Order Comment: Urine , Random Performed By: #### L 500.4100, L501.9520, L500.4050, L400.2010, L100.0100 ####[facility] [address] [place], [address] Plastic Surgery Visit Report on 06-05-2024 Plastic Surgery Visit Report [facility] Plastic Reconstructive Surgery [address] [place] [address] OFFICE VISIT Date of Service: 06/05/24 MR#: [id number] Acct: [id number] Name: MIGUEL LOVE Rep #: [id number] : 1960 Provider: Dr. Tea fuller MD Age/Sex: 63/M Location: [facility] Status: Signed Intake Vital Signs 06/05/24 13:46 Height 5 ft 10 in Weight: 154 lb 6 oz BMI 22.1 BP 177/97 H Blood Pressure Location Lt brachial Position Sitting Respiration 18 Pulse 79 Temp 97.4 F L Temp Source Oral Pulse Oximetry (%) 94 Oxygen Delivery Method room air Intake Visit Reasons: CYST ON CHEEK Is patient in pain?: No Allergies No Known Allergies Allergy (Unverified 06/05/24 13:41) Medications ???Medication ???Instructions ???Recorded ???Confirmed ???Type NK 06/05/24 06/05/24 History Have you fallen in the past year?: No Nurse's Note: pt here to evaluation cyst on right cheek and lesion on left elbow [facility] Medical History (Updated 06/05/24 @ 14:[address] Tea Zaman MD) History of hearing problem History of back problems Social History (Updated 06/05/24 @ 13:47 by Josephine Saeed) Smoking Status: Current every day smoker alcohol intake: never substance use type: does not use additional social history: pt denies aspirin and ibuprofen use, pt denies vaping, denies marijuana use, denies edibles. HPI CYST ON CHEEK Details: Miguel is a 63-year-old male who presents with a longstanding history of a cyst on his right cheek. He states he has never squeezed it but it has been there for years and has gotten larger over the past 1 year. He denies any dental issues. He smokes 1 pack/day. He does not have a PCP. He is not on any medications. 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 He lives alone. ROS General General: Yes good health; No fatigue, fever(s) or weight loss HENMT HENMT: No rhinitis, sore throat/mouth sore, nasal congestion, contacts or glaucoma Endo Endocrine: No thyroid disease, polydipsia, heat intolerance, cold intolerance, hepatitis or excessive urine Skin Skin: No Bleeding, bruising, changing moles or suspicious lesion Musc Musculoskeletal: No joint pain, joint stiffness, muscle weakness, back pain, osteoarthritis or Muscle aches/ myalgia Neuro Neurological: No headache(s), No lightheadedness and No numbness Cardio Cardiovascular: No chest pain, pacemaker, fatigue or shortness of breat with exertion Psych Psychiatric: No depression, claustrophobia or anxiety Resp Respiratory: No spitting up, shortness of breath, sleep apnea, asthma, emphysema, TB, Cough or Smoker Gastro Gastrointestinal: No diarrhea, constipation, blood in stool, nausea, vomiting or abdominal bloating Andrew Hematologic: No anemia, No bleeding and No abnormal bleeding Genitourinary: No urinary frequency, blood in urine or incontinence Exam Details Patient with a large exophytic cyst of the right cheek. There is attenuation of the apex of the cyst with some sebaceous debris that extrudes with gentle pressure. There is no evidence of infection. His oral mucosa is intact and there are no loose teeth. His facial nerve function is intact. He is noted to keep his left eyebrow raised as compared to his right eyebrow. He is also noted to have an atrophic area on the nasal dorsum concerning for skin malignancy. He also has an ulcerated and hyperkeratotic lesion at the left arm on the lateral antecubital area. I reviewed excision of these lesions under a general anesthetic. All specimens will be sent to pathology for evaluation. He is aware of the potential need for further surgery depending on the resulting pathology. He lives alone but can arrange for a ride for the surgery. Const General: cooperative Neck Neck: no lymphadenopathy Psych Appearance: grossly normal Coding Level of Care Code Off vis,new,level 3 Diagnoses Sebaceous cyst L72.3 Neoplasm of uncertain behavior of skin of nose D48.5 Neoplasm of uncertain behavior of skin of upper extremity D48.5 Assessment and Plan (No Qualifiers) Assessment and Plan (1) Sebaceous cyst: Status: Acute (2) Neoplasm of uncertain behavior of skin of nose: Status: Acute (3) Neoplasm of uncertain behavior of skin of upper extremity: Status: Acute Plan Details Additional Comments: The procedure of excision cyst right cheek; excision neoplasm nasal dorsum; excision neoplasm left arm was thoroughly reviewed with the patient including risks and alternatives of care. Informed consent was obtained. The patient will be scheduled for the procedure under [general] anesthesia. The specimens will be sent to pathology for evaluation. They are to call with any problems or questions prior to the procedure. Clinic (more content not included)... Normal [facility] Office Visit Reporton 2023 Office Visit Report [facility] [address] [place] [address] OFFICE VISIT Date of Service: 11/19/23 MR#: [id number] Acct: [id number] Patient: MIGUEL LOVE Rep #: [id number] : 1960 Provider: CB Phillip Age/Sex: 63/M Location: [facility] Status: Signed Intake Intake Visit Reasons: PA NON DOT DRUG AND BAT/ ARTIFLEX Allergies No Known Allergies Allergy (Verified 06/19/24 14:21) Have you fallen in the past year?: No Office Procedures [facility] Billing Sheet Testing Post-Accident Non-DOT Breath Alcohol Test: Yes Post-Accident NON-DOT Drug Screen in [facility]: Yes Clinical Quality Measures Falls Risk Screening/Assistive Devices Have you fallen in the past year?: No 06/23/24 1034 Date Saranya Phillip REEL CUTTER-C Cosigner Signature: Date (if applicable) CC: Normal [facility] Vital Signs Date Time Vital Sign Value Performing Clinician Faci lity 01-14-2025 08:56-0400 Body height 175.26 cm Zebulun Beam REEL CUTTER-C Work Phone: 3(901)426-794122 [place] [address] 01-14-2025 08:56-0400 Body mass index (BMI) [Ratio] 20.9 kg/m2 Zebulun Beam REEL CUTTER-C Work Phone: 8(059)991-366922 [place] [address] 01-14-2025 08:56-0400 Body temperature 97.8 [degF] Zebulun Beam REEL CUTTER-C Work Phone: 0(475)326-981122 [place] [address] 01-14-2025 08:56-0400 Body weight 64.43 kg Zebulun Beam REEL CUTTER-C Work Phone: 8(080)539-732622 [place] [address] 01-14-2025 08:56-0400 Diastolic blood pressure 69 mm[Hg] Zebulun Beam REEL CUTTER-C Work Phone: 3(379)987-498022 [place] [address] 01-14-2025 08:56-0400 Heart rate 87 /min Zebulun Beam REEL CUTTER-C Work Phone: 7(010)913-119622 [place] [address] 01-14-2025 08:56-0400 Respiratory rate 18 /min Zebulun Beam REEL CUTTER-C Work Phone: 4(882)875-650122 [place] [address] 01-14-2025 08:56-0400 SaO2% (BldA) [Mass fraction] 97 % Zebulun Beam REEL CUTTER-C Work Phone: 4(527)290-318822 [place] [address] 01-14-2025 08:56-0400 Systolic blood pressure 102 mm[Hg] Zebulun Beam REEL CUTTER-C Work Phone: 8(814)087-384722 [place] [address] 01-09-2025 08:54-0400 Body height 175.26 cm Zebulun Beam REEL CUTTER-C Work Phone: 7(424)392-344522 [place] [address] 01-09-2025 08:54-0400 Body mass index (BMI) [Ratio] 21.1 kg/m2 Zebulun Beam REEL CUTTER-C Work Phone: 2(275)059-573722 [place] [address] 01-09-2025 08:54-0400 Body weight 64.86 kg Zebulun Beam REEL CUTTER-C Work Phone: 7(749)690-464822 [place] [address] 01-09-2025 08:54-0400 Diastolic blood pressure 77 mm[Hg] Zebulun Beam REEL CUTTER-C Work Phone: 8(453)237-350922 [place] [address] 01-09-2025 08:54-0400 Heart rate 72 /min Zebulun Beam REEL CUTTER-C Work Phone: 1(745)388-991222 [place] [address] 01-09-2025 08:54-0400 Respiratory rate 16 /min Zebulun Beam REEL CUTTER-C Work Phone: 5(003)761-765722 [place] [address] 01-09-2025 08:54-0400 Systolic blood pressure 119 mm[Hg] Zebulun Beam REEL CUTTER-C Work Phone: 0(838)074-285622 [place] [address] 12-12-2024 09:09-0400 Body height 175.26 cm Zebulun Beam REEL CUTTER-C Work Phone: 6(865)254-155222 [place] [address] 12-12-2024 09:09-0400 Body mass index (BMI) [Ratio] 21.2 kg/m2 Zebulun Beam REEL CUTTER-C Work Phone: 8(844)806-226722 [place] [address] 12-12-2024 09:09-0400 Body temperature 98.6 [degF] Zebulun Beam REEL CUTTER-C Work Phone: 1(586)869-557222 [place] [address] 12-12-2024 09:09-0400 Body weight 65.4 kg Zebulun Beam REEL CUTTER-C Work Phone: 4(759)461-334422 [place] [address] 12-12-2024 09:09-0400 Diastolic blood pressure 80 mm[Hg] Zebulun Beam REEL CUTTER-C Work Phone: 8(765)217-294222 [place] [address] 12-12-2024 09:09-0400 Heart rate 70 /min Zebulun Beam REEL CUTTER-C Work Phone: 2(256)668-722322 [place] [address] 12-12-2024 09:09-0400 Respiratory rate 16 /min Zebulun Beam REEL CUTTER-C Work Phone: 8(148)986-010122 [place] [address] 12-12-2024 09:09-0400 SaO2% (BldA) [Mass fraction] 97 % Zebulun Beam REEL CUTTER-C Work Phone: 4(785)825-969222 [place] [address] 12-12-2024 09:09-0400 Systolic blood pressure 145 mm[Hg] Zebulun Beam REEL CUTTER-C Work Phone: 3(313)919-306222 [place] [address] 12-05-2024 09:12-0400 Body height 175.26 cm Zebulun Beam REEL CUTTER-C Work Phone: 5(515)537-453122 [place] [address] 12-05-2024 09:12-0400 Body mass index (BMI) [Ratio] 21.2 kg/m2 Zebulun Beam REEL CUTTER-C Work Phone: 2(049)250-655522 [place] [address] 12-05-2024 09:12-0400 Body temperature 98.4 [degF] Zebulun Beam REEL CUTTER-C Work Phone: 0(149)105-564222 [place] [address] 12-05-2024 09:12-0400 Body weight 65.31 kg Zebulun Beam REEL CUTTER-C Work Phone: 7(145)156-916922 [place] [address] 12-05-2024 09:12-0400 Diastolic blood pressure 79 mm[Hg] Zebulun Beam REEL CUTTER-C Work Phone: 8(845)712-697822 [place] [address] 12-05-2024 09:12-0400 Heart rate 69 /min Zebulun Beam REEL CUTTER-C Work Phone: 9(637)753-716822 [place] [address] 12-05-2024 09:12-0400 Respiratory rate 16 /min Zebulun Beam REEL CUTTER-C Work Phone: 9(625)347-489322 [place] [address] 12-05-2024 09:12-0400 SaO2% (BldA) [Mass fraction] 98 % Zebulun Beam REEL CUTTER-C Work Phone: 5(856)176-888822 [place] [address] 12-05-2024 09:12-0400 Systolic blood pressure 128 mm[Hg] Zebulun Beam REEL CUTTER-C Work Phone: 4(887)738-101822 [place] [address] 11-28-2024 08:52-0400 Body height 175.26 cm Zebulun Beam REEL CUTTER-C Work Phone: 3(015)554-026222 [place] [address] 11-28-2024 08:52-0400 Body mass index (BMI) [Ratio] 21.4 kg/m2 Zebulun Beam REEL CUTTER-C Work Phone: 5(626)564-731422 [place] [address] 11-28-2024 08:52-0400 Body temperature 98.1 [degF] Zebulun Beam REEL CUTTER-C Work Phone: 7(196)029-452222 [place] [address] 11-28-2024 08:52-0400 Body weight 65.82 kg Zebulun Beam REEL CUTTER-C Work Phone: 3(424)534-734522 [place] [address] 11-28-2024 08:52-0400 Diastolic blood pressure 77 mm[Hg] Zebulun Beam REEL CUTTER-C Work Phone: 6(231)058-157622 [place] [address] 11-28-2024 08:52-0400 Heart rate 70 /min Zebulun Beam REEL CUTTER-C Work Phone: 6(670)586-724422 [place] [address] 11-28-2024 08:52-0400 Respiratory rate 16 /min Zebulun Beam REEL CUTTER-C Work Phone: 0(732)946-024722 [place] [address] 11-28-2024 08:52-0400 SaO2% (BldA) [Mass fraction] 99 % Zebulun Beam REEL CUTTER-C Work Phone: 6(548)029-801522 [place] [address] 11-28-2024 08:52-0400 Systolic blood pressure 129 mm[Hg] Zebulun Beam REEL CUTTER-C Work Phone: 9(292)212-916922 [place] [address] 11-21-2024 08:43-0400 Body height 175.26 cm Zebulun Beam REEL CUTTER-C Work Phone: 4(857)521-201422 [place] [address] 11-21-2024 08:43-0400 Body mass index (BMI) [Ratio] 21.1 kg/m2 Zebulun Beam REEL CUTTER-C Work Phone: 5(581)812-613622 [place] [address] 11-21-2024 08:43-0400 Body temperature 98.6 [degF] Zebulun Beam REEL CUTTER-C Work Phone: 4(137)057-525522 [place] [address] 11-21-2024 08:43-0400 Body weight 64.89 kg Zebulun Beam REEL CUTTER-C Work Phone: 5(624)511-133222 [place] [address] 11-21-2024 08:43-0400 Diastolic blood pressure 79 mm[Hg] Zebulun Beam REEL CUTTER-C Work Phone: 0(795)174-056122 [place] [address] 11-21-2024 08:43-0400 Heart rate 81 /min Zebulun Beam REEL CUTTER-C Work Phone: 0(829)412-138622 [place] [address] 11-21-2024 08:43-0400 Respiratory rate 16 /min Zebulun Beam REEL CUTTER-C Work Phone: 6(195)696-124922 [place] [id number] 11-21-2024 08:43-0400 SaO2% (BldA) [Mass fraction] 100 % Zebulun Beam [employer] Work Phone: 0(111)512-504622 [place] [address] 11-21-2024 08:43-0400 Systolic blood pressure 151 mm[Hg] Zebulun Beam [employer] Work Phone: 6(806)768-992222 [place] [address] 11-14-2024 08:52-0400 Body mass index (BMI) [Ratio] 21.3 kg/m2 Zebulun Beam [employer] Work Phone: 1(674)445-610222 [place] [address] 11-14-2024 08:52-0400 Body temperature 98.7 [degF] Zebulun Beam [employer] Work Phone: 1(203)923-588422 [place] [address] 11-14-2024 08:52-0400 Body weight 65.45 kg Zebulun Beam [employer] Work Phone: 6(562)117-616022 [place] [address] 11-14-2024 08:52-0400 Diastolic blood pressure 77 mm[Hg] Zebulun Beam [employer] Work Phone: 8(701)922-759322 [place] [address] 11-14-2024 08:52-0400 Heart rate 71 /min Zebulun Beam [employer] Work Phone: 4(378)358-940022 [place] [address] 11-14-2024 08:52-0400 Respiratory rate 16 /min Zebulun Beam [employer] Work Phone: 9(753)359-755322 [place] [address] 11-14-2024 08:52-0400 SaO2% (BldA) [Mass fraction] 99 % Zebulun Beam [employer] Work Phone: 6(806)401-093522 [place] [address] 11-14-2024 08:52-0400 Systolic blood pressure 124 mm[Hg] Zebulun Beam [employer] Work Phone: 5(174)999-629922 [place] [address] 11-07-2024 08:51-0400 Body mass index (BMI) [Ratio] 21.2 kg/m2 Zebulun Beam [employer] Work Phone: 9(088)446-384322 [place] [address] 11-07-2024 08:51-0400 Body temperature 98.5 [degF] Zebulun Beam [employer] Work Phone: 0(801)873-871622 [place] [address] 11-07-2024 08:51-0400 Body weight 65.09 kg Zebulun Beam [employer] Work Phone: 8(094)382-694922 [place] [address] 11-07-2024 08:51-0400 Diastolic blood pressure 71 mm[Hg] Zebulun Beam [employer] Work Phone: 9(690)451-192322 [place] [address] 11-07-2024 08:51-0400 Heart rate 77 /min Zebulun Beam [employer] Work Phone: 0(616)644-646822 [place] [address] 11-07-2024 08:51-0400 Respiratory rate 16 /min Zebulun Beam [employer] Work Phone: 7(262)629-140422 [place] [address] 11-07-2024 08:51-0400 SaO2% (BldA) [Mass fraction] 99 % Zebulun Beam [employer] Work Phone: 5(986)528-505222 [place] [address] 11-07-2024 08:51-0400 Systolic blood pressure 125 mm[Hg] Zebulun Beam [employer] Work Phone: 3(876)877-742022 [place] [address] 11-06-2024 13:30-0400 Body mass index (BMI) [Ratio] 20.8 kg/m2 Zebulun Beam [employer] Work Phone: 2(352)523-369822 [place] [address] 11-06-2024 13:30-0400 Body temperature 97.4 [degF] Zebulun Beam [employer] Work Phone: 0(444)710-448922 [place] [address] 11-06-2024 13:30-0400 Body weight 64.09 kg Zebulun Beam [employer] Work Phone: 4(230)499-286222 [place] [address] 11-06-2024 13:30-0400 Diastolic blood pressure 80 mm[Hg] Zebulun Beam [employer] Work Phone: 3(698)695-226022 [place] [address] 11-06-2024 13:30-0400 Heart rate 83 /min Zebulun Beam [employer] Work Phone: 0(369)193-834422 [place] [address] 11-06-2024 13:30-0400 Respiratory rate 16 /min Zebulun Beam [employer] Work Phone: 9(867)006-293322 [place] [address] 11-06-2024 13:30-0400 SaO2% (BldA) [Mass fraction] 96 % Zebulun Beam [employer] Work Phone: 3(145)099-238122 [place] [address] 11-06-2024 13:30-0400 Systolic blood pressure 118 mm[Hg] Zebulun Beam [employer] Work Phone: 4(248)941-805922 [place] [address] 10-31-2024 09:41-0400 Body mass index (BMI) [Ratio] 21 kg/m2 Zebulun Beam [employer] Work Phone: 4(769)289-875322 [place] [address] 10-31-2024 09:41-0400 Body temperature 98.6 [degF] Zebulun Beam [employer] Work Phone: 0(621)864-735222 [place] [address] 10-31-2024 09:41-0400 Body weight 64.63 kg Zebulun Beam [employer] Work Phone: 2(599)093-486322 [place] [address] 10-31-2024 09:41-0400 Diastolic blood pressure 74 mm[Hg] Zebulun Beam [employer] Work Phone: 0(715)553-619522 [place] [address] 10-31-2024 09:41-0400 Heart rate 69 /min Zebulun Beam [employer] Work Phone: 0(066)229-859422 [place] [address] 10-31-2024 09:41-0400 Respiratory rate 16 /min Zebulun Beam [employer] Work Phone: 1(575)325-506922 [place] [address] 10-31-2024 09:41-0400 SaO2% (BldA) [Mass fraction] 97 % Zebulun Beam [employer] Work Phone: 7(976)352-647622 [place] [address] 10-31-2024 09:41-0400 Systolic blood pressure 122 mm[Hg] Zebulun Beam [employer] Work Phone: 3(190)111-768822 [place] [address] 10-17-2024 09:04-0400 Body mass index (BMI) [Ratio] 21.8 kg/m2 Zebulun Beam [employer] Work Phone: 2(945)130-491822 [place] [address] 10-17-2024 09:04-0400 Body temperature 97.5 [degF] Zebulun Beam [employer] Work Phone: 4(465)199-310122 [place] [address] 10-17-2024 09:04-0400 Body weight 67.13 kg Zebulun Beam [employer] Work Phone: 1(124)673-496222 [place] [address] 10-17-2024 09:04-0400 Diastolic blood pressure 82 mm[Hg] Zebulun Beam [employer] Work Phone: 9(258)757-686122 [place] [address] 10-17-2024 09:04-0400 Heart rate 79 /min Zebulun Beam [employer] Work Phone: 4(187)686-963222 [place] [address] 10-17-2024 09:04-0400 Respiratory rate 18 /min Zebulun Beam [employer] Work Phone: 0(770)812-579822 [place] [address] 10-17-2024 09:04-0400 SaO2% (BldA) [Mass fraction] 95 % Zebulun Beam [employer] Work Phone: 9(212)852-573122 [place] [address] 10-17-2024 09:04-0400 Systolic blood pressure 130 mm[Hg] Zebulun Beam [employer] Work Phone: 0(275)442-934522 [place] [address] 10-08-2024 09:00-0400 Body mass index (BMI) [Ratio] 21.4 kg/m2 Zebulun Beam [employer] Work Phone: 0(087)109-697422 [place] [address] 10-08-2024 09:00-0400 Body temperature 97.4 [degF] Zebulun Beam [employer] Work Phone: 8(574)681-047322 [place] [address] 10-08-2024 09:00-0400 Body weight 65.91 kg Zebulun Beam [employer] Work Phone: 3(037)451-427822 [place] [address] 10-08-2024 09:00-0400 Diastolic blood pressure 81 mm[Hg] Zebulun Beam [employer] Work Phone: 9(319)857-764322 [place] [address] 10-08-2024 09:00-0400 Heart rate 81 /min Zebulun Beam [employer] Work Phone: 4(452)265-199822 [place] [address] 10-08-2024 09:00-0400 Respiratory rate 16 /min Zebulun Beam [employer] Work Phone: 1(049)960-766622 [place] [address] 10-08-2024 09:00-0400 SaO2% (BldA) [Mass fraction] 98 % Zebulun Beam [employer] Work Phone: 4(809)281-120422 [place] [address] 10-08-2024 09:00-0400 Systolic blood pressure 136 mm[Hg] Zebulun Beam [employer] Work Phone: 9(155)455-730822 [place] [address] 09-19-2024 09:02-0400 Body mass index (BMI) [Ratio] 22.3 kg/m2 Zebulun Beam [employer] Work Phone: 1(174)947-293622 [place] [address] 09-19-2024 09:02-0400 Body temperature 98.6 [degF] Zebulun Beam [employer] Work Phone: 4(706)131-746922 [place] [address] 09-19-2024 09:02-0400 Body weight 68.66 kg Zebulun Beam [employer] Work Phone: 1(379)211-452122 [place] [address] 09-19-2024 09:02-0400 Diastolic blood pressure 71 mm[Hg] Zebulun Beam [employer] Work Phone: 6(067)077-587022 [place] [address] 09-19-2024 09:02-0400 Heart rate 84 /min Zebulun Beam [employer] Work Phone: 4(971)669-180622 [place] [address] 09-19-2024 09:02-0400 Respiratory rate 18 /min Zebulun Beam [employer] Work Phone: 8(286)820-943822 [place] [address] 09-19-2024 09:02-0400 SaO2% (BldA) [Mass fraction] 96 % Zebulun Beam [employer] Work Phone: 5(978)030-034722 [place] [address] 09-19-2024 09:02-0400 Systolic blood pressure 126 mm[Hg] Zebulun Beam [employer] Work Phone: 8(662)299-075122 [place] [address] 09-05-2024 09:50-0500 Body mass index (BMI) [Ratio] 22.3 kg/m2 Zebulun Beam [employer] Work Phone: 9(674)613-541722 [place] [address] 09-05-2024 09:50-0500 Body temperature 98.9 [degF] Zebulun Beam [employer] Work Phone: 2(414)558-597522 [place] [address] 09-05-2024 09:50-0500 Body weight 68.54 kg Zebulun Beam [employer] Work Phone: 6(602)967-727822 [place] [address] 09-05-2024 09:50-0500 Diastolic blood pressure 74 mm[Hg] Zebulun Beam [employer] Work Phone: 1(254)293-751822 [place] [address] 09-05-2024 09:50-0500 Heart rate 71 /min Zebulun Beam [employer] Work Phone: 5(483)923-560622 [place] [address] 09-05-2024 09:50-0500 Respiratory rate 18 /min Zebulun Beam [employer] Work Phone: 6(735)729-082722 [place] [address] 09-05-2024 09:50-0500 SaO2% (BldA) [Mass fraction] 96 % Zebulun Beam [employer] Work Phone: 8(875)587-784222 [place] [address] 09-05-2024 09:50-0500 Systolic blood pressure 129 mm[Hg] Zebulun Beam [employer] Work Phone: 1(186)093-426022 [place] [address] 08-28-2024 09:17-0500 Body mass index (BMI) [Ratio] 22.5 kg/m2 Zebulun Beam [employer] Work Phone: 8(297)366-753722 [place] [address] 08-28-2024 09:17-0500 Body temperature 97.3 [degF] Zebulun Beam [employer] Work Phone: 0(199)969-951122 [place] [address] 08-28-2024 09:17-0500 Body weight 69.17 kg Zebulun Beam [employer] Work Phone: 7(229)359-233922 [place] [address] 08-28-2024 09:17-0500 Diastolic blood pressure 79 mm[Hg] Zebulun Beam [employer] Work Phone: 2(254)133-344322 [place] [address] 08-28-2024 09:17-0500 Heart rate 87 /min Zebulun Beam [employer] Work Phone: 2(559)836-900922 [place] [address] 08-28-2024 09:17-0500 Respiratory rate 18 /min Zebulun Beam [employer] Work Phone: 6(715)656-595422 [place] [address] 08-28-2024 09:17-0500 SaO2% (BldA) [Mass fraction] 97 % Zebulun Beam [employer] Work Phone: 6(864)462-790622 [place] [address] 08-28-2024 09:17-0500 Systolic blood pressure 139 mm[Hg] Zebulun Beam [employer] Work Phone: 0(310)704-663322 [place] [address] 08-21-2024 10:16-0500 Body mass index (BMI) [Ratio] 22.7 kg/m2 Zebulun Beam [employer] Work Phone: 0(776)257-752922 [place] [address] 08-21-2024 10:16-0500 Body temperature 99.1 [degF] Zebulun Beam [employer] Work Phone: 4(767)396-744822 [place] [address] 08-21-2024 10:16-0500 Body weight 69.85 kg Zebulun Beam [employer] Work Phone: 5(471)383-288622 [place] [address] 08-21-2024 10:16-0500 Diastolic blood pressure 73 mm[Hg] Zebulun Beam [employer] Work Phone: 5(261)281-622422 [place] [address] 08-21-2024 10:16-0500 Heart rate 83 /min Zebulun Beam [employer] Work Phone: 7(931)166-758922 [place] [address] 08-21-2024 10:16-0500 Respiratory rate 18 /min Zebulun Beam [employer] Work Phone: 0(128)771-225522 [place] [address] 08-21-2024 10:16-0500 SaO2% (BldA) [Mass fraction] 95 % Zebulun Beam [employer] Work Phone: 8(643)317-083622 [place] [address] 08-21-2024 10:16-0500 Systolic blood pressure 126 mm[Hg] Zebulun Beam [employer] Work Phone: 6(753)942-481422 [place] [address] 08-14-2024 09:46-0500 Body mass index (BMI) [Ratio] 22.5 kg/m2 Zebulun Beam [employer] Work Phone: 3(736)425-186222 [place] [address] 08-14-2024 09:46-0500 Body temperature 97.3 [degF] Zebulun Beam [employer] Work Phone: 2(219)085-408922 [place] [address] 08-14-2024 09:46-0500 Body weight 69.11 kg Zebulun Beam [employer] Work Phone: 1(663)479-111822 [place] [address] 08-14-2024 09:46-0500 Diastolic blood pressure 76 mm[Hg] Zebulun Beam [employer] Work Phone: 2(678)176-828522 [place] [address] 08-14-2024 09:46-0500 Heart rate 84 /min Zebulun Beam [employer] Work Phone: 5(271)611-603422 [place] [address] 08-14-2024 09:46-0500 SaO2% (BldA) [Mass fraction] 99 % Zebulun Beam [employer] Work Phone: 4(644)395-233622 [place] [address] 08-14-2024 09:46-0500 Systolic blood pressure 136 mm[Hg] Zebulun Beam [employer] Work Phone: 5(179)922-011222 [place] [address] 08-07-2024 11:25-0500 Body mass index (BMI) [Ratio] 22.7 kg/m2 Zebulun Beam [employer] Work Phone: 3(050)595-889022 [place] [address] 08-07-2024 11:25-0500 Body temperature 97.3 [degF] Zebulun Beam [employer] Work Phone: 5(830)273-189222 [place] [address] 08-07-2024 11:25-0500 Body weight 69.85 kg Zebulun Beam [employer] Work Phone: 6(053)004-393722 [place] [address] 08-07-2024 11:25-0500 Diastolic blood pressure 82 mm[Hg] Zebulun Beam [employer] Work Phone: 3(791)265-125422 [place] [address] 08-07-2024 11:25-0500 Heart rate 79 /min Zebulun Beam [employer] Work Phone: 2(751)476-759222 [place] [address] 08-07-2024 11:25-0500 Respiratory rate 18 /min Zebulun Beam [employer] Work Phone: 9(001)349-072722 [place] [address] 08-07-2024 11:25-0500 SaO2% (BldA) [Mass fraction] 95 % Zebulun Beam [employer] Work Phone: 8(834)169-874522 [place] [address] 08-07-2024 11:25-0500 Systolic blood pressure 155 mm[Hg] Zebulun Beam [employer] Work Phone: 3(166)877-949922 [place] [address] 08-02-2024 13:29-0500 Body temperature 98.7 [degF] Zebulun Beam [employer] Work Phone: 1(936)361-684822 [place] [address] 08-02-2024 13:29-0500 Diastolic blood pressure 95 mm[Hg] Zebulun Beam [employer] Work Phone: 1(909)058-121022 [place] [address] 08-02-2024 13:29-0500 Heart rate 94 /min Zebulun Beam [employer] [facility] Work Phone: 2(802)045-247822 [place] [address] 08-02-2024 13:29-0500 Respiratory rate 16 /min Zebulun Beam [employer] Work Phone: 6(813)706-882322 [place] [address] 08-02-2024 13:29-0500 SaO2% (BldA) [Mass fraction] 100 % Zebulun Beam [employer] Work Phone: 1(711)224-202122 [place] [address] 08-02-2024 13:29-0500 Systolic blood pressure 150 mm[Hg] Zebulun Beam [employer] Work Phone: 2(773)343-791822 [place] [address] 08-02-2024 06:08-0500 Body mass index (BMI) [Ratio] 22.4 kg/m2 Zebulun Beam [employer] Work Phone: 1(303)243-710022 [place] [address] 08-02-2024 06:08-0500 Body weight 69 kg [facility] Beam [employer] Work Phone: 9(350)855-361222 [place] [address] Encounters Encounter Date Encounter Type Care Provider Facility Start: 01-14-2025 End: 01-14-[address] Jorge Curtis DO -[facility] Work Phone: Start: 01-14-2025 End: 01-14-2025 ambulatory Zebulun Beam [facility] Work Phone: [facility] Start: 01-09-2025 End: 01-09-[address] Rolan Hoover MD -[facility] Work Phone: Start: 01-09-2025 End: 01-09-2025 ambulatory Zebulun Beam [facility] Work Phone: -[facility] Start: 12-14-2024 ambulatory Zebulun Beam VSC Facili ty:[facility] Start: 12-14-[address] Jorge Monson on DO -Radiation Oncology Start: 12-12-[address] Jorge Monson on DO -Radiation Oncology Start: 12-12-2024 End: 12-12-[address] [facility] Work Phone: Start: 12-12-2024 End: 12-12-2024 ambulatory Zebulun Beam [employer] Work Phone: [facility] Work Phone: Start: 12-10-2024 Non-patient / Non-visit [facility] Work Phone: Start: 12-10-2024 ambulatory Zebulun Beam VSC Facili ty:[facility] Start: 12-05-[address] Jorge Monson on DO -Radiation Oncology Start: 12-05-2024 End: 12-05-[address] [facility] Work Phone: Start: 12-05-2024 End: 12-05-2024 ambulatory Zebulun Beam [employer] Work Phone: [facility] Work Phone: Start: 11-28-[address] Jorge Monson on DO -Radiation Oncology Start: 11-28-2024 End: 11-28-[address] [facility] Work Phone: Start: 11-28-2024 End: 11-28-2024 ambulatory Zebulun Beam [facility] Work Phone: [facility] Work Phone: Start: 11-21-[address] Jorge Monson on DO -Radiation Oncology Start: 11-21-2024 End: 11-21-[address] [facility] Work Phone: Start: 11-21-2024 End: 11-21-2024 ambulatory Zebulun Beam [facility] Work Phone: [facility] Work Phone: Start: 11-14-2024 End: 11-14-[address] [facility] Work Phone: Start: 11-14-2024 End: 11-14-2024 ambulatory Zebulun Beam VSC Facility:[facility] Start: 11-07-2024 End: 11-07-[address] Jorge Curtis [facility] Work Phone: Start: 11-07-2024 End: 11-07-2024 ambulatory Zebulun Beam VSC Facility:[facility] Start: 11-06-2024 End: 11-06-2024 Patient encounter procedure Radha Alison [facility] Work Phone: Start: 11-06-2024 End: 11-06-2024 ambulatory Zebulun Beam VSC Facility:[facility] Start: 11-06-2024 End: 11-06-2024 ambulatory Zebulun Beam VSC Facility:[facility] Start: 10-31-2024 ambulatory Zebulun Beam VSC Facili ty:[facility] Start: 10-31-2024 Non-patient / [facility] Start: 10-31-2024 End: 10-31-[address] Jorge Curtis [facility] Work Phone: Start: 10-31-2024 End: 10-31-2024 ambulatory Zebulun Beam VSC Facility:[facility] Start: 10-29-2024 ambulatory Zebulun Beam VSC Facili ty:[facility] Start: 10-29-2024 Non-patient / Non-[facility] Start: 10-24-2024 ambulatory Zebulun Beam VSC Facili ty:[facility] Start: 10-24-2024 Non-patient / Non-[facility] Start: 10-23-2024 Non-patient / Non-[facility] Start: 10-23-2024 ambulatory Zebulun Beam [facility]SC Facili ty:[facility] Start: 10-22-2024 ambulatory Zebulun Beam VSC Facili ty:[facility] Start: 10-22-2024 Non-patient / Non-visit Dr. Jorge aldana DO [facility] Start: 10-17-2024 End: 10-17-[address] Tea Zaman MD -[facility] Work Phone: Start: 10-17-2024 End: 10-17-2024 ambulatory Zebulun Beam VSC Facility:[facility] Start: 10-08-2024 ambulatory Zebulun Beam VSC Facili ty:[facility] Start: 10-08-2024 Non-patient / Non-visit Dr. Jorge aldana DO [facility] Start: 10-08-2024 End: 10-08-[address] Jorge Curtis [facility] Work Phone: Start: 10-08-2024 End: 10-08-2024 ambulatory Zebulun Beam VSC Facility:[facility] Start: 09-25-2024 Non-patient / Non-visit Ginette VIVAR -[facility] Work Phone: Start: 09-25-2024 ambulatory Zebulun Beam VSC Facili ty:[facility] Start: 09-19-2024 End: 09-19-[address] Tea Zaman MD -[facility] Work Phone: Start: 09-19-2024 End: 09-19-2024 ambulatory Zebulun Beam VSC Facility:[facility] Start: 09-05-2024 End: 09-05-[address] Tea Zaman MD -[facility] Work Phone: Start: 09-05-2024 End: 09-05-2024 ambulatory Zebulun Beam VSC Facility:[facility] Start: 08-28-2024 Encounter for other preprocedural examination Zebulun Beam VSC [facility] Start: 08-28-2024 End: 08-28-[address] Tea Zaman MD -[facility] Work Phone: Start: 08-28-2024 End: 08-28-2024 ambulatory Zebulun Beam VSC Facility:[facility] Start: 08-21-2024 End: 08-21-[address] Tea Zaman MD -[facility] Work Phone: Start: 08-21-2024 End: 08-21-2024 ambulatory Zebulun Beam VSC Facility:[facility] Start: 08-14-2024 End: 08-14-[address] Tea Zaman MD -[facility] Work Phone: Start: 08-14-2024 End: 08-14-2024 ambulatory Zebulun Beam VSC Facility:[facility] Start: 08-13-2024 Encounter for other preprocedural examination Zebulun Beam VSC [facility] Start: 08-07-2024 End: 08-07-[address] Tea Zaman MD -[facility] Work Phone: Start: 08-07-2024 End: 08-07-2024 ambulatory Zebulun Beam VSC Facility:[facility] Start: 08-02-2024 ambulatory Tea Zaman Facility :[facility] Start: 08-02-2024 Non-patient / Non-visit Dr. Oneyda MAYA -[facility] Start: 08-02-2024 End: 08-02-2024 Admission to same day surgery center Dr. Tea Zaman MD -[facility] Start: 08-02-2024 End: 08-02-2024 ambulatory Tea Zaman Facility:[facility] Start: 07-24-2024 ambulatory Zebulun Beam VSC Facili ty:[facility] Start: 07-23-2024 End: 07-23-2024 ambulatory Zebulun Beam VSC Facility:[facility] Start: 07-17-2024 End: 07-17-2024 ambulatory Zebulun Beam VSC Facility:[facility] Start: 07-03-2024 End: 07-03-2024 ambulatory Tea Zaman Facility:[facility] Start: 06-29-2024 End: 06-29-2024 ambulatory Tea Ghazoul Facility:[facility] Start: 06-18-2024 End: 06-18-2024 ambulatory Luis De La Rosa VSC Facility:[facility] Start: 06-05-2024 End: 06-05-2024 ambulatory Jersey Beckett Facility:[facility] Procedures Date Procedure Procedure Detail Performing Clinician Start: 11-06-2024 CT of chest Santiagoaidenmichael Red am [facility] Work Phone: Plan of Treatment Date Care Activity Detail Author Start: 02-11-2025 ambulatory Ambulatory Facility:[facility] Start: 01-09-2025 Evaluation of diagnostic study results [facility] Start: 11-07-2024 Patient referral [facility] Work Phone: Start: 09-19-2024 Patient referral [facility] Work Phone: Start: 08-02-2024 Excision malignant lesion f/e/e/n/l >4.0 cm EXC F/E/E/N/L MAL+MRG >4 CM [facility] Start: 08-02-2024 Patient discharge [facility] CT Chest [facility] Patient referral [facility] Work Phone: Radiation therapy [facility] Radionuclide imaging of perfusion of myocardium under exercise stress [facility] US Heart [facility] Payers Date Payer Category Payer Self-pay 2024 Unknown [id number] Unknown [id number] Unknown [id number] 2.16.8 40.1.870886.3.579.2.462 Unknown [id number] 2.16.8 40.1.245101.3.579.2.462 Unknown [id number] 2.16.8 40.1.863222.3.579.2.462 Unknown [id number] 2.16.8 40.1.220375.3.579.2.462 Unknown [id number] 2.16.8 40.1.728900.3.579.2.462 Unknown [id number] 2.16.8 40.1.149079.3.579.2.462 Unknown [id number] 2.16.8 40.1.951566.3.579.2.462 Unknown [id number] 2.16.8 40.1.462646.3.579.2.462 Unknown [id number] 2.16.8 40.1.846748.3.579.2.462 Unknown [id number] 2.16.8 40.1.957945.3.579.2.462 Unknown [id number] 2.16.8 40.1.265584.3.579.2.462 Unknown [id number] 2.16.8 40.1.708536.3.579.2.462 Unknown [id number] 2.16.8 40.1.008812.3.579.2.462 Unknown [id number] 2.16.8 40.1.633673.3.579.2.462 Unknown [id number] 2.16.8 40.1.936595.3.579.2.462 Unknown [id number] 2.16.8 40.1.064982.3.579.2.462 Unknown [id number] 2.16.8 40.1.159340.3.579.2.462 Unknown [id number] 2.16.8 40.1.494839.3.579.2.462 Unknown [id number] 2.16.8 40.1.408816.3.579.2.462 Unknown [id number] 2.16.8 40.1.640126.3.579.2.462 Unknown [id number] 2.16.8 40.1.671697.3.579.2.462 Unknown [id number] 2.16.8 40.1.779051.3.579.2.462 Unknown [id number] 2.16.8 40.1.531887.3.579.2.462 Unknown [id number] 2.16.8 40.1.124310.3.579.2.462 Unknown [id number] 2.16.8 [id number] Unknown [id number] 2.16.8 40.1.068536.3.579.2.462 Unknown [id number] 2.16.8 40.1.331651.3.579.2.462 Unknown [id number] 2.16.8 40.1.064739.3.579.2.462 Unknown [id number] 2.16.8 40.1.060754.3.579.2.462 Unknown [id number] 2.16.8 40.1.221847.3.579.2.462 Unknown [id number] 2.16.8 40.1.891505.3.579.2.462 Unknown [id number] 2.16.8 40.1.761856.3.579.2.462 Unknown [id number] 2.16.8 40.1.743344.3.579.2.462 Unknown [id number] 2.16.8 40.1.627864.3.579.2.462 Unknown [id number] 2.16.8 40.1.322844.3.579.2.462 Unknown [id number] 2.16.8 40.1.698631.3.579.2.462 Unknown [id number] 2.16.8 40.1.271473.3.579.2.462 Unknown [id number] 2.16.8 40.1.672257.3.579.2.462 Unknown [id number] 2.16.8 40.1.862528.3.579.2.462 Unknown [id number] 2.16.8 40.1.970191.3.579.2.462 Unknown [id number] 2.16.8 40.1.858681.3.579.2.462 Social History Date Type Detail Facility Start[facility] 11-06-[facility]24 [facility] Start: 1960 Sex Assigned At Male [facility] Goals Date Patient Goal Desired Activity /State Mental Status Date Assessment Result Facility 08-02-2024 Cognitive function Voice/Name [facility] Work Phone: Clinical Notes 06-29-2024 to 12-12-2024 Note Date & Type Note Facility 12-12-2024 Progress note [facility] 11-21-2024 Progress note [facility] 11-21-2024 Progress note Note Date/Time November 21, 2024 9:09am [facility] [address] [place] [address] OFFICE VISIT Date of Service: 11/21/24840 MR#: [id number] Acct: [id number] Name: MIGUEL LOVE Rep #: [id number] : 1960 From: Jorge ackerman DO Age/Sex: 64/M Location: [facility] [place] Status: Signed Intake Vital Signs 10/17/24 09:04 11/21/24 08:43 Height 5 ft 9 in 5 ft 9 in Weight: 143 lb 1 oz BMI 21.1 BP 151/79 H Blood Pressure Location Lt brachial Position Sitting Respiration 16 Pulse 81 Pulse Source Monitor Temp 98.6 F Temperature Source Temporal Artery Pulse Oximetry (%) 100 Oxygen Delivery Method room air Intake Visit Reasons: OTV Is patient in pain?: No Allergies No Known Allergies Allergy (Verified 11/21/24 08:45) Medications ?Medication ?Instructions ?Recorded ?Confirmed ?Type lisinopril 20 mg tablet 20 mg PO QDAY 08/14/2411/21 History silver sulfadiazine 1 % topical 1 applic topical DAILY #20 grams 08/14/24 11/21/24 Rx cream (Silvadene) Have you fallen in the past year?: No PFSH PFSH Medical History Coronary artery calcification Tobacco use disorder, continuous Encounter for screening for malignant neoplasm of lung Loss of hearing Wears glasses Smoker Hypertension History of hearing problem History of back problems Home Medications ?Medication ?Instructions ?Recorded ?Last Taken ?Type lisinopril 20 mg tablet 20 mg PO QDAY 08/14/24 Unkno wn History silver sulfadiazine 1 % topical 1 applic topical DAILY #20 grams 08/14/24 Unknown Rx cream (Silvadene) Allergy/AdvReac Type Severity Reaction Status Date / Time No Known Allergies Allergy Verified 11/21/24 08:45 Family History Father Cancer Mother Bowel disease Surgical History History of excision of mass History of inguinal hernia repair History of cataract extraction with lens replacement (~2021) Social History Smoking Status: Current every day smoker tobacco type: cigarettes Tobacco: How many years used: 50 alcohol intake: current alcohol intake frequency: holidays/special occasions only substance use type: does not use additional social history: pt denies aspirin and ibuprofen use, pt denies vaping, denies marijuana use, denies edibles. 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 Plan: Plan was made to complete adjuvant radiation therapy to the postop bed on the nose consisting of 6600 cGy delivered in 33 fractions using a .decimal bolus. Treatment Data: Treatment Site: nose Current total dose/Total dose planned: 3400 cGy / 6600 cGy Fraction number: Chemotherapy: none Subjective: Pain: 0 / 10 Fatigue: mild Skin: moderate erythema, some dry desquamation, no rash ENT: vision stable, mild conjunctival irritation/tearing some increased nasal congestion, occasional morning nose bleed Objective: Weight: 143 lbs 1 oz Physical Exam: Gen: NAD Skin: moderate erythema, some dry desquamation, no rash Assessment & Plan Assessment/Plan (1) Squamous cell carcinoma of nose: PLAN: Plan Assessment: Tolerating treatment well overall.? I reviewed and approved all treatment associated imaging. Fatigue: mild Skin: grade 2 erythema Eye irritation, possibly from lotion, planning eye drops prn Plan: Continue treatment as planned.? I have reviewed potential treatment associated toxicities as well as timing for resolution and management. Reviewed skin care instructions, lotion bid Reviewed Flonase, saline rinses Follow up next week or sooner if needed. Thank you for allowing me to participate in the management and care of your patient. If I may answer any questions in the interim, please do not hesitate tocontact me at any time. Jorge Curtis DO, MS Contact Officer, Department of Radiation Oncology [facility] Coding Level of Care Code Radiation Tx Management x5 Diagnoses Squamous cell carcinoma of nose C44.321 11/21/24 0909 <Electronically signed by Jorge Curtis DO> Date _ Jorge Curtis DO Cosigner Signature: Date (if applicable) CC: ~ [facility] Work Phone: [phone]) 859-203703-12-2025 Evaluation note* Diagnosis Onset Date Resolution Status Admit Date Nicotine dependence chronic September 19, 2024 8:53am Squamous cell carcinoma of nose reso lved September 19, 2024 8:53am Squamous cell carcinoma of nose reso lved October 08, 2024 8:41am Squamous cell carcinoma of nose reso lved October 17, 2024 9:00am Squamous cell carcinoma of nose reso lved October 31, 2024 9:16am Coronary artery calcification acute November 06, 2024 1:23pm Tobacco use disorder, continuous chronic November 06, 2024 1:23pm Encounter for screening for malignant neoplasm of lung resolved November 06, 2024 1:23pm Squamous cell carcinoma of nose reso lved November 07, 2024 8:29am Squamous cell carcinoma of nose reso lved November 14, 2024 8:31am Squamous cell carcinoma of nose reso lved November 21, 2024 8:29am Squamous cell carcinoma of nose reso lved November 28, 2024 8:29am Squamous cell carcinoma of nose reso lved December 05, 2024 8:33am Squamous cell carcinoma of nose reso lved December 12, 2024 8:30am [facility] Work Phone: 1(440) 343-605803-12-2025 Evaluation note* Diagnosis Onset Date Resolution Status Admit Date Nicotine dependence chronic September 19, 2024 8:53am Squamous cell carcinoma of nose reso lved September 19, 2024 8:53am Squamous cell carcinoma of nose reso lved October 08, 2024 8:41am Squamous cell carcinoma of nose reso lved October 17, 2024 9:00am Squamous cell carcinoma of nose reso lved October 31, 2024 9:16am Coronary artery calcification acute November 06, 2024 1:23pm Tobacco use disorder, continuous chronic November 06, 2024 1:23pm Encounter for screening for malignant neoplasm of lung resolved November 06, 2024 1:23pm Squamous cell carcinoma of nose reso lved November 07, 2024 8:29am Squamous cell carcinoma of nose reso lved November 14, 2024 8:31am Squamous cell carcinoma of nose reso lved November 21, 2024 8:29am Squamous cell carcinoma of nose reso lved November 28, 2024 8:29am Squamous cell carcinoma of nose reso lved December 05, 2024 8:33am Squamous cell carcinoma of nose reso lved December 12, 2024 8:30am Coronary artery calcification acute January 09, 2025 8:52am Hypertension chronic January 09 8:52am [facility] Work Phone: 1(847) 652-673202-04-2025 Evaluation note* Diagnosis Onset Date Resolution Status Admit Date Squamous cell carcinoma of nose resolved August 14 9:41am Nicotine dependence chronic Febru 2024 10:08am Delayed wound healing resolved Feb ruary 2024 10:08am Squamous cell carcinoma of nose resolved August 21 10:08am Nicotine dependence chronic Febru tosha2024 9:11am Delayed wound healing resolved Feb ruary 2024 9:11am Squamous cell carcinoma of nose resolved August 28 025 9:11am Nicotine dependence chronic Febru 2024 9:37am Delayed wound healing resolved Feb ruary 5 9:37am Squamous cell carcinoma of nose resolved September 05, 9:37am Nicotine dependence chronic September 19, 2024 8:53am Squamous cell carcinoma of nose resolved September 19, 2024 8:53am Squamous cell carcinoma of nose resolved October 08, 2024 8:41am Squamous cell carcinoma of nose resolved October 17, 2024 9:00am Squamous cell carcinoma of nose resolved October 31, 2024 9:16am Coronary artery calcification acute November 06, 2024 1:23pm Tobacco use disorder, continuous chronic November 06, 2024 1:23pm Encounter for screening for malignant neoplasm of lung resolved November 06, 2024 1:23pm Squamous cell carcinoma of nose resolved November 07, 2024 8:29am Squamous cell carcinoma of nose resolved November 14, 2024 8: 31am Squamous cell carcinoma of nose resolved November 21, 2024 8 :29am Squamous cell carcinoma of nose resolved November 28, 2024 8 :29am Squamous cell carcinoma of nose resolved December 05, 2024 8 :33am Squamous cell carcinoma of nose resolved December 12, 2024 8 :30am [facility] Work Phone: 1([phone]) 836-302801-28-2025 Evaluation note* Diagnosis Onset Date Resolution Status Admit Date Squamous cell cancer of skin of nose acute August 07 11:10am Squamous cell carcinoma of nose acut e August 14, 2024 9:41am Delayed wound healing acute Feb ru2024 10:08am Nicotine dependence acute Febru 2024 10:08am Squamous cell carcinoma of nose acut e August 21, 2024 10:08am Delayed wound healing acute Feb ru2024 9:11am Nicotine dependence acute Febru 2024 9:11am Squamous cell carcinoma of nose acut e August 28, 2024 9:11am Delayed wound healing acute Feb ru2024 9:37am Nicotine dependence acute Febru 2024 9:37am Squamous cell carcinoma of nose acut e September 05, 2024 9:37am Nicotine dependence acute September 19, 2024 8:53am Squamous cell carcinoma of nose acut e September 19, 2024 8:53am Squamous cell carcinoma of nose acut e October 08, 2024 8:41am Squamous cell carcinoma of nose acut e October 17, 2024 9:00am Squamous cell carcinoma of nose acut e October 31, 2024 9:16am Coronary artery calcification acute November 06, 2024 1:23pm Encounter for screening for malignant neoplasm of lung acute November 06, 2024 1:23pm Tobacco use disorder, continuous acute November 06, 2024 1:23pm Squamous cell carcinoma of nose acut e November 07, 2024 8:29am Squamous cell carcinoma of nose acut e November 14, 2024 8:31am Squamous cell carcinoma of nose acut e November 21, 2024 8:29am Squamous cell carcinoma of nose acut e November 28, 2024 8:29am [facility] Work Phone: 1(449) 617-448601-23-2025 Evaluation note* Diagnosis Onset Date Resolution Status Admit Date Squamous cell cancer of skin of nose acute August 02 5:44am Squamous cell cancer of skin of nose acute August 07 11:10am Squamous cell carcinoma of nose acut e August 14, 2024 9:41am Delayed wound healing acute Feb ru2024 10:08am Nicotine dependence acute u 2024 10:08am Squamous cell carcinoma of nose acut e August 21, 2024 10:08am Delayed wound healing acute Feb ruary 2024 9:11am Nicotine dependence acute u 2024 9:11am Squamous cell carcinoma of nose acut e August 28, 2024 9:11am Delayed wound healing acute Feb ru2024 9:37am Nicotine dependence acute Febru 2024 9:37am Squamous cell carcinoma of nose acut e September 05, 2024 9:37am Nicotine dependence acute September 19, 2024 8:53am Squamous cell carcinoma of nose acut e September 19, 2024 8:53am Squamous cell carcinoma of nose acut e October 08, 2024 8:41am Squamous cell carcinoma of nose acut e October 17, 2024 9:00am Squamous cell carcinoma of nose acut e October 31, 2024 9:16am Coronary artery calcification acute Olivia 29th, 2025 1:23pm Encounter for screening for malignant neoplasm of lung acute November 06, 2024 1:23pm Tobacco use disorder, continuous acute November 06, 2024 1:23pm Squamous cell carcinoma of nose acut e November 07, 2024 8:29am Squamous cell carcinoma of nose acut e November 14, 2024 8:31am Squamous cell carcinoma of nose acut e November 21, 2024 8:29am [facility] Work Phone: 1(760) 654-149401-23-2025 [facility] Medical Records Department [address] [place] [address] History Physical Exam 08/02/24 0708 MR#: [id number] Acct: [id number] Name: MIGUEL LOVENE Rep #: [id number] : 1960 63 From: Tea Zaman MD PCP: Luis De La Rosa REEL CUTTER-C Status:[facility] Location: [facility]02- History and Physical Date of Admission: 08/02/24 The patient is examined and there are no changes to the H P of 07/23/24. Pt for excision SCC nose with FS and possible rotation flap. Informed consent obtained. Pt marked in the pre-op area. Assessment Plan Assessment/Plan (1) Squamous cell cancer of skin of nose: PLAN: Plan Pt for excision SCC nose with FS and wound closure. 08/02/2412 Cosigner Signature (if applicable): CC: Dr. Tea Zaman MD; Luis MONK REEL CUTTER-C [facility] Medical Records Department [address] [place] [address] History Physical Exam 06/29/24 1043 MR#: [id number] Acct: [id number] Name: MIGUEL LOVE AASHISH Rep #: [id number] : 1960 63 From: Tea Zaman MD PCP: Luis De La Rosa REEL CUTTER-C Status:[facility] Location: [facility]08-1 History and Physical Date of Admission: 06/29/24 The patient is examined and there are no changes to the H P dated 06/18/2024. He presents for excision of a subcutaneous cyst of the right cheek, excision of the lesion of the nose and excision of a neoplasm of the left arm. The patient is marked in the preop holding area and informed consent obtained. Assessment Plan Assessment/Plan (1) Neoplasm of uncertain behavior of skin of upper extremity: (2) Neoplasm of uncertain behavior of skin of nose: (3) Sebaceous cyst: PLAN: Plan Patient for excision cyst of the right cheek, Nose, And left arm 06/29/24 1045 Cosigner Signature (if applicable): CC: Dr. Tea Zaman MD; [facility] REEL CUTTER-C Beam [facility]ignedWC[facility] HospitalProgress note Author Jorge Curtis [facility] Note Date/Time December 12, 2024 9:26a m [facility] [address] [place] [address] [place] [address] OFFICE VISIT Date of Service: 12/12/24906 MR#: [id number] Acct: [id number] Name: MIGUEL LOVE Rep #: [id number] : 1960 From: Jorge ackerman DO Age/Sex: 64/M Location: [facility] [place] Status: Signed Intake Vital Signs 10/17/24 09:04 12/12/24 09:09 Height 5 ft 9 in 5 ft 9 in Weight: 144 lb 3 oz BMI 21.2 BP 145/80 H Blood Pressure Location Lt brachial Position Sitting Respiration 16 Pulse 70 Pulse Source Monitor Temp 98.6 F Temperature Source Temporal Artery Pulse Oximetry (%) 97 Oxygen Delivery Method room air Intake Visit Reasons: OTV Is patient in pain?: No Allergies No Known Allergies Allergy (Verified 12/12/24 09:13) Medications ?Medication ?Instructions ?Recorded ?Confirmed ?Type lisinopril 20 mg tablet 20 mg PO QDAY 08/14/2412/12 History silver sulfadiazine 1 % topical 1 applic topical DAILY #20 grams 08/14/24 12/12/24 Rx cream (Silvadene) Have you fallen in the past year?: No PFSH PFS Medical History Atherosclerosis of coronary artery of [place] heart without angina pectoris Coronary artery calcification Tobacco use disorder, continuous Loss of hearing Hypertension History of back problems Home Medications ?Medication ?Instructions ?Recorded ?Last Taken ?Type lisinopril 20 mg tablet 20 mg PO QDAY 08/14/24 Unkno wn History silver sulfadiazine 1 % topical 1 applic topical DAILY #20 grams 08/14/24 Unkn own Rx cream (Silvadene) Allergy/AdvReac Type Severity Reaction Status Date / Time No Known Allergies Allergy Verified 12/12/24 09:13 Family History Father Cancer Mother Bowel disease Surgical History History of excision of mass History of inguinal hernia repair History of cataract extraction with lens replacement (~2021) Social History Smoking Status: Current every day smoker tobacco type: cigarettes Tobacco: How many years used: 50 alcohol intake: current alcohol intake frequency: holidays/special occasions only substance use type: does not use additional social history: pt denies aspirin and ibuprofen use, pt denies vaping, denies marijuana use, denies edibles. 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 Plan: Plan was made to complete adjuvant radiation therapy to the postop bed on the nose consisting of 6600 cGy delivered in 33 fractions using a .decimal bolus. Treatment Data: Treatment Site: nose Current total dose/Total dose planned: 6200 cGy / 6600 cGy Fraction number: Chemotherapy: none Subjective: Pain: 0 / 10 Fatigue: mild Skin: moderate erythema, some dry desquamation, no rash ENT: vision stable, mild conjunctival irritation/tearing some increased nasal congestion, occasional morning nose bleed Objective: Weight: 144 lbs Physical Exam: Gen: NAD Skin: moderate erythema, some dry desquamation, no rash, mild conjunctival erythema Assessment & Plan Assessment/Plan (1) Squamous cell carcinoma of nose: PLAN: Plan Assessment: Tolerating treatment well overall.? I reviewed and approved all treatment associated imaging. Fatigue: mild Skin: grade 2 erythema, Aquaphor, john Eye irritation improved this week, possibly from lotion, planning eye drops prn Plan: Continue treatment as planned.? Will finish Tuesday I have reviewed potential treatment associated toxicities as well as timing for resolution and management. Reviewed skin care instructions, lotion bid Reviewed Flonase, saline rinses Follow up in one month or sooner if needed. Thank you for allowing me to participate in the management and care of your patient. If I may answer any questions in the interim, please do not hesitate tocontact me at any time. Jorge Curtis DO, MS Contact Officer, Department of Radiation Oncology [facility] Coding Level of Care Code Radiation Tx Management x5 Diagnoses Squamous cell carcinoma of nose C44.321 12/12/24 0926 <Electronically signed by Jorge Curtis DO> Date _ Jorge Curtis DO Cosigner Signature: Date (if applicable) CC: ~ [facility] Work Phone: Chief Complaint and Reason for Visit Chief Complaint Admit Date Excision squamous cell carcinoma nose wi th frozen August 02, 2024 5:44am Excision squamous cell carcinoma nose wi th frozen August 02, 2024 7:08am post op August 07, 2024 1 1:10am post op August 14, 2024 9 :41am 1 W F/U August 21, 2024 10:08am 1 W FU August 28, 2024 9:11am 1 W FU September 05, 2024 9:37am 2 W FU September 19, 2024 8:5 3am Amb Documentation September 25, 2024 11: 56am SQAMOUS CELL - NOSE October 08, 2024 8:4 1am 4 w fu October 17, 2024 9:00 am OTV October 31, 2024 9:1 6am Lung Cancer Screening November 06, 2024 1 :23pm SCREENING November 06, 2024 2:0 9pm OTV November 07, 2024 8:2 9am OTV November 14, 2024 8:31am OTV November 21, 2024 8:29a m . November 21, 2024 8:40a m Reason for Visit Admit Date Squamous cell cancer of skin of nose [facility] 2024 5:44am Squamous cell cancer of skin of nose [facility] 2024 11:10am Squamous cell carcinoma of nose August 14, 2024 9:41am Delayed wound healing August 21 10:08am Nicotine dependence August 21, 2024 10:08am Squamous cell carcinoma of nose August 21, 2024 10:08am Delayed wound healing August 28 9:11am Nicotine dependence August 28, 2024 9:11am Squamous cell carcinoma of nose August 28, 2024 9:11am Delayed wound healing September 05 9:37am Nicotine dependence September 05, 2024 9:37am Squamous cell carcinoma of nose September 05, 2024 9:37am Nicotine dependence September 19, 2024 8:5 3am Squamous cell carcinoma of nose September 192024 8:53am Squamous cell carcinoma of nose October 082024 8:41am Squamous cell carcinoma of nose October 9:00am Squamous cell carcinoma of nose October 312024 9:16am Coronary artery calcification October 1:23pm Encounter for screening for malignant ne oplasm of lung November 06, 2024 1:23pm Tobacco use disorder, continuous October 102024 1:23pm Squamous cell carcinoma of nose November 072024 8:29am Squamous cell carcinoma of nose November 14, 2024 8:31am Squamous cell carcinoma of nose November 8:29am Chief Complaint Admit Date Excision squamous cell carcinoma nose wi th frozen August 02, 2024 5:44am Excision squamous cell carcinoma nose wi th frozen August 02, 2024 7:08am post op August 07, 2024 1 1:10am post op August 14, 2024 9 :41am 1 W F/U August 21, 2024 10:08am 1 W FU August 28, 2024 9:11am 1 W FU September 05, 2024 9:37am 2 W FU September 19, 2024 8:5 3am Amb Documentation September 25, 2024 11: 56am SQAMOUS CELL - NOSE October 08, 2024 8:4 1am 4 w fu October 17, 2024 9:00 am OTV October 31, 2024 9:1 6am Lung Cancer Screening November 06, 2024 1 :23pm SCREENING November 06, 2024 2:0 9pm OTV November 07, 2024 8:2 9am OTV November 14, 2024 8:31am OTV November 21, 2024 8:29a m OTV November 28, 2024 8:29a m . November 28, 2024 8:40a m Chief Complaint Admit Date post op August 07, 2024 1 1:10am post op August 14, 2024 9 :41am 1 W F/U August 21, 2024 10:08am 1 W FU August 28, 2024 9:11am 1 W FU September 05, 2024 9:37am 2 W FU September 19, 2024 8:5 3am Amb Documentation September 25, 2024 11: 56am SQAMOUS CELL - NOSE October 08, 2024 8:4 1am 4 w fu October 17, 2024 9:00 am OTV October 31, 2024 9:1 6am Lung Cancer Screening November 06, 2024 1 :23pm SCREENING November 06, 2024 2:0 9pm OTV November 07, 2024 8:2 9am OTV November 14, 2024 8:31am OTV November 21, 2024 8:29a m OTV November 28, 2024 8:29a m OTV December 05, 2024 8:33a m . December 05, 2024 8:40a m Reason for Visit Admit Date Squamous cell cancer of skin of nose [facility] 2024 11:10am Squamous cell carcinoma of nose August 14, 2024 9:41am Delayed wound healing August 21 10:08am Nicotine dependence August 21, 2024 10:08am Squamous cell carcinoma of nose August 21, 2024 10:08am Delayed wound healing August 28 9:11am Nicotine dependence August 28, 2024 9:11am Squamous cell carcinoma of nose August 28, 2024 9:11am Delayed wound healing September 05 9:37am Nicotine dependence September 05, 2024 9:37am Squamous cell carcinoma of nose September 05, 2024 9:37am Nicotine dependence September 19, 2024 8:5 3am Squamous cell carcinoma of nose September 192024 8:53am Squamous cell carcinoma of nose October 082024 8:41am Squamous cell carcinoma of nose October 9:00am Squamous cell carcinoma of nose October 312024 9:16am Coronary artery calcification October 1:23pm Encounter for screening for malignant ne oplasm of lung November 06, 2024 1:23pm Tobacco use disorder, continuous October 102024 1:23pm Squamous cell carcinoma of nose November 072024 8:29am Squamous cell carcinoma of nose November 14, 2024 8:31am Squamous cell carcinoma of nose November 8:29am Squamous cell carcinoma of nose November 8:29am Chief Complaint Admit Date post op August 14, 2024 9 :41am 1 W F/U August 21, 2024 10:08am 1 W FU August 28, 2024 9:11am 1 W FU September 05, 2024 9:37am 2 W FU September 19, 2024 8:5 3am Amb Documentation September 25, 2024 11: 56am SQAMOUS CELL - NOSE October 08, 2024 8:4 1am 4 w fu October 17, 2024 9:00 am OTV October 31, 2024 9:1 6am Lung Cancer Screening November 06, 2024 1 :23pm SCREENING November 06, 2024 2:0 9pm OTV November 07, 2024 8:2 9am OTV November 14, 2024 8:31am OTV November 21, 2024 8:29a m OTV November 28, 2024 8:29a m OTV December 05, 2024 8:33a m Amb Documentation December 10, 2024 4:02p m OTV December 12, 2024 8:30a m . December 12, 2024 8:40a m Reason for Visit Admit Date Squamous cell carcinoma of nose August 14, 2024 9:41am Nicotine dependence August 21, 2024 10:08am Delayed wound healing August 21 10:08am Squamous cell carcinoma of nose August 21, 2024 10:08am Nicotine dependence August 28, 2024 9:11am Delayed wound healing August 28 9:11am Squamous cell carcinoma of nose August 28, 2024 9:11am Nicotine dependence September 05, 2024 9:37am Delayed wound healing September 05 9:37am Squamous cell carcinoma of nose September 05, 2024 9:37am Nicotine dependence September 19, 2024 8:5 3am Squamous cell carcinoma of nose September 192024 8:53am Squamous cell carcinoma of nose October 082024 8:41am Squamous cell carcinoma of nose October 9:00am Squamous cell carcinoma of nose October 312024 9:16am Coronary artery calcification October 1:23pm Tobacco use disorder, continuous October 102024 1:23pm Encounter for screening for malignant ne oplasm of lung November 06, 2024 1:23pm Squamous cell carcinoma of nose November 072024 8:29am Squamous cell carcinoma of nose November 14, 2024 8:31am Squamous cell carcinoma of nose November 8:29am Squamous cell carcinoma of nose November 8:29am Squamous cell carcinoma of nose November 8:33am Squamous cell carcinoma of nose December 8:30am Chief Complaint Admit Date 2 W FU September 19, 2024 8:5 3am Amb Documentation September 25, 2024 11: 56am SQAMOUS CELL - NOSE October 08, 2024 8:4 1am 4 w fu October 17, 2024 9:00 am OTV October 31, 2024 9:1 6am Lung Cancer Screening November 06, 2024 1 :23pm SCREENING November 06, 2024 2:0 9pm OTV November 07, 2024 8:2 9am OTV November 14, 2024 8:31am OTV November 21, 2024 8:29a m OTV November 28, 2024 8:29a m OTV December 05, 2024 8:33a m Amb Documentation December 10, 2024 4:02p m OTV December 12, 2024 8:30a m . December 14, 2024 8:40a m CORONARY CALCIFICATIONS (ALISON) January 09, 2025 8:52am Reason for Visit Admit Date Nicotine dependence September 19, 2024 8:5 3am Squamous cell carcinoma of nose September 192024 8:53am Squamous cell carcinoma of nose October 082024 8:41am Squamous cell carcinoma of nose October 9:00am Squamous cell carcinoma of nose October 312024 9:16am Coronary artery calcification October 1:23pm Tobacco use disorder, continuous October 102024 1:23pm Encounter for screening for malignant ne oplasm of lung November 06, 2024 1:23pm Squamous cell carcinoma of nose November 072024 8:29am Squamous cell carcinoma of nose November 14, 2024 8:31am Squamous cell carcinoma of nose November 8:29am Squamous cell carcinoma of nose November 8:29am Squamous cell carcinoma of nose November 8:33am Squamous cell carcinoma of nose December 8:30am Chief Complaint Admit Date 2 W FU September 19, 2024 8:5 3am Amb Documentation September 25, 2024 11: 56am SQAMOUS CELL - NOSE October 08, 2024 8:4 1am 4 w fu October 17, 2024 9:00 am OTV October 31, 2024 9:1 6am Lung Cancer Screening November 06, 2024 1 :23pm SCREENING November 06, 2024 2:0 9pm OTV November 07, 2024 8:2 9am OTV November 14, 2024 8:31am OTV November 21, 2024 8:29a m OTV November 28, 2024 8:29a m OTV December 05, 2024 8:33a m Amb Documentation December 10, 2024 4:02p m OTV December 12, 2024 8:30a m . December 14, 2024 8:40a m CORONARY CALCIFICATIONS (ALISON) January 09, 2025 8:52am 1 MONTH F/U POST RT January 14, 2025 8:50a m Reason for Visit Admit Date Nicotine dependence September 19, 2024 8:5 3am Squamous cell carcinoma of nose September 192024 8:53am Squamous cell carcinoma of nose October 082024 8:41am Squamous cell carcinoma of nose October 9:00am Squamous cell carcinoma of nose October 312024 9:16am Coronary artery calcification October 1:23pm Tobacco use disorder, continuous October 102024 1:23pm Encounter for screening for malignant ne oplasm of lung November 06, 2024 1:23pm Squamous cell carcinoma of nose November 072024 8:29am Squamous cell carcinoma of nose November 14, 2024 8:31am Squamous cell carcinoma of nose November 8:29am Squamous cell carcinoma of nose November 8:29am Squamous cell carcinoma of nose November 8:33am Squamous cell carcinoma of nose December 8:30am Coronary artery calcification January 09, 2025 8:52am Hypertension January 09, 2025 8:52a m Family History No Family History Records Found Relationship Condition Age at Onset Recorded Date/T aissatou father Malignant neoplasm Unknown mother Disorder of intestine Unknown Advance Directives No Advanced Directives Records Found Advance Directive Response Recorded Date/ Time Living Will No July 31 12:35pm Do you have a Healthcare Power of Template Maker? No July 31, 2024 12:35pm Summary Purpose Additional Source Comments Care Teams (unrecognized sec tion and content) Team Status: Active Member Role Status Dates Santiagobulun Beam VSC, REEL CUTTER-C Primary Care Provider Active Team Status: Inactive Member Role Status Dates Zebulun Beam VSC, REEL CUTTER-C Primary Care Provider Active Start: August 02, 2024 End: August 02, 2024 Dr. Tea Zaman MD Attending Provider Active Start: August 02, 2024 End: August 02, 2024 Dr. Tea Zaman MD Referring Provider Active Start: August 02, 2024 End: August 02, 2024 Team Status: Active Member Role Status Dates Santiagobulutyron Beam VSC, REEL CUTTER-C Primary Care Provider Active Start: August 02, 2024 Dr. Tea Zaman MD Attending Provider Active Start: August 02, 2024 Dr. Tea Zaman MD Referring Provider Active Start: August 02, 2024 Dr. Tea Zaman MD Other Provider Active St art: August 02, 2024 Team Status: Inactive Member Role Status Dates Zebulun Beam VSC, REEL CUTTER-C Primary Care Provider Active Start: August 07, 2024 End: August 07, 2024 Zebulun Beam VSC, REEL CUTTER-C Referring Provider Active Start: August 07, 2024 End: August 07, 2024 Dr. Tea Zaman MD Attending Provider Active Start: August 07, 2024 End: August 07, 2024 Team Status: Inactive Member Role Status Dates Zebulun Beam VSC, REEL CUTTER-C Primary Care Provider Active Start: August 14, 2024 End: August 14, 2024 Zebulun Beam VSC, REEL CUTTER-C Referring Provider Active Start: August 14, 2024 End: August 14, 2024 Dr. Tea Zaman MD Attending Provider Active Start: August 14, 2024 End: August 14, 2024 Team Status: Inactive Member Role Status Dates Zebulun Beam VSC, REEL CUTTER-C Primary Care Provider Active Start: August 21, 2024 End: August 21, 2024 Zebulun Beam VSC, REEL CUTTER-C Referring Provider Active Start: August 21, 2024 End: August 21, 2024 Dr. Tea Zaman MD Attending Provider Active Start: August 21, 2024 End: August 21, 2024 Team Status: Inactive Member Role Status Dates Zebulun Beam VSC, REEL CUTTER-C Primary Care Provider Active Start: August 28, 2024 End: August 28, 2024 Zebulun Beam VSC, REEL CUTTER-C Referring Provider Active Start: August 28, 2024 End: August 28, 2024 Dr. Tea Zaman MD Attending Provider Active Start: August 28, 2024 End: August 28, 2024 Team Status: Inactive Member Role Status Dates Zebulun Beam VSC, REEL CUTTER-C Primary Care Provider Active Start: September 05, 2024 End: September 05, 2024 Zebulun Beam VSC, REEL CUTTER-C Referring Provider Active Start: September 05, 2024 End: September 05, 2024 Dr. Tea Zaman MD Attending Provider Active Start: September 05, 2024 End: September 05, 2024 Team Status: Inactive Member Role Status Dates Zebulun Beam VSC, REEL CUTTER-C Primary Care Provider Active Start: September 19, 2024 End: September 19, 2024 Zebulun Beam VSC, REEL CUTTER-C Referring Provider Active Start: September 19, 2024 End: September 19, 2024 Dr. Tea Zaman MD Attending Provider Active Start: September 19, 2024 End: September 19, 2024 Team Status: Active Member Role Status Dates Zebulun Beam VSC, REEL CUTTER-C Primary Care Provider Active Start: September 25, 2024 Ginette Castle NP, REEL CUTTER-C Attending Provider Active Start: September 25, 2024 Team Status: Inactive Member Role Status Dates Zebulun Beam VSC, REEL CUTTER-C Primary Care Provider Active Start: October 08, 2024 End: October 08, 2024 Dr. Jorge Curtis DO Attending Provider Active Start: October 08, 2024 End: October 08, 2024 Dr. Tea Zaman MD Referring Provider Active Start: October 08, 2024 End: October 08, 2024 Team Status: Active Member Role Status Dates Zebulun Beam VSC, REEL CUTTER-C Primary Care Provider Active Start: October 08, 2024 Dr. Jorge Curtis DO Attending Provider Active Start: October 08, 2024 Dr. Jorge Curtis DO Referring Provider Active Start: October 08, 2024 Team Status: Inactive Member Role Status Dates Zebulun Beam VSC, REEL CUTTER-C Primary Care Provider Active Start: October 17, 2024 End: October 17, 2024 Zebulun Beam VSC, REEL CUTTER-C Referring Provider Active Start: October 17, 2024 End: October 17, 2024 Dr. Tea Zaman MD Attending Provider Active Start: October 17, 2024 End: October 17, 2024 Team Status: Active Member Role Status Dates Zebulun Beam VSC, REEL CUTTER-C Primary Care Provider Active Start: October 22, 2024 Dr. Jorge Curtis DO Attending Provider Active Start: October 22, 2024 Dr. Jorge Curtis DO Referring Provider Active Start: October 22, 2024 Team Status: Active Member Role Status Dates Zebulun Beam VSC, REEL CUTTER-C Primary Care Provider Active Start: October 23, 2024 Dr. Jorge Curtis DO Attending Provider Active Start: October 23, 2024 Dr. Jorge Curtis DO Referring Provider Active Start: October 23, 2024 Team Status: Active Member Role Status Dates Zebulun Beam VSC, REEL CUTTER-C Primary Care Provider Active Start: October 24, 2024 Dr. Jorge Curtis DO Attending Provider Active Start: October 24, 2024 Dr. Jorge Curtis DO Referring Provider Active Start: October 24, 2024 Team Status: Active Member Role Status Dates Zebulun Beam VSC, REEL CUTTER-C Primary Care Provider Active Start: October 29, 2024 Dr. Jorge Curtis DO Attending Provider Active Start: October 29, 2024 Team Status: Inactive Member Role Status Dates Zebulun Beam VSC, REEL CUTTER-C Primary Care Provider Active Start: October 31, 2024 End: October 31, 2024 Zebulun Beam VSC, REEL CUTTER-C Referring Provider Active Start: October 31, 2024 End: October 31, 2024 Dr. Jorge Curtis DO Attending Provider Active Start: October 31, 2024 End: October 31, 2024 Team Status: Active Member Role Status Dates Zebulun Beam VSC, REEL CUTTER-C Primary Care Provider Active Start: October 31, 2024 Dr. Jorge Curtis DO Attending Provider Active Start: October 31, 2024 Team Status: Inactive Member Role Status Dates Zebulun Beam VSC, REEL CUTTER-C Primary Care Provider Active Start: November 06, 2024 End: November 06, 2024 Zebulun Beam VSC, REEL CUTTER-C Referring Provider Active Start: November 06, 2024 End: November 06, 2024 Radha Rosas REEL CUTTER, REEL CUTTER-C Attending Provider Active Start: November 06, 2024 End: November 06, 2024 Team Status: Inactive Member Role Status Dates Zebulun Beam VSC, REEL CUTTER-C Primary Care Provider Active Start: November 06, 2024 End: November 06, 2024 Radhaluis Rosas REEL CUTTER, REEL CUTTER-C Attending Provider Active Start: November 06, 2024 End: November 06, 2024 Radha Rosas REEL CUTTER, REEL CUTTER-C Referring Provider Active Start: November 06, 2024 End: November 06, 2024 Team Status: Inactive Member Role Status Dates Zebulun Beam VSC, REEL CUTTER-C Primary Care Provider Active Start: November 07, 2024 End: November 07, 2024 Zebulun Beam VSC, REEL CUTTER-C Referring Provider Active Start: November 07, 2024 End: November 07, 2024 Dr. Jorge Curtis DO Attending Provider Active Start: November 07, 2024 End: November 07, 2024 Team Status: Inactive Member Role Status Dates Zebulun Beam VSC, REEL CUTTER-C Primary Care Provider Active Start: November 14, 2024 End: November 14, 2024 Zebulun Beam VSC, REEL CUTTER-C Referring Provider Active Start: November 14, 2024 End: November 14, 2024 Dr. Jorge Curtis DO Attending Provider Active Start: November 14, 2024 End: November 14, 2024 Team Status: Inactive Member Role Status Dates Zebulun Beam VSC, REEL CUTTER-C Primary Care Provider Active Start: November 21, 2024 End: November 21, 2024 Zebulun Beam VSC, REEL CUTTER-C Referring Provider Active Start: November 21, 2024 End: November 21, 2024 Dr. Jorge Curtis DO Attending Provider Active Start: November 21, 2024 End: November 21, 2024 Team Status: Active Member Role Status Dates Zebulun Beam VSC, REEL CUTTER-C Primary Care Provider Active Start: November 21, 2024 Dr. Jorge Curtis DO Attending Provider Active Start: November 21, 2024 Dr. Jorge Curtis DO Referring Provider Active Start: November 21, 2024 Team Status: Active Member Role Status Dates Zebulun Beam VSC, REEL CUTTER-C Primary Care Provider Active Start: October 29, 2024 Dr. Jorge Curtis DO Attending Provider Active Start: October 29, 2024 Dr. Jorge Curtis DO Referring Provider Active Start: October 29, 2024 Team Status: Inactive Member Role Status Dates Zebulun Beam VSC, REEL CUTTER-C Primary Care Provider Active Start: November 28, 2024 End: November 28, 2024 Zebulun Beam VSC, REEL CUTTER-C Referring Provider Active Start: November 28, 2024 End: November 28, 2024 Dr. Jorge Curtis DO Attending Provider Active Start: November 28, 2024 End: November 28, 2024 Team Status: Active Member Role Status Dates Zebulun Beam VSC, REEL CUTTER-C Primary Care Provider Active Start: November 28, 2024 Dr. Jorge Curtis DO Attending Provider Active Start: November 28, 2024 Dr. Jorge Curtis DO Referring Provider Active Start: November 28, 2024 Team Status: Inactive Member Role Status Dates Zebulun Beam VSC, REEL CUTTER-C Primary Care Provider Active Start: October 31, 2024 End: October 31, 2024 Dr. Jorge Curtis DO Attending Provider Active Start: October 31, 2024 End: October 31, 2024 Dr. Jorge Curtis DO Referring Provider Active Start: October 31, 2024 End: October 31, 2024 Team Status: Active Member Role Status Dates Zebulun Beam VSC, REEL CUTTER-C Primary Care Provider Active Start: October 31, 2024 Dr. Jorge Curtis DO Attending Provider Active Start: October 31, 2024 Dr. Jorge Curtis DO Referring Provider Active Start: October 31, 2024 Team Status: Inactive Member Role Status Dates Zebulun Beam VSC, REEL CUTTER-C Primary Care Provider Active Start: December 05, 2024 End: December 05, 2024 Zebulun Beam VSC, REEL CUTTER-C Referring Provider Active Start: December 05, 2024 End: December 05, 2024 Dr. Jorge Curtis DO Attending Provider Active Start: December 05, 2024 End: December 05, 2024 Team Status: Active Member Role Status Dates Zebulun Beam VSC, REEL CUTTER-C Primary Care Provider Active Start: December 05, 2024 Dr. Jorge Curtis DO Attending Provider Active Start: December 05, 2024 Dr. Jorge Curtis DO Referring Provider Active Start: December 05, 2024 Team Status: Inactive Member Role Status Dates Zebulun Beam VSC, REEL CUTTER-C Primary Care Provider Active Start: November 07, 2024 End: November 07, 2024 Dr. Jorge Curtis DO Attending Provider Active Start: November 07, 2024 End: November 07, 2024 Dr. Jorge Curtis DO Referring Provider Active Start: November 07, 2024 End: November 07, 2024 Team Status: Active Member Role Status Dates Zebulun Beam VSC, REEL CUTTER-C Primary Care Provider Active Start: December 10, 2024 Dr. Jorge Curtis DO Attending Provider Active Start: December 10, 2024 Team Status: Inactive Member Role Status Dates Zebulun Beam VSC, REEL CUTTER-C Primary Care Provider Active Start: December 12, 2024 End: December 12, 2024 Zebulun Beam VSC, REEL CUTTER-C Referring Provider Active Start: December 12, 2024 End: December 12, 2024 Dr. Jorge Curtis DO Attending Provider Active Start: December 12, 2024 End: December 12, 2024 Team Status: Active Member Role Status Dates Zebulun Beam VSC, REEL CUTTER-C Primary Care Provider Active Start: December 12, 2024 Dr. Jorge Curtis DO Attending Provider Active Start: December 12, 2024 Dr. Jorge Curtis DO Referring Provider Active Start: December 12, 2024 Team Status: Active Member Role/Relationship Status Dates Zebulun Beam VSC, REEL CUTTER-C Primary Care Provider Active Team Status: Inactive Member Role/Relationship Status Dates Zebulun Beam VSC, REEL CUTTER-C Primary Care Provider Active Start: September 19, 2024 End: September 19, 2024 Zebulun Beam VSC, REEL CUTTER-C Referring Provider Active Start: September 19, 2024 End: September 19, 2024 Dr. Tea Zaman MD Attending Provider Active Start: September 19, 2024 End: September 19, 2024 Team Status: Active Member Role/Relationship Status Dates Zebulun Beam VSC, REEL CUTTER-C Primary Care Provider Active Start: September 25, 2024 Gniette Castle NP, REEL CUTTER-C Attending Provider Active Start: September 25, 2024 Team Status: Inactive Member Role/Relationship Status Dates Zebulun Beam VSC, REEL CUTTER-C Primary Care Provider Active Start: October 08, 2024 End: October 08, 2024 Dr. Jorge Curtis DO Attending Provider Active Start: October 08, 2024 End: October 08, 2024 Dr. Tea Zaman MD Referring Provider Active Start: October 08, 2024 End: October 08, 2024 Team Status: Active Member Role/Relationship Status Dates Zebulun Beam VSC, REEL CUTTER-C Primary Care Provider Active Start: October 08, 2024 Dr. Jorge Curtis DO Attending Provider Active Start: October 08, 2024 Dr. Jorge Curtis DO Referring Provider Active Start: October 08, 2024 Team Status: Inactive Member Role/Relationship Status Dates Zebulun Beam VSC, REEL CUTTER-C Primary Care Provider Active Start: October 17, 2024 End: October 17, 2024 Zebulun Beam VSC, REEL CUTTER-C Referring Provider Active Start: October 17, 2024 End: October 17, 2024 Dr. Tea Zaman MD Attending Provider Active Start: October 17, 2024 End: October 17, 2024 Team Status: Active Member Role/Relationship Status Dates Zebulun Beam VSC, REEL CUTTER-C Primary Care Provider Active Start: October 22, 2024 Dr. Jorge Curtis DO Attending Provider Active Start: October 22, 2024 Dr. Jorge Curtis DO Referring Provider Active Start: October 22, 2024 Team Status: Active Member Role/Relationship Status Dates Zebulun Beam VSC, REEL CUTTER-C Primary Care Provider Active Start: October 23, 2024 Dr. Jorge Curtis DO Attending Provider Active Start: October 23, 2024 Dr. Jorge Curtis DO Referring Provider Active Start: October 23, 2024 Team Status: Active Member Role/Relationship Status Dates Zebulun Beam VSC, REEL CUTTER-C Primary Care Provider Active Start: October 24, 2024 Dr. Jorge Curtis DO Attending Provider Active Start: October 24, 2024 Dr. Jorge Curtis DO Referring Provider Active Start: October 24, 2024 Team Status: Active Member Role/Relationship Status Dates Zebulun Beam VSC, REEL CUTTER-C Primary Care Provider Active Start: October 29, 2024 Dr. Jorge Curtis DO Attending Provider Active Start: October 29, 2024 Dr. Jorge Curtis DO Referring Provider Active Start: October 29, 2024 Team Status: Inactive Member Role/Relationship Status Dates Zebulun Beam VSC, REEL CUTTER-C Primary Care Provider Active Start: October 31, 2024 End: October 31, 2024 Dr. Jorge Curtis DO Attending Provider Active Start: October 31, 2024 End: October 31, 2024 Dr. Jorge Curtis DO Referring Provider Active Start: October 31, 2024 End: October 31, 2024 Team Status: Active Member Role/Relationship Status Dates Zebulun Beam VSC, REEL CUTTER-C Primary Care Provider Active Start: October 31, 2024 Dr. Jorge Curtis DO Attending Provider Active Start: October 31, 2024 Dr. Jorge Curtis DO Referring Provider Active Start: October 31, 2024 Team Status: Inactive Member Role/Relationship Status Dates Zebulun Beam VSC, REEL CUTTER-C Primary Care Provider Active Start: November 06, 2024 End: November 06, 2024 Radha Alison REEL CUTTER, REEL CUTTER-C Attending Provider Active Start: November 06, 2024 End: November 06, 2024 Radha Alison REEL CUTTER, REEL CUTTER-C Referring Provider Active Start: November 06, 2024 End: November 06, 2024 Team Status: Inactive Member Role/Relationship Status Dates Zebulun Beam VSC, REEL CUTTER-C Primary Care Provider Active Start: November 06, 2024 End: November 06, 2024 Radha Alison REEL CUTTER, REEL CUTTER-C Attending Provider Active Start: November 06, 2024 End: November 06, 2024 Radha Alison REEL CUTTER, REEL CUTTER-C Referring Provider Active Start: November 06, 2024 End: November 06, 2024 Team Status: Inactive Member Role/Relationship Status Dates Zebulun Beam VSC, REEL CUTTER-C Primary Care Provider Active Start: November 07, 2024 End: November 07, 2024 Dr. Jorge Curtis DO Attending Provider Active Start: November 07, 2024 End: November 07, 2024 Dr. Jorge Curtis DO Referring Provider Active Start: November 07, 2024 End: November 07, 2024 Team Status: Inactive Member Role/Relationship Status Dates Zebulun Beam VSC, REEL CUTTER-C Primary Care Provider Active Start: November 14, 2024 End: November 14, 2024 Dr. Jorge Curtis DO Attending Provider Active Start: November 14, 2024 End: November 14, 2024 Dr. Jorge Curtis DO Referring Provider Active Start: November 14, 2024 End: November 14, 2024 Team Status: Inactive Member Role/Relationship Status Dates Zebulun Beam VSC, REEL CUTTER-C Primary Care Provider Active Start: November 21, 2024 End: November 21, 2024 Dr. Jorge Curtis DO Attending Provider Active Start: November 21, 2024 End: November 21, 2024 Dr. Jorge Curtis DO Referring Provider Active Start: November 21, 2024 End: November 21, 2024 Team Status: Inactive Member Role/Relationship Status Dates Zebulun Beam VSC, REEL CUTTER-C Primary Care Provider Active Start: November 28, 2024 End: November 28, 2024 Dr. Jorge Curtis DO Attending Provider Active Start: November 28, 2024 End: November 28, 2024 Dr. Jorge Curtis DO Referring Provider Active Start: November 28, 2024 End: November 28, 2024 Team Status: Inactive Member Role/Relationship Status Dates Zebulun Beam VSC, REEL CUTTER-C Primary Care Provider Active Start: December 05, 2024 End: December 05, 2024 Zebulun Beam VSC, REEL CUTTER-C Referring Provider Active Start: December 05, 2024 End: December 05, 2024 Dr. Jorge Curtis DO Attending Provider Active Start: December 05, 2024 End: December 05, 2024 Team Status: Active Member Role/Relationship Status Dates Zebulun Beam VSC, REEL CUTTER-C Primary Care Provider Active Start: December 10, 2024 Dr. Jorge Curtis DO Attending Provider Active Start: December 10, 2024 Team Status: Inactive Member Role/Relationship Status Dates Zebulun Beam VSC, REEL CUTTER-C Primary Care Provider Active Start: December 12, 2024 End: December 12, 2024 Zebulun Beam VSC, REEL CUTTER-C Referring Provider Active Start: December 12, 2024 End: December 12, 2024 Dr. Jorge Curtis DO Attending Provider Active Start: December 12, 2024 End: December 12, 2024 Team Status: Active Member Role/Relationship Status Dates Zebulun Beam VSC, REEL CUTTER-C Primary Care Provider Active Start: December 14, 2024 Dr. Jorge Curtis DO Attending Provider Active Start: December 14, 2024 Dr. Jorge Curtis DO Referring Provider Active Start: December 14, 2024 Team Status: Inactive Member Role/Relationship Status Dates Zebulun Beam VSC, REEL CUTTER-C Primary Care Provider Active Start: January 09, 2025 End: January 09, 2025 Zebulun Beam VSC, REEL CUTTER-C Referring Provider Active Start: January 09, 2025 End: January 09, 2025 Dr. Rolan Hoover MD Attending Provider Active S tart: January 09, 2025 End: January 09, 2025 Team Status: Inactive Member Role/Relationship Status Dates Zebulun Beam VSC, REEL CUTTER-C Primary Care Provider Active Start: January 14, 2025 End: January 14, 2025 Zebulun Beam VSC, REEL CUTTER-C Referring Provider Active Start: January 14, 2025 End: January 14, 2025 Dr. Jorge Curtis DO Attending Provider Active Start: January 14, 2025 End: January 14, 2025 Goals (unrecognized section and content) Goals may be documented in a n alternate sectionGoals may be documented in an alternate sectionGoals may be documented in an alternate sectionGoals may be documented in an alternate section (unrecognized sect ion and content) No Status Records Found INFORMATION SOURCE (unrecogn ized section and content) DATE CREATED AUTHOR 02/03/2025 [facility] FOR RECORDS PERTAINING TO PATIENTS WHO ARE OR HAVE BEEN ENROLLED IN A CHEMICAL DEPENDENCY/SUBSTANCEABUSE PROGRAM, SOME INFORMATION MAY BE OMITTED. This clinical summary was aggregated from multiple sources. Caution should be exercised in using it in the provision of clinical care. This summary normalizes information from multiple sources, and as a consequence, information in this document may materially change the coding, format and clinical context of patient data. In addition, data may be omitted in some cases. CLINICAL DECISIONS SHOULD BE BASED ON THE PRIMARY CLINICAL RECORDS. [employer] provides no warranty or guarantee of the accuracy or completeness of information in this document.
--- NOTE | 2025-02-11 09:48 | STRESSREP_ITS ---
Stress Test Report Exercise myocardial perfusion stress test. 64-year-old male with a history of coronary artery disease Stress protocol: Resting EKG demonstrates normal sinus rhythm with a rate of 81 bpm resting blood pressure is 144/82 mmHg. The patient exercised according to the regular Matt protocol for a total duration of 5 minutes and 30 seconds attaining a maximum heart rate of 137 bpm which was 88% of maximum predicted heart rate; the maximum workload was 7 metabolic equivalents. At rest there were no ST or T wave changes noted to suggest ischemia and at peak exercise upsloping ST changes only were noted which did not meet the criteria for ischemia. No clinical angina was noted the test was terminated due to the target heart rate being ach ieved/fatigue. The peak blood pressure was 178/80 mmHg. Rate-pressure product was 24,000. Myocardial perfusion protocol. 11.8 mCi of technetium 99m sestamibi was injected at rest. The patient exer cised according to regular Matt protocol for total duration of 5-1/2 minutes and at peak exercise 33.5 mCi of technetium 99m sestamibi was injected stress images were obtained stress and rest images were reconstructed in comparing the short axis vertical long and horizontal long axis. Gated images were also obtained. Perfusion SPECT analysis: Review of the stress images demonstrate normal uptake of tracer noted in all areas of the myocardium. The resting images similarly demonstrate normal uptake of tracer noted in all areas of the myocardium. No areas of reversibility are noted to suggest ischemia no previous infarct was noted. Gated SPECT analysis: The gated ejection fraction is 67%. Conclusion: Normal exercise myocardial perfusion stress test at a moderate workload Preserved ejection fraction.
== END | disposition home or self-care (01) ==
LOC: CVS 06:16
PROVIDERS: Referring Provider Internal Medicine Cardiovascular Disease; Visit Provider Internal Medicine Cardiovascular Disease
DX: I25.10 Atherosclerotic heart disease of native coronary artery without angina pectoris (principal)
CPT/HCPCS: 78452; 93017; 93306; A9500; A4216